=== PATIENT | female | born 1965 | race African-American/Black ===

== ENCOUNTER 2016-12-11 21:21 | Emergency (ER) | payer OTHER ==
[~2016-12-11] VITALS: Ht 167.6 cm; Wt 73.5 kg
[~2016-12-11 21:21] MED LIST: ACET500C5 PO; ALBU18HF IH; GABA600T PO; GLIM2TAB PO; INSU100C SC; LANT3I SC; METO10TA96 PO; NOV SC; ONDA4TAB35 PO; WARF5TAB72 PO
[2016-12-11 21:24] VITALS: Ht 167.6 cm; Wt 73.5 kg
--- NOTE | 2016-12-12 01:20 | RADRPT ---
PROCEDURE: XR Chest. CLINICAL INDICATION: Chest Pain. TECHNIQUE: Single frontal view of the chest was obtained. COMPARISON: 10/14/2015 FINDINGS: The cardiomediastinal silhouette is normal size. Pulmonary vasculature is within normal limits. Th e lungs are clear. No signs of pleural fluid or pneumothorax are seen. The osseous structures and soft tissues are unre markable. IMPRESSION: No evidence for active cardiopulmonary disease. RPTAT: HBST .Charles Bolivar MD, MD Date Time Electronically viewed and signed by .Charles Bolivar MD, on 12/12/2016 01:20 .T/
[2016-12-12 01:41] LABS: CHLORIDE 97 mmol/L (97-110); INR 0.92; POTASSIUM 3.7 mmol/L (3.5-5.1); PROTIME 12.4 Sec (12.2-14.2); SODIUM 140 mmol/L (135-144)
[2016-12-12 01:42] LABS: PARTIAL THROMBOPLASTIN TIME 26.9 Sec (25.0-35.0)
[2016-12-12 01:43] LABS: ANION GAP 17 (8-16); BILIRUBIN,INDIRECT 0.1 mg/dl (0-1.1); BILIRUBIN,TOTAL 0.1 mg/dl (0.2-1.3); CARBON DIOXIDE 30 mmol/L (21-31); CREATININE 0.52 mg/dl (0.44-1.00)
[2016-12-12 01:44] LABS: ALANINE AMINOTRANSFERASE 24 IU/L (13-69); ALBUMIN/GLOBULIN RATIO 0.93; ALKALINE PHOSPHATASE 152 IU/L (42-121); ASPARTATE AMINO TRANSFERASE 24 IU/L (15-46); BLOOD UREA NITROGEN 13 mg/dl (7-20); GLUCOSE 377 mg/dl (70-220); TOTAL PROTEIN 8.3 g/dl (6.1-8.1)
[2016-12-12 01:51] LABS: B-TYPE NATRIURETIC PEPTIDE 54 PG/ML (0-125)
--- NOTE | 2016-12-12 01:58 | RADRPT ---
PROCEDURE: ULTRASOUND BILATERAL LOWER EXTREMITY VENOUS CLINICAL INDICATION: 51-year-old female with lower extremity pain. TECHNIQUE: Multiple sonographic images of the bilateral lower extremity deep venous system was obt ained utilizing grayscale, color-flow, compressive sonography and doppler imaging with augmentation. The images were reviewed on a PACS workstation. COMPARISON: None. FINDINGS: There is normal compressibility and flow within the common femoral, deep femoral, superficial femora l, popliteal, posterior tibial and peroneal veins. IMPRESSION: No sonographic evidence for deep venous thrombosis. .Marshall Maldonado MD, MD Date Time Electronically viewed and signed by .Marshall Maldonado MD, MD on 12/12/2016 01:58 .Davis/
[2016-12-12 02:01] LABS: TROPONIN-I < 0.010 ng/ml (0.00-0.12)
[2016-12-12 02:08] LABS: BASOPHILS % 0.3 % (0.0-2.0); EOSINOPHILS # 0.1 10^3/ul (0.0-0.5); EOSINOPHILS % 1.4 % (0.0-7.0); HEMATOCRIT 36.7 % (37.0-47.0); HEMOGLOBIN 12.3 g/dl (12.0-16.0); LYMPHOCYTES # 2.5 10^3/ul (0.8-2.9); LYMPHOCYTES % 40.4 % (15.0-51.0); MEAN CORPUSCULAR HEMOGLOBIN 26.7 pg (29.0-33.0); MEAN CORPUSCULAR HGB CONC 33.4 g/dl (32.0-37.0); MEAN PLATELET VOLUME 8.6 fl (7.4-10.4); MONOCYTE # 0.5 10^3/ul (0.3-0.9); MONOCYTES % 7.4 % (0.0-11.0); NEUTROPHIL # 3.1 10^3/ul (1.6-7.5); NEUTROPHILS % 50.5 % (39.0-77.0); PLATELET COUNT 325 10^3/UL (140-440); RED BLOOD COUNT 4.59 10^6/ul (4.20-5.40); UNCORRECTED WBC 6.2 10^3/ul (4.8-10.8); WHITE BLOOD COUNT 6.2 10^3/ul (4.8-10.8)
[2016-12-12 02:10] LABS: CONDITION 1; LH ANALYZER COMMENTS 1
[2016-12-12] MEDS ORDERED: SOD CHLORIDE 0.9% 1,000 ML IV STA (03:38)
[2016-12-12] MEDS ORDERED: SOD CHLORIDE 0.9% 100 ML ONE (03:45)
[2016-12-12] MEDS ORDERED: IOHEXOL 300MG/ML 150 ML BTL ONE (03:46)
[2016-12-12] MEDS: INSULIN LISPRO 100 UNIT/ML VIAL SC STA ×2 (04:29→04:35)
[2016-12-12] MEDS ORDERED: INSULIN LISPRO 100 UNIT/ML VIAL SC STA (04:37)
[2016-12-12 04:54] LABS: ADD UMIC YES; URINE BILIRUBIN (Dip) NEGATIVE (NEGATIVE); URINE BLOOD (Dip) NEGATIVE (NEGATIVE); URINE COLOR LT. YELLOW (YELLOW); URINE GLUCOSE (Dip) >=1000 % (NEGATIVE); URINE KETONES (Dip) NEGATIVE (NEGATIVE); URINE LEUKOCYTE ESTERASE (Dip) TRACE (NEGATIVE); URINE NITRITE (Dip) NEGATIVE (NEGATIVE); URINE TOTAL PROTEIN (Dip) NEGATIVE (NEGATIVE); URINE UROBILINOGEN (Dip) 0.2 E.U./dL (0.1-1.0)
--- NOTE | 2016-12-12 04:57 | RADRPT ---
PROCEDURE: CTA CHEST WITH CONTRAST CLINICAL INDICATION: 51-year-old female with shortness of breath. The patient has a history of kellen or pulmonary embolus. TECHNIQUE: The study was performed utilizing a [employer] VCT 64-slice CT scanner. Direct axi al sections were obtained from the thoracic inlet through the chest to the upper abdomen with a bolu s injection of 100 cc of Omnipaque-300 nonionic contrast material. Sagittal, coronal and maximal int ensity projections re-formations were obtained. Automated exposure control and iterative reconstruct ion techniques were utilized for this examination. The images were reviewed on a PACS workstation. CTD/vol = 39.3 mGy; Total Exam DLP = 438.5 mGy-cm. COMPARISON: CT abdomen/pelvis August 04, 2015; the patient had prior CTAs of the chest from 2015 and October 25, 2015 performed at [facility] however the images are not onli ne for direct comparison however the dictations were utilized. FINDINGS: The aorta is without aneurysmal dilatation or dissection. There is trace fluid within the pericardia l recess. There are small lymph nodes seen within the mediastinum which are not pathologic by size c riteria. The central pulmonary arteries are without evidence for filling defect to suggest pulmonary embolus or thrombus. 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 There are nonocclusive filling defects seen within the right truncus anterior on axial image 3-101 as well as in the distal right interlobar ar e branches on axial image 3-127. There is minimal bilateral posterior dependent subsegmental atelec tasis. There is no evidence for a pneumothorax. The osseous structures are unremarkable. Scans through the upper abdomen reveals that the upper liver is enlarged having a maximal length of approximately 24.0 cm with diffuse decreased density consistent with fatty infiltration. The adrenal glands have a normal appearance. The upper kidneys are functional and are without evidence for obst ruction. IMPRESSION: 1. No CTA evidence for thoracic aortic aneurysm/dissection. 2. Somewhat limited examination secondary to incomplete opacification of the pulmonary arterial bra nches. There appear to be nonocclusive filling defects within the right trunkus anterior and distal right interlobar pulmonary arterial branches. It is difficult to tell whether this represents incom plete recanalization of prior pulmonary embolus versus recurrent pulmonary embolus. Clinical correl ation is necessary. 3. Minimal bilateral posterior dependent subsegmental atelectasis. 4. Hepatomegaly with diffuse fatty infiltration. CRITICAL RESULTS: A call report was made to [facility]IM[facility] Ch on December 12, 2016 at 04:4 0 a.m. .Marshall Maldonado MD, MD Date Time Electronically viewed and signed by .Marshall Maldonado MD, MD on 12/12/2016 04:57 .M/
[2016-12-12 05:16] LABS: URINE RBCS 0-2 /HPF (0)
[2016-12-12 05:17] LABS: BACTERIA,URINE OCCASIONAL; SQUAMOUS EPITHELIAL CELL,UR FEW
[2016-12-12] MEDS ORDERED: ENOX100D2 SC (06:03)
[2016-12-12] MEDS ORDERED: WARF5TAB72 PO (06:04)
[2016-12-12] MEDS ORDERED: LANT3I SC (06:15)
[2016-12-12] MEDS ORDERED: GABA100C14 PO (06:28)
[2016-12-12] MEDS ORDERED: ENOXAPARIN 80 MG/0.8 ML SYG SC ONE (06:30)
[2016-12-12] MEDS ORDERED: ENOXAPARIN 30 MG/0.3 ML SYG SC ONE (06:30)
[2016-12-12 06:35] VITALS: TEMP 98.3
[2016-12-12 06:55] VITALS: BP 106/78; PULSE 74; RESP 18
--- NOTE | 2016-12-12 07:15 | ERD ---
ER Documentation Chief Complaint Date/Time DATE: 12/12/16 TIME: 06:36 Chief Complaint right leg pain,right toes pain, no injury HPI Patient is a 51-year-old female with past medical history of diabetes, diabetic neuropathy, pulmonary embolism, DVT, asthma who presents to the emergency department with right leg and foot pain. She states that her pain started approximately 2 days ago. She describes the pain to be burning. Patient also complaining of swelling to her right lower leg. Patient states that she's noted prominence and bulging of her veins. She denies any weakness or tingling. Denies any trouble ambulating. Patient also states that she has a wound to her right big toe which is not healing. She denies any chest pain but is complaining of shortness of breath. She states that her shortness of breath is worse when lying down. Patient does have a history of pulmonary embolism approximately one year ago. Patient states that she was started on warfarin therapy but stopped it approximately 1.5 months ago given that her managing physician retired. Patient denies any recent travel, recent surgery, hemoptysis , prolonged sitting or OCP use. She denies any fevers, chills, nausea, vomiting , abdominal pain or loss of consciousness. She states the last time she took her insulin was approximately 1.5 months ago. Since her previous physician retired, patient has not had any medication refills. Patient denies any polyphagia or polyuria. Patient admits to polydipsia. She does report burning pain with urination. ROS All systems reviewed and are negative except as per history of present illness. Medications Home Meds Active Scripts Gabapentin* (Gabapentin*) 100 Mg Capsule, 100 MG PO TID, #30 CAP Prov:ANAND ASHER PA-C 12/12/16 Insulin Glargine* (Lantus*) 100 Unit/Ml Soln, 36 UNIT SC QHS, #1 VIAL Prov:ANAND ASHER PA-C 12/12/16 Warfarin Sodium* (Coumadin*) 5 Mg Tablet, 5 MG PO DAILY, #10 TAB Prov:ANAND ASHER PA-C 12/12/16 Enoxaparin Sodium (Enoxaparin Sodium) 100 Mg/1 Ml Syringe, 70 MG SC BID for 7 Days Prov:ANAND ASHER PA-C 12/12/16 Acetaminophen* (Tylophen*) 500 Mg Capsule, 1 CAP PO Q6H Y for PAIN AND OR ELEVATED TEMP, #20 CAP Prov:STAN PATEL NP 05/15/16 Metoclopramide Hcl* (Metoclopramide Hcl*) 10 Mg Tablet, 10 MG PO TID Y for NAUSEA AND/OR VOMITING, #30 TAB Prov:KANDICAROLINACory 09/07/15 Insulin Aspart* (Novolog Insulin Vial*) 100 U/Ml Vial, 12 UNIT SC WITH MEALS BEDTIME, #1 VIAL Prov:KANDIKELLY GILL 09/07/15 Insulin Glargine* (Lantus*) 100 Unit/Ml Soln, 36 UNIT SC HS, #1 VIAL Prov:KELLY CHAU 09/07/15 Ondansetron Hcl* (Zofran* ODT) 4 mg -ODT Tab.disper, 4 MG PO Q4H Y for NAUSEA AND OR VOMITING, #20 TAB Prov:MADISON BELL MD 09/01/15 Insulin Glargine* (Lantus*) 100 Unit/Ml Soln, 36 UNIT SC DAILY, #30 EA 3 Refills Prov:ELISA ZIMMERMAN 05/22/15 Reported Medications Warfarin Sodium* (Coumadin*) Unknown Strength Tablet, PO DAILY, #10 TAB 05/15/16 Insulin Lispro (Humalog) 100 U/Ml Cartridge, 0 SC SLIDING SCALE AC, EA 09/01/15 Glimepiride* (Glimepiride*) 2 Mg Tablet, 2 MG PO BID, TAB 05/16/15 Gabapentin* (Neurontin*) 600 Mg Tablet, 600 MG PO DAILY, TAB 05/16/15 Albuterol Sulfate* (Ventolin HFA*) 18 Gm Hfa.aer.ad, 2 PUFF IH Q4H Y for WHEEZING AND RESP DISTRESS, EA 05/16/15 Allergies Allergies: Coded Allergies: metformin (Verified Allergy, Mild, itchiness, 09/02/15) sitagliptin (Verified Allergy, Mild, nausea,vomiting, 09/02/15) Sulfa (Sulfonamide Antibiotics) (Verified Allergy, Unknown, 09/02/15) Uncoded Allergies: [id number] (SULFA (SULFONAMIDE ANTIBIOTICS)) (Allergy, Mild, 09/01/10) PMhx/Soc Medical and Surgical Hx: pt denies Surgical Hx History of Surgery: No Anesthesia Reaction: No Hx Neurological Disorder: No Hx Respiratory Disorders: Yes (PE, Asthma) Hx Cardiac Disorders: No Hx Psychiatric Problems: No Hx Miscellaneous Medical Probl: Yes (DM, Neuropathy) Hx Alcohol Use: No Hx Substance Use: No Hx Tobacco Use: No Smoking Status: Never smoker FmHx Family History: diabetes Physical Exam Vitals Vital Signs Date Time Temp Pulse Resp B/P Pulse Ox O2 Delivery O2 Flow Rate FiO2 12/12/16 06:55 74 18 106/78 98 Room Air 12/12/16 06:35 98.3 74 16 106/78 100 Room Air 12/12/16 06:03 72 16 108/67 100 Room Air 12/12/16 03:49 83 14 129/87 100 Room Air 12/11/16 21:24 96.5 81 20 146/94 99 Physical Exam GENERAL: Well-developed, well-nourished female. Appears in no acute distress. HEAD: Normocephalic, atraumatic. No deformities or ecchymosis. EYE: Pupils equal, round, and reactive to light. EOMs intact. No conjunctival erythema. No scleral icterus. No eye discharge. ENT: External ear without any masses or tenderness. Auditory canals clear bilaterally. TM visualized bilaterally, non-erythematous, non-bulging. Nasal mucosa pink with no discharge. Oropharynx is pink without any tonsillar erythema or exudates. No uvula deviation. No kissing tonsils. NECK: Supple. No lymphadenopathy or thyromegaly. No meningismus. No JVD. No bruits. Trachea midline. LUNG: Clear to auscultation bilaterally. No rhonchi, wheezing, rales or coarse breath sounds. HEART: Regular rate and rhythm. No murmurs, rubs or gallops. ABDOMEN: Soft, nontender, and nondistended. Positive bowel sounds in all four quadrants. No rebound tenderness, no guarding. (-) McBurney's point tenderness. No CVA tenderness. BACK: No midline tenderness. EXTREMITIES: Equal pulses bilaterally. No peripheral clubbing, cyanosis or edema. No unilateral leg swelling. NEUROLOGIC: Alert and oriented to person, place and time. Moving all four extremities. 5/5 strength in all extremities. Normal speech. Steady gait. Negative Brudzinski sign. Negative Kernig sign. SKIN: Normal color. Warm and dry. No rashes or lesions. RIGHT LOWER EXTREMITY: No deformity, erythema or ecchymosis. +Pitting edema to miranda. Superficial abrasions to the right big toe. Prominent bulging vein noted of medial aspect of lower leg. Full ROM of toes, ankle. +Squeeze test. Sensation intact to light touch. Neurovascularly intact. (Able to plantarflex, dorsiflex, bre foot, invert foot, raise big toe.) 2+ DP and DT pulses. Result Diagram: 12/12/1610612/12/16106 Results 24 hrs Laboratory Tests Test 12/12/16 01:07 12/12/16 03:30 12/12/16 04:33 12/12/16 05:37 Activated Partial Thromboplast Time 26.9Sec Alanine Aminotransferase (ALT/SGPT) 24IU/L Albumin 4.0g/dl Albumin/Globulin Ratio 0.93 Alkaline Phosphatase 152IU/L Anion Gap 17 Aspartate Amino Transf (AST/SGOT) 24IU/L B-Type Natriuretic Peptide 54PG/ML Basophils # 0.010^3/ul Basophils % 0.3% Blood Morphology Comment Blood Urea Nitrogen 13mg/dl Calcium Level 9.0mg/dl Carbon Dioxide Level 30mmol/L Chloride Level 97mmol/L Creatinine 0.52mg/dl Direct Bilirubin 0.00mg/dl Eosinophils # 0.110^3/ul Eosinophils % 1.4% Globulin 4.30g/dl Glucose Level 377mg/dl Hematocrit 36.7% Hemoglobin 12.3g/dl INR International Normalized Ratio 0.92 Indirect Bilirubin 0.1mg/dl Lymphocytes # 2.510^3/ul Lymphocytes % 40.4% Mean Corpuscular Hemoglobin 26.7pg Mean Corpuscular Hemoglobin Concent 33.4g/dl Mean Corpuscular Volume 80.0fl Mean Platelet Volume 8.6fl Monocytes # 0.510^3/ul Monocytes % 7.4% Neutrophils # 3.110^3/ul Neutrophils % 50.5% Nucleated Red Blood Cells # 0.010^3/ul Nucleated Red Blood Cells % 0.0/100WBC Platelet Count 77357^3/UL Potassium Level 3.7mmol/L Prothrombin Time 12.4Sec Prothrombin Time Ratio 1.0 Red Blood Count 4.5910^6/ul Red Cell Distribution Width 15.0% Sodium Level 140mmol/L Total Bilirubin 0.1mg/dl Total Protein 8.3g/dl Troponin I < 0.010ng/ml White Blood Count 6.210^3/ul Urine Bacteria OCCASIONAL Urine Bilirubin NEGATIVE Urine Clarity CLEAR Urine Color LT. YELLOW Urine Glucose >=1000% Urine Hemoglobin NEGATIVE Urine Ketones NEGATIVE Urine Leukocyte Esterase TRACE Urine Microscopic RBC 0-2/HPF Urine Microscopic WBC 5-10/HPF Urine Nitrite NEGATIVE Urine Specific Louisa <=1.005 Urine Squamous Epithelial Cells FEW Urine Total Protein NEGATIVE Urine Urobilinogen 0.2 E.U./dL Urine pH 6.5 Bedside Glucose 318mg/dL 238mg/dL Current Medications Medications (Trade) Dose Ordered Sig/Reyna Route PRN Reason Start Time Stop Time Status Last Admin Dose Admin Sodium Chloride (NS) 1,000 ml @ 1,000 mls/hr Q1H STAT IV 12/12/16 03:38 12/12/16 04:37 DC 12/12/16 04:14 Insulin Human Lispro 8 unit 8 unit ONCE STAT SC 12/12/16 03:38 12/12/16 04:39 DC Sodium Chloride (NS) 100 ml @ ud STK-MED ONCE .ROUTE 12/12/16 03:45 12/12/16 03:46 DC 12/12/16 04:17 Iohexol (Omnipaque 300mg/ ml) 150 ml STK-MED ONCE .ROUTE 12/12/16 03:46 12/12/16 03:47 DC 12/12/16 04:17 Insulin Human Lispro (Humalog) 6 unit ONCE STAT SC 12/12/16 04:37 12/12/16 04:39 DC 12/12/16 04:40 Enoxaparin Sodium (Lovenox) 73 mg ONCE ONCE SC 12/12/16 06:30 12/12/16 06:30 DC Enoxaparin Sodium (Lovenox) 73 mg ONCE ONCE SC 12/12/16 06:30 12/12/16 06:31 DC 12/12/16 06:32 Procedures/MDM ED COURSE: The patient was stable throughout ED course. I kept the patient and/or family informed of laboratory and diagnostic imaging results throughout the ED course. EKG: Read by Dr. Howard, attending physician. EKG shows normal sinus rhythm at a rate of 71 bpm. No arrhythmias, acute ST elevations or T wave changes were noted. DIAGNOSTIC IMAGING: Read by radiologist. DIAGNOSTIC IMAGING REPORT Patient: SEPIDEH ARCEO : 1965 Age: 51 Sex: F MR #: [id number] DOS: 12/12/16 0034 Ordering MD: ANAND ASHER PA-C Location: [facility] Room/Bed: PROCEDURE: XR Chest. CLINICAL INDICATION: Chest Pain. TECHNIQUE: Single frontal view of the chest was obtained. COMPARISON: 10/14/2015 FINDINGS: The cardiomediastinal silhouette is normal size. Pulmonary vasculature is within normal limits. The lungs are clear. No signs of pleural fluid or pneumothorax are seen. The osseous structures and soft tissues are unremarkable. IMPRESSION: No evidence for active cardiopulmonary disease. RPTAT: HBST .Charles Bolivar MD, MD Date Time Electronically viewed and signed by .Charles Bolivar MD, on 12/12/2016 01:20 .T/ CC: ANAND ASHER PA-C DIAGNOSTIC IMAGING REPORT Patient: SEPIDEH ARCEO : 1965 Age: 51 Sex: F MR #: [id number] DOS: 12/12/16 0034 Ordering MD: ANAND ASHER PA-C Location: [facility] Room/Bed: PROCEDURE: ULTRASOUND BILATERAL LOWER EXTREMITY VENOUS CLINICAL INDICATION: 51-year-old female with lower extremity pain. TECHNIQUE: Multiple sonographic images of the bilateral lower extremity deep venous system was obtained utilizing grayscale, color-flow, compressive sonography and doppler imaging with augmentation. The images were reviewed on a PACS workstation. COMPARISON: None. FINDINGS: There is normal compressibility and flow within the common femoral, deep femoral , superficial femoral, popliteal, posterior tibial and peroneal veins. IMPRESSION: No sonographic evidence for deep venous thrombosis. .Marshall Maldonado MD, MD Date Time Electronically viewed and signed by .Marshall Maldonado MD, MD on 12/12/2016 01:58 .M/ CC: ANAND ASHER PA-C DIAGNOSTIC IMAGING REPORT Patient: SEPIDEH ARCEO : 1965 Age: 51 Sex: F MR #: [id number] DOS: 12/12/16 0338 Ordering MD: ANAND ASHER PA-C Location: [facility] Room/Bed: PROCEDURE: CTA CHEST WITH CONTRAST CLINICAL INDICATION: 51-year-old female with shortness of breath. The patient has a history of prior pulmonary embolus. TECHNIQUE: The study was performed utilizing a ThumbT 64-slice CT scanner. Direct axial sections were obtained from the thoracic inlet through the chest to the upper abdomen with a bolus injection of 100 cc of Omnipaque- 300 nonionic contrast material. Sagittal, coronal and maximal intensity projections re-formations were obtained. Automated exposure control and iterative reconstruction techniques were utilized for this examination. The images were reviewed on a PACS workstation. CTD/vol = 39.3 mGy; Total Exam DLP = 438.5 mGy-cm. COMPARISON: CT abdomen/pelvis August 04, 2015; the patient had prior CTAs of the chest from July 31, 2016 and October 25, 2015 performed at [facility] however the images are not online for direct comparison however the dictations were utilized. FINDINGS: The aorta is without aneurysmal dilatation or dissection. There is trace fluid within the pericardial recess. There are small lymph nodes seen within the mediastinum which are not pathologic by size criteria. The central pulmonary arteries are without evidence for filling defect to suggest pulmonary embolus or thrombus. 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 There are nonocclusive filling defects seen within the right truncus anterior on axial image 3-101 as well as in the distal right interlobar are branches on axial image 3-127. There is minimal bilateral posterior dependent subsegmental atelectasis. There is no evidence for a pneumothorax. The osseous structures are unremarkable. Scans through the upper abdomen reveals that the upper liver is enlarged having a maximal length of approximately 24.0 cm with diffuse decreased density consistent with fatty infiltration. The adrenal glands have a normal appearance. The upper kidneys are functional and are without evidence for obstruction. IMPRESSION: 1. No CTA evidence for thoracic aortic aneurysm/dissection. 2. Somewhat limited examination secondary to incomplete opacification of the pulmonary arterial branches. There appear to be nonocclusive filling defects within the right trunkus anterior and distal right interlobar pulmonary arterial branches. It is difficult to tell whether this represents incomplete recanalization of prior pulmonary embolus versus recurrent pulmonary embolus. Clinical correlation is necessary. 3. Minimal bilateral posterior dependent subsegmental atelectasis. 4. Hepatomegaly with diffuse fatty infiltration. CRITICAL RESULTS: A call report was made to [facility] on December 12, 2016 at 04:40 a.m. .Marshall Maldonado MD, Date Time Electronically viewed and signed by .Marshall Maldonado MD, MD on 12/12/2016 04:57 .M/ CC: ANAND ASHER PA-C MEDICATIONS GIVEN: IV fluids, Humalog, Lovenox MEDICAL DECISION MAKING: Patient is a 51-year-old female with a past medical history of diabetes, diabetic neuropathy, pulmonary embolism, DVT, asthma who presented to the emergency department with right leg and foot pain. Vital signs were reviewed. Patient is afebrile. Patient was not hypoxic. CBC showed no evidence of systemic infection or severe anemia. CMP showed no evidence severe acidosis, alkalosis, renal failure, or liver disease. Glucose level was noted to be 377. Patient was given Humalog 6 units in the emergency department. Patient's glucose level came down to 238. Patient was restarted on Lantus. Patient was advised to follow-up with her primary care physician for management of her diabetes. UA showed no evidence of ketones, trace leukocyte esterase, +1000 glucose. Patient did not display signs of DKA or HHS. Troponin was negative. Chest x-ray was negative. EKG showed normal sinus rhythm with a heart rate of 71 bpm. BNP was 54. Low suspicion for ACS, pericarditis, arrhythmia, pneumothorax, pneumonia or congestive heart failure. Physical exam revealed swelling and prominence of veins to the patient's right lower extremity. Given the patient's history of DVT, bilateral venous doppler studies were obtained. Venous Doppler study showed No sonographic evidence for deep venous thrombosis. Given the patient's history of PE, a CTPA was ordered. I had a discussion with my supervising physician, Dr. Howard, prior to ordering the CTPA. CTPA showed no CTA evidence for thoracic aortic aneurysm/dissection. Somewhat limited examination secondary to incomplete opacification of the pulmonary arterial branches. There appear to be nonocclusive filling defects within the right trunkus anterior and distal right interlobar pulmonary arterial branches. It is difficult to tell whether this represents incomplete recanalization of prior pulmonary embolus versus recurrent pulmonary embolus. Clinical correlation is necessary. Minimal bilateral posterior dependent subsegmental atelectasis. Hepatomegaly with diffuse fatty infiltration. CTPA findings were discussed with Dr. Howard. At this time, the patient appears stable and can be managed on an outpatient basis. Patient will be started on Lovenox and Coumadin today. Patient was given her first dose of Lovenox here in the emergency department. Patient will need to have her INR checked in 2 days. Patient was advised to follow with her primary care physician or return to the emergency department in 2 days for INR recheck. At this time, the patient's presentation is most consistent with pulmonary embolism and diabetic neuropathy. Patient will be given gabapentin for her leg and foot pain. PRESCRIPTION: Lovenox, Coumadin, Gabapentin, Lantus DISCHARGE: At this time, patient is stable for discharge and outpatient management. I have instructed the patient to follow-up with his/her primary care physician or return to the ED in 1-2 days for INR check. I have instructed the patient to promptly return to the ER for any new or worsening symptoms including increased pain, fever, nausea, vomiting, weakness or LOC. The patient and/or family expressed understanding of and agreement with this plan. All questions were answered. Home care instructions were provided. I discussed this case with my supervising physician, Dr. Howard, on numerous occasions. Dr. Howard agreed with the above mentioned diagnosis, treatment plan and discharge plan. Patients random blood sugar level was elevated (>140), but appears stable without evidence of DKA or end organ failure. I had discussion with the patient about the risk of diabetes. I have advised the patient to follow up with his/her primary care physician for outpatient monitoring and treatment for elevated blood sugar levels in 2-3 days. I have instructed the patient to return to the ER for any new or worsening symptoms including chest pain, shortness of breath, headache, confusion, abdominal pain, nausea, vomiting, weakness or LOC. Departure Diagnosis: Primary Impression: Pulmonary embolism Pulmonary embolism type: other Chronicity: unspecified Acute cor pulmonale presence: without acute cor pulmonale Qualified Code: I26.99 - Other pulmonary embolism without acute cor pulmonale, unspecified chronicity Additional Impressions: Diabetes Diabetes mellitus type: type 1 Diabetes mellitus complication status: with unspecified complications Qualified Code: E10.8 - Type 1 diabetes mellitus with complication Poor compliance with medication Diabetic neuropathy associated with diabetes mellitus due to underlying condition Diabetes mellitus complication detail: with other neurological complication Qualified Code: E08.49 - Other diabetic neurological complication associated with diabetes mellitus due to underlying condition Condition: Stable Patient Instructions: Pulmonary Embolism, Managing Your Glucose Level for Diabetes and Kidney Disease Referrals: [facility] YOU HAVE RECEIVED A MEDICAL SCREENING EXAM AND THE RESULTS INDICATE THAT YOU DO NOT HAVE A CONDITION THAT REQUIRES URGENT TREATMENT IN THE EMERGENCY DEPARTMENT. FURTHER EVALUATION AND TREATMENT OF YOUR CONDITION CAN WAIT UNTIL YOU ARE SEEN IN YOUR DOCTORS OFFICE WITHIN THE NEXT 1-2 DAYS. IT IS YOUR RESPONSIBILITY TO MAKE AN APPOINTMENT FOR FOLOW-UP CARE. IF YOU HAVE A PRIMARY DOCTOR --you should call your primary doctor and schedule an appointment IF YOU DO NOT HAVE A PRIMARY DOCTOR YOU CAN CALL OUR PHYSICIAN REFERRAL HOTLINE AT IF YOU CAN NOT AFFORD TO SEE A PHYSICIAN YOU CAN CHOSE FROM THE FOLLOWING [facility] [address] [facility]. [facility] [address] [facility] [address] [facility] [address] [facility]. [facility] [address] [facility]. [facility] [address] [facility]. [facility] YOU HAVE RECEIVED A MEDICAL SCREENING EXAM AND THE RESULTS INDICATE THAT YOU DO NOT HAVE A CONDITION THAT REQUIRES URGENT TREATMENT IN THE EMERGENCY DEPARTMENT. FURTHER EVALUATION AND TREATMENT OF YOUR CONDITION CAN WAIT UNTIL YOU ARE SEEN IN YOUR DOCTORS OFFICE WITHIN THE NEXT 1-2 DAYS. IT IS YOUR RESPONSIBILITY TO MAKE AN APPOINTMENT FOR FOLOW-UP CARE. IF YOU HAVE A PRIMARY DOCTOR --you should call your primary doctor and schedule and appointment IF YOU DO NOT HAVE A PRIMARY DOCTOR YOU CAN CALL OUR PHYSICIAN REFERRAL HOTLINE AT . IF YOU CAN NOT AFFORD TO SEE A PHYSICIAN YOU CAN CHOSE FROM THE FOLLOWING [facility] INSTITUTIONS: [facility] [address] [place] [address] [facility] [address] [place], [place] [id number] [place] [address] [address] [place] [address] Additional Instructions: Call your primary care physician immediately for a follow-up appointment. Return to emergency department for any new or worsening symptoms not limited to chest pain, shortness of breath, vomiting, numbness, weakness. Start Lovenox today. Take twice per day x 7 days. Start Coumadin today. Recheck INR level in 2 days. If unable to be seen by your primary care physician, return to the ER. ANAND ASHER PA-C Dec 12, 2016 06:46
== END 2016-12-12 06:58 | disposition home or self-care (01) ==
LOC: FTE 21:21
DX: I26.99 Other pulmonary embolism without acute cor pulmonale (principal); J45.909 Unspecified asthma, uncomplicated; E08.49 Diabetes mellitus due to underlying condition with other diabetic neurological complication; Z79.01 Long term (current) use of anticoagulants; Z79.4 Long term (current) use of insulin; Z79.84 Long term (current) use of oral hypoglycemic drugs
CPT/HCPCS: 36415; 71010; 71275; 80053; 81001; 82962; 83880; 84484; 85025; 85610; 85730; 93005; 93965; 96360; 96361; 96372; J1650; J1815; J7030; Q9967; Z7502; Z7610; 81003

== ENCOUNTER 2017-04-04 12:43 | Inpatient (IN) | payer OTHER ==
[~2017-04-04] VITALS: Ht 167.6 cm; Wt 72.7 kg
[~2017-04-04 12:43] MED LIST changes: +ENOX100D2 SC; +GABA100C14 PO
[2017-04-04] MEDS ORDERED: ACETAMINOPHEN 325 MG TAB PO PRN (13:00)
[2017-04-04] MEDS ORDERED: ONDANSETRON 4 MG INJ IV PRN (13:00)
[2017-04-04] MEDS ORDERED: GABA-526 PO (13:47)
--- NOTE | 2017-04-04 13:51 | ERA ---
ER Documentation Chief Complaint Date/Time DATE: 04/04/17 TIME: 13:50 Chief Complaint sob and cp (bilat PE) HPI Patient is a 51-year-old female with diabetes and previous pulmonary embolism who presents with bilateral pulmonary embolism. The patient was seen at [facility] emergency department and diagnosed with bilateral pulmonary embolism. The patient was going to be a direct admit to [facility] because she is capitated here. However there are no beds available and therefore the patient was transferred from the [facility] emergency department to the [facility] emergency department. The patient describes chest pain which is sharp and stabbing. She also has radiation down her left arm. She said this started 48 hours ago and comes and goes. She is on Coumadin but ran out 2 weeks ago. She was placed on heparin drip at [facility]. She does not know the name of her primary doctor. ROS All systems reviewed and are negative except as per history of present illness. Medications Home Meds Active Scripts Insulin Glargine* (Lantus*) 100 Unit/Ml Soln, 36 UNIT SC QHS, #1 VIAL Prov:ANAND ASHER PA-C 12/12/16 Reported Medications Gabapentin* (Gabapentin*) 600 Mg Tablet, 600 MG PO QHS, #60 TAB 04/04/17 Warfarin Sodium* (Coumadin*) Unknown Strength Tablet, PO DAILY, #10 TAB 05/15/16 Insulin Lispro (Humalog) 100 U/Ml Cartridge, 0 SC SLIDING SCALE AC, EA 09/01/15 Glimepiride* (Glimepiride*) 2 Mg Tablet, 2 MG PO BID, TAB 05/16/15 Albuterol Sulfate* (Ventolin HFA*) 18 Gm Hfa.aer.ad, 2 PUFF IH Q4H Y for WHEEZING AND RESP DISTRESS, EA 05/16/15 Discontinued Reported Medications Gabapentin* (Neurontin*) 600 Mg Tablet, 600 MG PO DAILY, TAB 05/16/15 Discontinued Scripts Gabapentin* (Gabapentin*) 100 Mg Capsule, 100 MG PO TID, #30 CAP Prov:ANAND ASHER PA-C 12/12/16 Warfarin Sodium* (Coumadin*) 5 Mg Tablet, 5 MG PO DAILY, #10 TAB Prov:ANAND ASHER PA-C 12/12/16 Enoxaparin Sodium (Enoxaparin Sodium) 100 Mg/1 Ml Syringe, 70 MG SC BID for 7 Days Prov:ANAND ASHER PA-C 12/12/16 Acetaminophen* (Tylophen*) 500 Mg Capsule, 1 CAP PO Q6H Y for PAIN AND OR ELEVATED TEMP, #20 CAP Prov:STAN PATEL NP 05/15/16 Metoclopramide Hcl* (Metoclopramide Hcl*) 10 Mg Tablet, 10 MG PO TID Y for NAUSEA AND/OR VOMITING, #30 TAB Prov:KELLY CHAU 09/07/15 Insulin Aspart* (Novolog Insulin Vial*) 100 U/Ml Vial, 12 UNIT SC WITH MEALS BEDTIME, #1 VIAL Prov:KELLY CHAU 09/07/15 Insulin Glargine* (Lantus*) 100 Unit/Ml Soln, 36 UNIT SC HS, #1 VIAL Prov:KELLY CHAU 09/07/15 Ondansetron Hcl* (Zofran* ODT) 4 mg -ODT Tab.disper, 4 MG PO Q4H Y for NAUSEA AND OR VOMITING, #20 TAB Prov:MADISON BELL MD 09/01/15 Insulin Glargine* (Lantus*) 100 Unit/Ml Soln, 36 UNIT SC DAILY, #30 EA 3 Refills Prov:ELISA ZIMMERMAN 05/22/15 Allergies Allergies: Coded Allergies: metformin (Verified Allergy, Mild, itchiness, 04/04/17) sitagliptin (Verified Allergy, Mild, nausea,vomiting, 04/04/17) Sulfa (Sulfonamide Antibiotics) (Verified Allergy, Unknown, 04/04/17) Uncoded Allergies: [id number] (SULFA (SULFONAMIDE ANTIBIOTICS)) (Allergy, Mild, 09/01/10) PMhx/Soc History of Surgery: No Anesthesia Reaction: No Hx Neurological Disorder: No Hx Respiratory Disorders: Yes (PE, Asthma) Hx Cardiac Disorders: No Hx Psychiatric Problems: No Hx Miscellaneous Medical Probl: Yes (DM, Neuropathy) Hx Alcohol Use: No Hx Substance Use: No Hx Tobacco Use: No Smoking Status: Never smoker FmHx Family History: diabetes Physical Exam Vitals Vital Signs Date Time Temp Pulse Resp B/P Pulse Ox O2 Delivery O2 Flow Rate FiO2 04/04/17 13:30 99.4 93 18 123/80 100 Physical Exam Const: No acute distress Head: Atraumatic Eyes: Normal Conjunctiva ENT: Normal External Ears, Nose and Mouth. Neck: Full range of motion..~ No meningismus. Resp: Clear to auscultation bilaterally Cardio: Regular rate and rhythm, no murmurs Abd: Soft, non tender, non distended. Normal bowel sounds Skin: No petechiae or rashes Back: No midline or flank tenderness Ext: No cyanosis, or edema Neur: Awake and alert Psych: Normal Mood and Affect Results 24 hrs Current Medications Medications (Trade) Dose Ordered Sig/Reyna Route PRN Reason Start Time Stop Time Status Last Admin Dose Admin Ondansetron HCl (Zofran Inj) 4 mg ER BRIDGE PRN IV NAUSEA AND/OR VOMITING 04/04/17 13:00 04/05/17 12:59 Acetaminophen (Tylenol Tab) 650 mg ER BRIDGE PRN PO MILD PAIN/FEVER 04/04/17 13:00 04/05/17 12:59 Procedures/MDM Patient is a 51-year-old female who presents with bilateral pulmonary embolism. I spoke with Dr. Erickson who is already aware of the patient. The patient will be admitted to a telemetry bed. The patient has a workup that was performed at [facility] emergency department. She does not require any further workup here in the emergency department. She will be admitted to a telemetry bed. Departure Diagnosis: Primary Impression: Pulmonary embolism Qualified Code: I26.99 - Other acute pulmonary embolism without acute cor pulmonale Condition: KORIN Butts MD April 04, 2017 13:51
[2017-04-04] MEDS ORDERED: BISACODYL (EC) 5 MG TAB PO PRN (16:00)
[2017-04-04] MEDS ORDERED: hydrALAzine 20 MG INJ IV PRN (16:00)
[2017-04-04] MEDS ORDERED: HYDROCODONE/APAP (5/325) TAB PO PRN (16:00)
[2017-04-04] MEDS ORDERED: MAGNESIUM HYDROXIDE 30ML CUP PO PRN (16:00)
[2017-04-04] MEDS ORDERED: NACL 0.9% 3 ML SYG IV SCH (16:00)
[2017-04-04] MEDS ORDERED: ALBUTEROL 0.083% (NEB) 2.5 MG/3 ML AMP HHN PRN (16:30)
[2017-04-04] MEDS ORDERED: GLUCOSE GEL 15 GRAM TUBE BUCCAL PRN (17:00)
[2017-04-04] MEDS ORDERED: GLUCOSE GEL 15 GRAM TUBE PO PRN ×2 (17:00)
[2017-04-04] MEDS ORDERED: DEXTROSE 50% 50 ML SYRINGE IV PRN ×2 (17:00)
[2017-04-04] MEDS ORDERED: GLUCAGON 1 MG INJ IM PRN (17:00)
--- NOTE | 2017-04-04 17:16 | HP ---
DATE OF ADMISSION: 04/04/2017 REASON FOR ADMISSION: Transferred from outside facility because of bilateral pulmonary embolism. CONSULTANTS: Dr. Molina To from hematology. HISTORY OF PRESENT ILLNESS: This is a 51-year-old female with past medical history of pulmonary embolism on Coumadin, type 2 diabetes mellitus , diabetic neuropathy, asthma, and diabetic gastroparesis who went to the local emergency room because of sudden onset of chest pain that was substernal with associated radiation of chest pain to the left arm. The patient denied any associated nausea, vomiting, or diaphoresis. The patient verbalized that the chest pain is worse with deep inspiration. Other than that, the patient denied any cough or dyspnea on exertion. The patient denied any fevers, chills, abdominal pain, diarrhea, hematochezia, melena, dysuria, or hematochezia. The patient was complaining of bilateral eye redness and itching with increased secretions. The patient denied any known contacts to any conjunctivitis. In the emergency room at [facility], the patient underwent a CT angiogram of the chest that showed multiple acute to subacute/chronic bilateral lower lobe pulmonary emboli involving the lower lobes and upper lobes bilaterally extending to subsegmental level and associated with flattening of the intraventricular septum. Hence, the patient was started on a heparin drip, and the patient was transferred to [facility] for further evaluation because of insurance reasons. PAST MEDICAL HISTORY: 1. Pulmonary embolism. 2. Type 2 diabetes 3. Diabetic neuropathy. 4. Asthma. 5. Gastroparesis. 6. Anemia. PAST SURGICAL HISTORY: . HOME MEDICATIONS: 1. ProAir HFA 2 puffs inhaled q. 4 hours p.r.n. dyspnea. 2. Coumadin. 3. Gabapentin 600 mg p.o. at bedtime. 4. Glimepiride 2 mg p.o. b.i.d. 5. Lantus insulin 36 units subcutaneously at bedtime. 6. Lispro insulin as per sliding scale. ALLERGIES: 1. SULFA. 2. METFORMIN. 3. SITAGLIPTIN. SOCIAL HISTORY: The patient lives at home with her family. Denies any use of tobacco, alcohol, or illicit drugs. Currently unemployed. REVIEW OF SYSTEMS: A 12-point review of systems performed. The remaining review of systems were negative other than what is mentioned in history of present illness. PHYSICAL EXAMINATION: VITAL SIGNS: Temperature 99.4, pulse rate 90, respiratory rate 21, blood pressure 124/95, saturation 98% on low flow O2. GENERAL: The patient is an female lying in bed in no apparent distress. HEENT: Head normocephalic and atraumatic. Eyes: Anicteric. Sclerae are red and inflamed with tearing of eyes, right greater than left. ENT: Nasal septum is midline. Oral mucosa is dry. NECK: Supple. No JVD noticed. RESPIRATORY: Bilaterally clear to auscultation. No adventitious breath sounds. No use of accessory muscles of respiration. CARDIAC: Regular rate and rhythm. S1, S2 heard. ABDOMEN: Soft, nontender, and nondistended. Bowel sounds positive in all 4 quadrants. GENITOURINARY: Deferred. EXTREMITIES: No cyanosis. No clubbing. No calf tenderness. Bilateral dorsalis pedis pulses 1+. NEUROLOGIC: The patient is awake, alert. Nerves are grossly intact. LABORATORY AND DIAGNOSTIC DATA: Pending from [facility]. CT angiogram from outside facility shows multiple acute to subacute/chronic bilateral lower lobe pulmonary emboli involving the lower lobes and upper lobes bilaterally extending to the subsegmental level and associated with flatten of the intraventricular septum. IMPRESSION: This is a 51-year-old female with past medical history of pulmonary embolism who went to the local emergency room with chest pain and was found to have bilateral pulmonary embolism. She will be admitted here for further treatment and evaluation. ASSESSMENT AND PLAN: 1. Pulmonary embolism. Bilateral. The patient was not taking her Coumadin for the past 2 weeks. It is unclear whether the patient had recurrent pulmonary embolism because of this subtherapeutic warfarin. Nevertheless, the patient will be evaluated for any underlying hypercoagulable state. The patient denied any prolonged immobility in the recent past. A hematology consult will be obtained. A hypercoagulable workup including protein C, protein S, lupus anticoagulant, and antithrombin III will be ordered. 2. Chest pain. The chest pain could be most probably secondary to underlying pulmonary embolism. However, the patient will be ruled out for any underlying ACS. Serial troponins will be obtained. A 2D echocardiogram will be obtained. 3. Type 2 diabetes mellitus. The patient will be started on sliding scale insulin along with basal insulin and Lantus insulin. A hemoglobin A1c will be obtained to evaluate the blood glucose control over the past few weeks. THE PATIENT IS ALLERGIC TO METFORMIN AND SITAGLIPTIN. 4. Diabetic neuropathy. The patient will be continued on gabapentin. 5. Asthma. The patient will be started on inhaled bronchodilators PRN. She has no evidence of any asthma exacerbation. 6. Conjunctivitis. The patient will be started on otic antibiotics. Plan. The patient will be admitted to inpatient setting. The patient will be started on a carbohydrate controlled diet. The patient will be started on therapeutic Lovenox. The patient will be started on gastrointestinal prophylaxis. The patient will remain a FULL CODE. The rest of the patient's management will be based on clinical course, the results of diagnostic studies, and input from consultants. Based on the patient's clinical presentation, she most probably requires at least 2 midnights' stay for further management and evaluation of her clinical presentation. The case and management of this patient was fully discussed with Dr. Taylor. VANDANA TAYLOR MD, AM/VINCENT Conf#: [id number] DID#: [id number] MTDLeobardo
[2017-04-04 17:49] VITALS: TEMP 99.4
[2017-04-04] MEDS: INSULIN ASPART [NOVOLOG] 3 ML PEN SC SCH ×3 (18:00→21:00)
[2017-04-04 18:37] VITALS: Ht 167.6 cm; Wt 72.7 kg
[2017-04-04 18:48] VITALS: BP 118/65; PULSE 93; RESP 20
[2017-04-04] MEDS: CIPROFLOXACIN 0.3% 2.5 ML OPH BOTH EYES SCH ×4 (19:00→23:00)
--- NOTE | 2017-04-04 19:37 | CONS ---
Date/Time of Note Date/Time of Note DATE: 04/04/17 TIME: 19:32 Assessment/Plan Assessment/Plan Chief Complaint/Hosp Course The patient is a 51-year-old female with past medical history of pulmonary embolism treated with coumadin for > 6 months, with recurrent bilateral pulmonary embolism while off coumadin after running out of medication two weeks ago. 1. Pulmonary embolism, bilateral, recurrent. Her first PE was unprovoked and in itself would have likely warranted lifelong anticoagulation. Given that she has had recurrent unprovoked PEs with her first clot treated with > 6 months of anticoagulation with recurrence with a few weeks of stopping coumadin, she would warrant lifelong anticoagulation regardless of hypercoagulable work-up. -.A hypercoagulable workup including protein C, protein S, lupus anticoagulant, and antithrombin III was ordered, will add beta2 glycoprotein IgM and IgG and anticardiolipin IgM and IgG - If patient found to be negative for antiphospholipid antibody syndrome, could switch to one of the new oral anticoaulgants such as eliquis or xarelto. Will request auth for xarelto or eliquis. - will check D-dimer as a baseline - Patient started on therapeutic lovenox - LE dopplers negative - Will request case management to obtain auth for pt to follow up with me upon discharge 2. History of right ovarian cyst, no exchange underwriting consultant 5+ years per patient, will check CA 125 and US pelvis to ensure not provoking factor for PE though less likely given chronicity over 5 years Problems: Consultation Date/Type/Reason Admit Date/Time April 04, 2017 at 12:47 Date of Consultation: April 04, 2017 Type of Consultation: Hematolology Hx of Present Illness The patient is a 51-year-old female with past medical history of pulmonary embolism on Coumadin, type 2 diabetes mellitus, diabetic neuropathy , asthma, and diabetic gastroparesis who went to the local emergency room because of redness and crusting of her eyes, as well as an increase in shortness of breath along with persistent left chest pleuritic pain as well as numbness/pain of left arm. She states that she was initially diagnosed with multiple PE over 6 months ago and was treated with lovenox/coumadin for > 6 months. She denies any provoking factors at that time, no surgeries, no smoking , no hormone replacement or OCP, no immobility, no long car or plane rides, no known history of cancer. She states that she was told that she would likely need lifelong anticoagulation. She was taking 5 mg of coumadin daily and was supposed to have INR checks via home health, but states that no one ever came back and she did not have INR checks during the time she was on coumadin. She states that she ran out of coumadin a few weeks ago. In the emergency room at [facility], the patient underwent a CT angiogram of the chest that showed multiple acute to subacute/chronic bilateral lower lobe pulmonary emboli involving the lower lobes and upper lobes bilaterally extending to subsegmental level and associated with flattening of the intraventricular septum. Hence, the patient was started on a heparin drip, and the patient was transferred to [facility] for further evaluation because of insurance reasons. Past Medical History 1. Pulmonary embolism. 2. Type 2 diabetes 3. Diabetic neuropathy. 4. Asthma. 5. Gastroparesis. 6. Anemia. 7. Right ovarian cyst without exchange underwriting consultant 5+ years per patient Past Surgical History Family History Significant Family History: no pertinent family hx Social History The patient lives at home with her family. Denies any use of tobacco, alcohol, or illicit drugs. Currently unemployed. Smoking Status: Never smoker Exam/Review of Systems Vital Signs Vitals Vital Signs Date Time Temp Pulse Resp B/P Pulse Ox O2 Delivery O2 Flow Rate FiO2 04/04/17 18:48 99.8 93 20 118/65 99 Nasal Cannula 2.0 Exam Constitutional: alert, oriented Head: normocephalic Neck: supple Respiratory: clear to auscultation Cardiovascular: regular rate and rhythm Gastrointestinal: non-tender, soft Musculoskeletal: nl extremities to inspection Neurological: CORRECTIONS CORPORAL II-XII intact Results Results 24 hrs Laboratory Tests Test 04/04/17 19:20 Bedside Glucose 147 Medications Medications Current Medications Ondansetron HCl (Zofran Inj) 4 mg Q6H PRN IV NAUSEA AND/OR VOMITING; Start 04/04 at 16:00 Acetaminophen (Tylenol Tab) 650 mg Q6H PRN PO PAIN LEVEL 1-3 OR FEVER; Start at 16:00 Acetaminophen/ Hydrocodone Bitart ([place] (5/325)) 1 tab Q6H PRN PO MODERATE PAIN LEVEL 4-6; Start 04/04/17 at 16:00 Morphine Sulfate (morphine) 2 mg Q4H PRN IV SEVERE PAIN LEVEL 7-10; Start at 16:00 Magnesium Hydroxide (Milk Of Mag) 30 ml DAILY PRN PO CONSTIPATION; Start at 16:00 Bisacodyl (Dulcolax) 5 mg DAILY PRN PO CONSTIPATION; Start 04/04/17 at 16:00 Famotidine (Pepcid) 20 mg Q12 PO ; Start 04/04/17 at 21:00 Enoxaparin Sodium (Lovenox) 75 mg Q12 SC ; Start 04/04/17 at 21:00 Ciprofloxacin HCl (Ciloxan 0.3% Oph) 1 drop Q2 BOTH EYES ; Start 04/04/17 at 17: 00 Hydralazine HCl (Apresoline) 10 mg Q6H PRN IV SBP>160; Start 04/04/17 at 16:00 Insulin Glargine (Lantus) 22 unit DAILY@20 SC ; Start 04/04/17 at 20:00 Gabapentin (Neurontin) 600 mg QHS PO ; Start 04/04/17 at 21:00 Miscellaneous Information 1 ea NOTE XX ; Start 04/04/17 at 17:00 Glucose (Glutose) 15 gm Q15M PRN PO DECREASED GLUCOSE; Start 04/04/17 at 17:00 Glucose (Glutose) 22.5 gm Q15M PRN PO DECREASED GLUCOSE; Start 04/04/17 at 17:00 Dextrose (D50w Syringe) 25 ml Q15M PRN IV DECREASED GLUCOSE; Start 04/04/17 at 17:00 Dextrose (D50w Syringe) 50 ml Q15M PRN IV DECREASED GLUCOSE; Start 04/04/17 at 17:00 Glucagon (Glucagen) 1 mg Q15M PRN IM DECREASED GLUCOSE; Start 04/04/17 at 17:00 Glucose (Glutose) 15 gm Q15M PRN BUCCAL DECREASED GLUCOSE; Start 04/04/17 at 17: 00 ALVINO CRUZ MD April 04, 2017 19:37
--- NOTE | 2017-04-04 19:42 | RADRPT ---
PROCEDURE: US DVT. CLINICAL INDICATION: Bilateral lower extremity pain and swelling. TECHNIQUE: Multiple longitudinal and transverse images of the bilateral lower extremity veins were obtained with kuhn scale and color Doppler imaging. 2D grayscale measurements with compression, co max Doppler flow, and augmentation was performed. COMPARISON: 12/12/2016 FINDINGS: The bilateral common femoral, superficial femoral and popliteal veins are normally compressible thro ughout. Color flow demonstrates normal filling of the vessel. Normal waveforms are visualized and there is normal response to augmentation. IMPRESSION: 1. No evidence of a deep vein thrombosis involving either lower extremity. RPTAT: HMVK .Maurisio Robertson MD, MD Date Time Electronically viewed and signed by .Maurisio Robertson MD, on 04/04/2017 19:42 .K/
[2017-04-04 20:07] VITALS: PULSE 90
[2017-04-04 20:07] LABS: D-DIMER 682.97 ng/ml (<460)
[2017-04-04 20:37] VITALS: BP 120/73; RESP 20
[2017-04-04 20:48] LABS: ADD SCAN DIFF NO
[2017-04-04 20:49] LABS: BASOPHILS % 0.3 % (0.0-2.0); EOSINOPHILS # 0.1 10^3/ul (0.0-0.5); EOSINOPHILS % 1.5 % (0.0-7.0); HEMATOCRIT 35.4 % (37.0-47.0); HEMOGLOBIN 11.2 g/dl (12.0-16.0); LYMPHOCYTES % 34.5 % (15.0-51.0); MEAN CORPUSCULAR HEMOGLOBIN 23.8 pg (29.0-33.0); MEAN CORPUSCULAR HGB CONC 31.6 g/dl (32.0-37.0); MEAN CORPUSCULAR VOLUME 75.2 fl (82.0-101.0); MEAN PLATELET VOLUME 10.1 fl (7.4-10.4); MONOCYTE # 0.6 10^3/ul (0.3-0.9); MONOCYTES % 10.4 % (0.0-11.0); NEUTROPHIL # 3.1 10^3/ul (1.6-7.5); NEUTROPHILS % 52.8 % (39.0-77.0); PLATELET COUNT 214 10^3/UL (140-415); RED BLOOD COUNT 4.71 10^6/ul (4.20-5.40); RED CELL DISTRIBUTION WIDTH 14.2 % (11.5-14.5); WHITE BLOOD COUNT 5.9 10^3/ul (4.8-10.8)
[2017-04-04 21:11] LABS: INR 0.99; PROTIME 13.1 Sec (12.2-14.2)
[2017-04-04 21:12] LABS: PARTIAL THROMBOPLASTIN TIME 32.3 Sec (25.0-35.0)
[2017-04-04 21:13] LABS: ALANINE AMINOTRANSFERASE 28 IU/L (13-69); ALBUMIN 3.5 g/dl (3.3-4.9); ALBUMIN/GLOBULIN RATIO 0.85; ALKALINE PHOSPHATASE 102 IU/L (42-121); ANION GAP 10 (8-16); ASPARTATE AMINO TRANSFERASE 19 IU/L (15-46); BILIRUBIN,INDIRECT 0.3 mg/dl (0-1.1); BILIRUBIN,TOTAL 0.3 mg/dl (0.2-1.3); BLOOD UREA NITROGEN 6 mg/dl (7-20); CALCIUM 8.6 mg/dl (8.4-10.2); CARBON DIOXIDE 27 mmol/L (21-31); CHLORIDE 101 mmol/L (97-110); CREATINE KINASE 36 IU/L (23-200); CREATININE 0.53 mg/dl (0.44-1.00); GLUCOSE 155 mg/dl (70-220); POTASSIUM 3.5 mmol/L (3.5-5.1); SODIUM 134 mmol/L (135-144); TOTAL PROTEIN 7.6 g/dl (6.1-8.1)
[2017-04-04] MEDS: morphine 2 MG INJ IV PRN (21:33)
[2017-04-04 21:36] LABS: CK-MB < 0.22 ng/ml (0.0-2.4); TROPONIN-I < 0.012 ng/ml (0.00-0.12)
[2017-04-04] MEDS: FAMOTIDINE 20 MG TAB PO SCH (21:38)
[2017-04-04] MEDS: GABAPENTIN 300 MG CAP PO SCH (21:38)
[2017-04-04 21:44] LABS: THYROID STIMULATING HORMONE 0.787 MIU/L (0.465-4.680)
[2017-04-04] MEDS: ENOXAPARIN 80 MG/0.8 ML SYG SC SCH (21:56)
[2017-04-04] MEDS: INSULIN GLARGINE [LANtus] 3 ML PEN SC SCH (21:57)
[2017-04-04 23:56] VITALS: BP 121/77; RESP 16
[2017-04-05] VITALS (12 sets, daily range): BP systolic 102–116; BP diastolic 58–69; PULSE 72–90; RESP 18–20
[2017-04-05] MEDS: CIPROFLOXACIN 0.3% 2.5 ML OPH BOTH EYES SCH ×12 (01:00→23:00)
[2017-04-05 06:53] LABS: ADD SCAN DIFF NO
[2017-04-05 07:00] LABS: BASOPHILS % 0.6 % (0.0-2.0); EOSINOPHILS # 0.1 10^3/ul (0.0-0.5); EOSINOPHILS % 1.5 % (0.0-7.0); HEMATOCRIT 36.4 % (37.0-47.0); HEMOGLOBIN 11.5 g/dl (12.0-16.0); LYMPHOCYTES % 37.6 % (15.0-51.0); MEAN CORPUSCULAR HEMOGLOBIN 23.9 pg (29.0-33.0); MEAN CORPUSCULAR HGB CONC 31.6 g/dl (32.0-37.0); MEAN CORPUSCULAR VOLUME 75.5 fl (82.0-101.0); MEAN PLATELET VOLUME 10.4 fl (7.4-10.4); MONOCYTE # 0.6 10^3/ul (0.3-0.9); NEUTROPHIL # 2.5 10^3/ul (1.6-7.5); NEUTROPHILS % 47.7 % (39.0-77.0); PLATELET COUNT 211 10^3/UL (140-415); RED BLOOD COUNT 4.82 10^6/ul (4.20-5.40); RED CELL DISTRIBUTION WIDTH 14.4 % (11.5-14.5); WHITE BLOOD COUNT 5.2 10^3/ul (4.8-10.8)
[2017-04-05 07:19] LABS: CHOLESTEROL 130 mg/dl (100-200)
[2017-04-05 07:20] LABS: CHOL/HDL RATIO 3.8 RATIO; HDL CHOLESTEROL 34 mg/dl (37-92); MAGNESIUM 1.9 mg/dl (1.7-2.5); PHOSPHORUS 3.4 mg/dl (2.5-4.9); TRIGLYCERIDES 112 mg/dl (0-149)
[2017-04-05 07:35] LABS: TROPONIN-I < 0.012 ng/ml (0.00-0.12)
[2017-04-05 07:38] LABS: CALCIUM 8.6 mg/dl (8.4-10.2); CREATININE 0.58 mg/dl (0.44-1.00); POTASSIUM 3.4 mmol/L (3.5-5.1)
[2017-04-05] MEDS: FAMOTIDINE 20 MG TAB PO SCH ×2 (08:41→20:35)
[2017-04-05] MEDS: INSULIN ASPART [NOVOLOG] 3 ML PEN SC SCH ×7 (08:47→20:45)
[2017-04-05] MEDS: ENOXAPARIN 80 MG/0.8 ML SYG SC SCH ×2 (08:48→20:54)
--- NOTE | 2017-04-05 09:08 | RADRPT ---
PROCEDURE: Bilateral lower extremity arterial ultrasound CLINICAL INDICATION: Lower extremity pain and claudication TECHNIQUE: Staples-scale and color images with doppler of the lower extremities were obtained COMPARISON: None available FINDINGS: Antegrade flow is noted in all visulaized arteries of the lower extremities. Biphasic and triphasic waveforms are seen throughout both lower extremities. Rt BRAILLE CODER 187 cm/s Rt Prox SFA 106 cm/s Rt Mid SFA 87 cm/s Rt Dist SFA 85 cm/s Rt Eloisa 82 cm/s Rt Post Tibial 79 cm/s Rt Dorsalis Pedis 45 cm/s Rt SHAI 0.8 Lt BRAILLE CODER 140 cm/s Lt Prox SFA 115 cm/s Lt Mid SFA 93 cm/s Lt Dist SFA 74 cm/s Lt Eloisa 61 cm/s Lt Post Tibial 47 cm/s Lt Dorsalis Pedis 65 cm/s Lt SHAI 0.9 IMPRESSION: Elevated velocity in the right common femoral artery, possibly indicating a 30 - 49% stenosis. If further characterization of the arterial vasculature is needed CTA is recommended. RPTAT: AA .Chacho Shepard MD, MD Date Time Electronically viewed and signed by .Chacho Shepard MD, on 04/05/2017 09:07 .P/
[2017-04-05 09:26] LABS: ADD UMIC YES; URINE BILIRUBIN (Dip) NEGATIVE (NEGATIVE); URINE BLOOD (Dip) NEGATIVE (NEGATIVE); URINE COLOR LT. YELLOW (YELLOW); URINE KETONES (Dip) NEGATIVE (NEGATIVE); URINE LEUKOCYTE ESTERASE (Dip) TRACE (NEGATIVE); URINE NITRITE (Dip) NEGATIVE (NEGATIVE); URINE TOTAL PROTEIN (Dip) NEGATIVE (NEGATIVE); URINE UROBILINOGEN (Dip) 0.2 E.U./dL (0.1-1.0)
[2017-04-05 09:51] LABS: BARBITURATES Negative (NEGATIVE); BENZODIAZEPINES Negative (NEGATIVE); CANNABINOIDS Negative (NEGATIVE); COCAINE Negative (NEGATIVE); OPIATES Positive (NEGATIVE)
[2017-04-05 09:59] LABS: BACTERIA,URINE MANY; SQUAMOUS EPITHELIAL CELL,UR MANY; URINE RBCS 0-2 /HPF (0)
[2017-04-05] MEDS: ACETAMINOPHEN 325 MG TAB PO PRN (10:59)
--- NOTE | 2017-04-05 11:45 | PN ---
Date/Time of Note Date/Time of Note DATE: 04/05/17 TIME: 11:39 Assessment/Plan VTE Prophylaxis VTE Prophylaxis Intervention: LMWH Lines/Catheters IV [facility] ([facility] Peripheral IV Assessment/Plan Chief Complaint/Hosp Course 1. Bilateral pulmonary embolism, recurrent. The patient on therapeutic anticoagulation. Being followed by hematology. Being evaluated for hypercoagulable state. Bilateral lower extremity venous Doppler study negative for any DVT. 2. Chest pain. The chest pain could be most probably secondary to underlying pulmonary embolism. However, the patient will be ruled out for any underlying ACS. Serial troponins negative so far. 2D echocardiogram pending. 3. Type 2 diabetes mellitus. The patient will be continued on sliding scale insulin along with basal insulin and Lantus insulin. Hemoglobin A1c 12.1. 4. Diabetic neuropathy. The patient will be continued on gabapentin. 5. Asthma. No evidence of any exacerbation. Continue as needed inhaled bronchodilators. 6. Right common femoral artery stenosis with the possible 30-49% stenosis as per Doppler study. Will involve vascular surgery on the case. 7. Microcytic, hypochromic anemia. Will monitor the H&H closely. Will obtain an iron panel. 8. Fluids, electrolytes, and nutrition. Carbohydrate controlled diet. 9. DVT prophylaxis. On therapeutic anticoagulation. 10. Gastrointestinal prophylaxis. Histamine 2 receptor blockers. 11. Plan. Replete potassium. Continue therapeutic anticoagulation. Obtain vascular surgery consult. Await further recommendations from consultants. Case discussed with Dr. Erickson. Problems: Subjective 24 Hr Interval Summary Free Text/Dictation Complains of back pain. Exam/Review of Systems Vital Signs Vitals Vital Signs Date Time Temp Pulse Resp B/P Pulse Ox O2 Delivery O2 Flow Rate FiO2 04/05/17 08:24 87 04/05/17 07:51 98.4 18 110/58 98 04/05/17 06:25 2.0 04/04/17 20:00 Nasal Cannula Exam GENERAL: The patient is an female lying in bed in no apparent distress. HEENT: Head normocephalic and atraumatic. Eyes: Anicteric. Sclerae are red and inflamed with tearing of eyes, right greater than left. ENT: Nasal septum is midline. Oral mucosa is dry. NECK: Supple. No JVD noticed. RESPIRATORY: Bilaterally clear to auscultation. No adventitious breath sounds. No use of accessory muscles of respiration. CARDIAC: Regular rate and rhythm. GASTROINTESTINAL: S1, S2 heard. ABDOMEN: Soft, nontender, and nondistended. Bowel sounds positive in all 4 quadrants. GENITOURINARY: Deferred. EXTREMITIES: No cyanosis. No clubbing. No calf tenderness. Bilateral dorsalis pedis pulses 1+. NEUROLOGIC: The patient is awake, alert. Nerves are grossly intact. Results Result Diagram: 04/05/17 0605 04/05/17 0605 Results 24 hrs Laboratory Tests Test 04/04/17 19:00 04/04/17 19:20 04/04/17 20:20 04/04/17 21:36 D-Dimer 682.97 H D-Dimer Comment Hemoglobin A1c 12.1 H Magnesium Level 1.6 L Vitamin D 1,25-Dihydroxy 14.4 L Bedside Glucose 147 160 White Blood Count 5.9 Red Blood Count 4.71 Hemoglobin 11.2 L Hematocrit 35.4 L Mean Corpuscular Volume 75.2 L Mean Corpuscular Hemoglobin 23.8 L Mean Corpuscular Hemoglobin Concent 31.6 L Red Cell Distribution Width 14.2 Platelet Count 214 Mean Platelet Volume 10.1 Neutrophils % 52.8 Lymphocytes % 34.5 Monocytes % 10.4 Eosinophils % 1.5 Basophils % 0.3 Nucleated Red Blood Cells % 0.0 Neutrophils # 3.1 Lymphocytes # 2.0 Monocytes # 0.6 Eosinophils # 0.1 Basophils # 0.0 Nucleated Red Blood Cells # 0.0 Prothrombin Time 13.1 Prothrombin Time Ratio 1.0 INR International Normalized Ratio 0.99 Activated Partial Thromboplast Time 32.3 Sodium Level 134 L Potassium Level 3.5 Chloride Level 101 Carbon Dioxide Level 27 Anion Gap 10 Blood Urea Nitrogen 6 L Creatinine 0.53 Glucose Level 155 Calcium Level 8.6 Total Bilirubin 0.3 Direct Bilirubin 0.00 Indirect Bilirubin 0.3 Aspartate Amino Transf (AST/SGOT) 19 Alanine Aminotransferase (ALT/SGPT) 28 Alkaline Phosphatase 102 Creatine Kinase 36 Creatine Kinase Index Creatinine Kinase MB (Mass) < 0.22 Troponin I < 0.012 Total Protein 7.6 Albumin 3.5 Globulin 4.10 H Albumin/Globulin Ratio 0.85 Thyroid Stimulating Hormone (TSH) 0.787 Free Thyroxine 1.29 Test 04/05/17 06:00 04/05/17 06:05 04/05/17 07:43 Urine Color LT. YELLOW Urine Clarity SLIGHTLY CLOUDY Urine pH 6.0 Urine Specific Clements 1.025 Urine Ketones NEGATIVE Urine Nitrite NEGATIVE Urine Bilirubin NEGATIVE Urine Urobilinogen 0.2 E.U./dL Urine Leukocyte Esterase TRACE H Urine Microscopic RBC 0-2 Urine Microscopic WBC 5-10 Urine Squamous Epithelial Cells MANY Urine Bacteria MANY Urine Hemoglobin NEGATIVE Urine Glucose 0.5% H Urine Total Protein NEGATIVE Urine Test NEGATIVE Urine Opiates Screen Positive Urine Barbiturates Negative Urine Amphetamines Screen Negative Urine Benzodiazepines Screen Negative Urine Cocaine Screen Negative Urine Cannabinoids Negative White Blood Count 5.2 Red Blood Count 4.82 Hemoglobin 11.5 L Hematocrit 36.4 L Mean Corpuscular Volume 75.5 L Mean Corpuscular Hemoglobin 23.9 L Mean Corpuscular Hemoglobin Concent 31.6 L Red Cell Distribution Width 14.4 Platelet Count 211 Mean Platelet Volume 10.4 Neutrophils % 47.7 Lymphocytes % 37.6 Monocytes % 12.0 H Eosinophils % 1.5 Basophils % 0.6 Nucleated Red Blood Cells % 0.0 Neutrophils # 2.5 Lymphocytes # 2.0 Monocytes # 0.6 Eosinophils # 0.1 Basophils # 0.0 Nucleated Red Blood Cells # 0.0 Sodium Level 137 Potassium Level 3.4 L Chloride Level 103 Carbon Dioxide Level 27 Anion Gap 10 Blood Urea Nitrogen 8 Creatinine 0.58 Glucose Level 155 Calcium Level 8.6 Phosphorus Level 3.4 Magnesium Level 1.9 Troponin I < 0.012 Triglycerides Level 112 Cholesterol Level 130 LDL Cholesterol, Calculated 74 HDL Cholesterol 34 L Cholesterol/HDL Ratio 3.8 CA 125 Antigen 25.8 Bedside Glucose 146 Medications Medications Current Medications Ondansetron HCl (Zofran Inj) 4 mg Q6H PRN IV NAUSEA AND/OR VOMITING; Start 04/04 at 16:00 Acetaminophen (Tylenol Tab) 650 mg Q6H PRN PO PAIN LEVEL 1-3 OR FEVER Last administered on 04/05/17 10:59; Admin Dose 650 MG; Start 04/04/17 at 16:00 Morphine Sulfate (morphine) 2 mg Q4H PRN IV SEVERE PAIN LEVEL 7-10 Last administered on 04/04/17 21:33; Admin Dose 2 MG; Start 04/04/17 at 16:00 Magnesium Hydroxide (Milk Of Mag) 30 ml DAILY PRN PO CONSTIPATION; Start at 16:00 Bisacodyl (Dulcolax) 5 mg DAILY PRN PO CONSTIPATION; Start 04/04/17 at 16:00 Famotidine (Pepcid) 20 mg Q12 PO Last administered on 04/05/17 08:41; Admin Dose 20 MG; Start 04/04/17 at 21:00 Enoxaparin Sodium (Lovenox) 75 mg Q12 SC Last administered on 04/05/17 08:48; Admin Dose 75 MG; Start 04/04/17 at 21:00 Ciprofloxacin HCl (Ciloxan 0.3% Oph) 1 drop Q2 BOTH EYES Last administered on 11:00; Admin Dose 1 DROP; Start 04/04/17 at 17:00 Hydralazine HCl (Apresoline) 10 mg Q6H PRN IV SBP>160; Start 04/04/17 at 16:00 Insulin Glargine (Lantus) 22 unit DAILY@20 SC Last administered on 04/04/17 21: 57; Admin Dose 22 UNIT; Start 04/04/17 at 20:00 Gabapentin (Neurontin) 600 mg QHS PO Last administered on 04/04/17 21:38; Admin Dose 600 MG; Start 04/04/17 at 21:00 Miscellaneous Information 1 ea NOTE XX ; Start 04/04/17 at 17:00 Glucose (Glutose) 15 gm Q15M PRN PO DECREASED GLUCOSE; Start 04/04/17 at 17:00 Glucose (Glutose) 22.5 gm Q15M PRN PO DECREASED GLUCOSE; Start 04/04/17 at 17:00 Dextrose (D50w Syringe) 25 ml Q15M PRN IV DECREASED GLUCOSE; Start 04/04/17 at 17:00 Dextrose (D50w Syringe) 50 ml Q15M PRN IV DECREASED GLUCOSE; Start 04/04/17 at 17:00 Glucagon (Glucagen) 1 mg Q15M PRN IM DECREASED GLUCOSE; Start 04/04/17 at 17:00 Glucose (Glutose) 15 gm Q15M PRN BUCCAL DECREASED GLUCOSE; Start 04/04/17 at 17: 00 Oxycodone/ Acetaminophen (Percocet (5/ 325)) 1 tab Q4H PRN PO PAIN; Start at 12:00; Status VANDANA LAZAR NP April 05, 2017 11:45
[2017-04-05 11:48] LABS: IRON 21 ug/dl (35-150)
[2017-04-05 11:57] LABS: TOTAL IRON BINDING CAPACITY 327 ug/dl (241-421)
[2017-04-05] MEDS ORDERED: POTASSIUM CHLORIDE (SR) 10 MEQ TAB PO ONE (12:00)
[2017-04-05] MEDS: OXYCODONE/ACETAMINOPHEN (5/325) TAB PO PRN (16:47)
--- NOTE | 2017-04-05 19:08 | RADRPT ---
PROCEDURE: US Pelvis. CLINICAL INDICATION: History of right ovarian cyst. TECHNIQUE: The pelvis was evaluated with transabdominal and transvaginal sonography in the axial a nd sagittal planes. COMPARISON: Pelvic ultrasound dated 05/21/2015 FINDINGS: Uterus: 10.7 x 5.5 x 6.4 cm. Endometrium: 13.3 mm. Right ovary: 7.2 x 6.8 x 6.3 cm. Left ovary: 3.2 x 2.2 x 2.4 cm. Uterine masses: None. Ovarian masses: The right ovary is enlarged with a probable hemorrhagic cyst measuring 6.1 x 5.7 x 5 .4 cm. The ovaries are otherwise normal. Color Doppler and pulsed Doppler sonography demonstrate no rmal flow to the ovaries. Other pelvic masses: None. Free fluid: None. IMPRESSION: 1. Enlarged right ovary with a probable hemorrhagic cyst measuring 6.1 x 5.7 x 5.4 cm. Due to the large size, gynecologic consultation is advised. 2. Otherwise unremarkable study. RPTAT: QQ .Ashwin John MD, Date Time Electronically viewed and signed by .Ashwin John MD, on 04/05/2017 19:08 .R/
[2017-04-05] MEDS: GABAPENTIN 300 MG CAP PO SCH (20:35)
[2017-04-05] MEDS: INSULIN GLARGINE [LANtus] 3 ML PEN SC SCH (20:49)
[2017-04-05] MEDS: morphine 2 MG INJ IV PRN (21:12)
[2017-04-06] VITALS (13 sets, daily range): BP systolic 94–121; BP diastolic 54–70; PULSE 73–95; RESP 17–20
[2017-04-06] MEDS: CIPROFLOXACIN 0.3% 2.5 ML OPH BOTH EYES SCH ×9 (01:30→23:00)
[2017-04-06] MEDS: OXYCODONE/ACETAMINOPHEN (5/325) TAB PO PRN (01:44)
[2017-04-06 07:12] LABS: ADD SCAN DIFF NO
[2017-04-06 07:18] LABS: BASOPHILS % 0.2 % (0.0-2.0); EOSINOPHILS # 0.1 10^3/ul (0.0-0.5); EOSINOPHILS % 2.3 % (0.0-7.0); HEMATOCRIT 36.2 % (37.0-47.0); HEMOGLOBIN 11.2 g/dl (12.0-16.0); LYMPHOCYTES % 42.9 % (15.0-51.0); MEAN CORPUSCULAR HEMOGLOBIN 23.9 pg (29.0-33.0); MEAN CORPUSCULAR HGB CONC 30.9 g/dl (32.0-37.0); MEAN CORPUSCULAR VOLUME 77.2 fl (82.0-101.0); MEAN PLATELET VOLUME 10.3 fl (7.4-10.4); MONOCYTE # 0.6 10^3/ul (0.3-0.9); MONOCYTES % 11.8 % (0.0-11.0); NEUTROPHILS % 42.4 % (39.0-77.0); PLATELET COUNT 228 10^3/UL (140-415); RED BLOOD COUNT 4.69 10^6/ul (4.20-5.40); RED CELL DISTRIBUTION WIDTH 14.5 % (11.5-14.5); WHITE BLOOD COUNT 4.8 10^3/ul (4.8-10.8)
[2017-04-06 07:32] LABS: PHOSPHORUS 4.3 mg/dl (2.5-4.9)
[2017-04-06 07:33] LABS: MAGNESIUM 1.7 mg/dl (1.7-2.5)
[2017-04-06 07:37] LABS: POTASSIUM 3.9 mmol/L (3.5-5.1)
[2017-04-06 07:40] LABS: CALCIUM 8.7 mg/dl (8.4-10.2); CREATININE 0.75 mg/dl (0.44-1.00)
[2017-04-06] MEDS: INSULIN ASPART [NOVOLOG] 3 ML PEN SC SCH ×7 (07:47→20:42)
[2017-04-06] MEDS: FAMOTIDINE 20 MG TAB PO SCH ×2 (09:09→20:35)
[2017-04-06] MEDS: ENOXAPARIN 80 MG/0.8 ML SYG SC SCH ×2 (09:10→20:42)
--- NOTE | 2017-04-06 11:14 | PN ---
Date/Time of Note Date/Time of Note DATE: 04/06/17 TIME: 11:09 Assessment/Plan VTE Prophylaxis VTE Prophylaxis Intervention: LMWH Lines/Catheters IV [facility] ([facility] Saline Lock Assessment/Plan Chief Complaint/Hosp Course 1. Bilateral pulmonary embolism, recurrent. The patient on therapeutic anticoagulation. Being followed by hematology. Being evaluated for hypercoagulable state. Bilateral lower extremity venous Doppler study negative for any DVT. 2. Chest pain. The chest pain could be most probably secondary to underlying pulmonary embolism. However, the patient will be ruled out for any underlying ACS. Serial troponins negative so far. 2D echocardiogram pending. 3. Type 2 diabetes mellitus. The patient will be continued on sliding scale insulin along with basal insulin and Lantus insulin. Hemoglobin A1c 12.1. 4. Diabetic neuropathy. The patient will be continued on gabapentin. 5. Asthma. No evidence of any exacerbation. Continue as needed inhaled bronchodilators. 6. Right common femoral artery stenosis with the possible 30-49% stenosis as per Doppler study. Vascular surgery on the case. 7. Microcytic, hypochromic anemia. Will monitor the H&H closely. Iron panel showing iron deficiency. Will start iron supplements. 8. Right ovarian cyst. 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 9. Fluids, electrolytes, and nutrition. Carbohydrate controlled diet. 10. DVT prophylaxis. On therapeutic anticoagulation. 11. Gastrointestinal prophylaxis. Histamine 2 receptor blockers. 12. Plan. Continue therapeutic anticoagulation. Await further recommendations from consultants. Start iron supplements. Case discussed with Dr. Erickson. Problems: Subjective 24 Hr Interval Summary Free Text/Dictation Complains of back pain. Exam/Review of Systems Vital Signs Vitals Vital Signs Date Time Temp Pulse Resp B/P Pulse Ox O2 Delivery O2 Flow Rate FiO2 04/06/17 08:19 73 04/06/17 08:00 Nasal Cannula 2.0 04/06/17 07:43 98.2 19 114/67 96 Intake and Output 04/05/17 04/05/17 04/06/17 15:00 23:00 07:00 Intake Total 1140 ml 120 ml Balance 1140 ml 120 ml Exam GENERAL: The patient is an female lying in bed in no apparent distress. HEENT: Head normocephalic and atraumatic. Eyes: Anicteric. Sclerae are red and inflamed with tearing of eyes, right greater than left (improved). ENT: Nasal septum is midline. Oral mucosa is dry. NECK: Supple. No JVD noticed. RESPIRATORY: Bilaterally clear to auscultation. No adventitious breath sounds. No use of accessory muscles of respiration. CARDIAC: Regular rate and rhythm. GASTROINTESTINAL: S1, S2 heard. ABDOMEN: Soft, nontender, and nondistended. Bowel sounds positive in all 4 quadrants. GENITOURINARY: Deferred. EXTREMITIES: No cyanosis. No clubbing. No calf tenderness. Bilateral dorsalis pedis pulses 1+. NEUROLOGIC: The patient is awake, alert. Cranial nerves are grossly intact. Results Result Diagram: 04/06/17 0550 04/06/17 0550 Results 24 hrs Laboratory Tests Test 04/05/17 12:59 04/05/17 17:37 04/05/17 20:45 04/06/17 05:50 Bedside Glucose 85 162 141 White Blood Count 4.8 Red Blood Count 4.69 Hemoglobin 11.2 L Hematocrit 36.2 L Mean Corpuscular Volume 77.2 L Mean Corpuscular Hemoglobin 23.9 L Mean Corpuscular Hemoglobin Concent 30.9 L Red Cell Distribution Width 14.5 Platelet Count 228 Mean Platelet Volume 10.3 Neutrophils % 42.4 Lymphocytes % 42.9 Monocytes % 11.8 H Eosinophils % 2.3 Basophils % 0.2 Nucleated Red Blood Cells % 0.0 Neutrophils # 2.0 Lymphocytes # 2.0 Monocytes # 0.6 Eosinophils # 0.1 Basophils # 0.0 Nucleated Red Blood Cells # 0.0 Sodium Level 138 Potassium Level 3.9 Chloride Level 103 Carbon Dioxide Level 26 Anion Gap 13 Blood Urea Nitrogen 15 Creatinine 0.75 Glucose Level 299 #H Calcium Level 8.7 Phosphorus Level 4.3 Magnesium Level 1.7 Test 04/06/17 07:42 Bedside Glucose 254 H Medications Medications Current Medications Ondansetron HCl (Zofran Inj) 4 mg Q6H PRN IV NAUSEA AND/OR VOMITING; Start 04/04 at 16:00 Acetaminophen (Tylenol Tab) 650 mg Q6H PRN PO PAIN LEVEL 1-3 OR FEVER Last administered on 04/05/17 10:59; Admin Dose 650 MG; Start 04/04/17 at 16:00 Morphine Sulfate (morphine) 2 mg Q4H PRN IV SEVERE PAIN LEVEL 7-10 Last administered on 04/05/17 21:12; Admin Dose 2 MG; Start 04/04/17 at 16:00 Magnesium Hydroxide (Milk Of Mag) 30 ml DAILY PRN PO CONSTIPATION; Start at 16:00 Bisacodyl (Dulcolax) 5 mg DAILY PRN PO CONSTIPATION; Start 04/04/17 at 16:00 Famotidine (Pepcid) 20 mg Q12 PO Last administered on 04/06/17 09:09; Admin Dose 20 MG; Start 04/04/17 at 21:00 Enoxaparin Sodium (Lovenox) 75 mg Q12 SC Last administered on 04/06/17 09:10; Admin Dose 75 MG; Start 04/04/17 at 21:00 Ciprofloxacin HCl (Ciloxan 0.3% Oph) 1 drop Q2 BOTH EYES Last administered on 09:09; Admin Dose 1 DROP; Start 04/04/17 at 17:00 Hydralazine HCl (Apresoline) 10 mg Q6H PRN IV SBP>160; Start 04/04/17 at 16:00 Insulin Glargine (Lantus) 22 unit DAILY@20 SC Last administered on 04/05/17 20: 49; Admin Dose 22 UNIT; Start 04/04/17 at 20:00 Gabapentin (Neurontin) 600 mg QHS PO Last administered on 04/05/17 20:35; Admin Dose 600 MG; Start 04/04/17 at 21:00 Miscellaneous Information 1 ea NOTE XX ; Start 04/04/17 at 17:00 Glucose (Glutose) 15 gm Q15M PRN PO DECREASED GLUCOSE; Start 04/04/17 at 17:00 Glucose (Glutose) 22.5 gm Q15M PRN PO DECREASED GLUCOSE; Start 04/04/17 at 17:00 Dextrose (D50w Syringe) 25 ml Q15M PRN IV DECREASED GLUCOSE; Start 04/04/17 at 17:00 Dextrose (D50w Syringe) 50 ml Q15M PRN IV DECREASED GLUCOSE; Start 04/04/17 at 17:00 Glucagon (Glucagen) 1 mg Q15M PRN IM DECREASED GLUCOSE; Start 04/04/17 at 17:00 Glucose (Glutose) 15 gm Q15M PRN BUCCAL DECREASED GLUCOSE; Start 04/04/17 at 17: 00 Oxycodone/ Acetaminophen (Percocet (5/ 325)) 1 tab Q4H PRN PO PAIN Last administered on 04/06/17t 01:44; Admin Dose 1 TAB; Start 04/05/17 at 12:00 VANDANA DICKEY NP April 06, 2017 11:14
[2017-04-06] MEDS: SOD FERRIC GLUC COMPLX 125 MG in SOD CHLORIDE 0.9% 100 ML IVPB SCH (14:30)
--- NOTE | 2017-04-06 15:56 | RADRPT ---
Echocardiogram Report Patient Name: SEPIDEH ARCEO Gender: Female Date: 1965 Study Date: 05-Apr-2017 Transfer Driver: MELISSA [facility] Location: [id number] Ref. Physician: VANDANA DICKEY Quality: Adequate Procedures: Transthoracic echocardiogram with complete 2D, M-Mode, and doppler examination. Indications: Chest Pain. 2D/M Mode Doppler Measurement Value Normal Ranges Measurement Value Normal Ranges AoR Diam MM 1.4 cm AV Peak Sohail 1.1 m/sec LA/Ao MM 2.3 AV Peak PG 5.0 mmHg LA Dimen MM 3.2 cm LVOT Peak Sohail 1.1 m/sec LVIDd 2D 3.7 3.5 - 5.6 cm LVOT Peak PG 5.1 mmHg LVIDs 2D 2.5 2.1 - 4.1 cm MV E Peak Sohail 1.0 m/sec LVPWd 2D 1.0 0.6 - 1.1 cm MV A Peak Sohail 0.9 m/sec IVSd 2D 1.3 0.6 - 1.1 cm MV E/A 1.1 AoR Diam 2D 2.4 2.0 - 3.7 cm MV Decel Time 157 msec EDV 2D 57.4 cm3 MV Decel [place] 6 ESV 2D 16.1 cm3 MV E/A 1.1 LA Dimen 2D 3.2 2.3 - 4.0 cm Findings Left Ventricle: Normal left ventricular systolic function. Normal left ventricular cavity size. Normal left ventricular wall thickness. Ejection fraction is visually estimated at 65 %. Right Ventricle: Normal right ventricular size. Normal right ventricular systolic function. Left Atrium: The left atrium is normal in size. LA Dimension3.20 cm. Right Atrium: The right atrium is normal in size. Mitral Valve: Normal appearance and function of the mitral valve with trace physiologic regurgitation. Aortic Valve: Normal appearance of the aortic valve. No significant aortic stenosis or insufficiency. Tricuspid Valve: Normal appearance and function of the tricuspid valve with trace physiologic regurgitation. Pulmonic Valve: There is trace pulmonic regurgitation. Pericardium: Normal pericardium with no significant pericardial effusion. Aorta: Normal aortic root. IVC: Normal size and normal respiratory collapse consistent with normal right atrial pressure. Dilated inferior vena cava with poor inspiratory collapse consistent with elevated right atrial pressures. Conclusions 1.Normal left ventricular systolic function. Normal left ventricular cavity size. Normal left ventricular wall thickness. Ejection fraction is visually estimated at 65 %. 2.Normal right ventricular size. Normal right ventricular systolic function. 3.The left atrium is normal in size. LA Dimension3.20 cm. 4.The right atrium is normal in size. 5.No significant valvular stenosis or regurgitation seen. 6.Normal pericardium with no significant pericardial effusion. Electronically Signed By: Maurisio Arciniega 06-Apr-2017 15:55:52 -0700 Patient Name: SEPIDEH ARCEO Study Date: 05-Apr-2017 [id number]
[2017-04-06] MEDS: GABAPENTIN 300 MG CAP PO SCH (20:35)
[2017-04-06] MEDS: INSULIN GLARGINE [LANtus] 3 ML PEN SC SCH (20:43)
[2017-04-07] VITALS (12 sets, daily range): BP systolic 91–118; BP diastolic 59–75; PULSE 78–110; RESP 16–20
[2017-04-07] MEDS: CIPROFLOXACIN 0.3% 2.5 ML OPH BOTH EYES SCH ×6 (02:04→23:00)
[2017-04-07] MEDS: morphine 2 MG INJ IV PRN (02:05)
[2017-04-07 07:27] LABS: ADD SCAN DIFF NO
[2017-04-07 07:36] LABS: BASOPHILS % 0.4 % (0.0-2.0); EOSINOPHILS # 0.1 10^3/ul (0.0-0.5); EOSINOPHILS % 2.7 % (0.0-7.0); HEMATOCRIT 37.2 % (37.0-47.0); HEMOGLOBIN 11.6 g/dl (12.0-16.0); LYMPHOCYTES # 2.1 10^3/ul (0.8-2.9); LYMPHOCYTES % 39.7 % (15.0-51.0); MEAN CORPUSCULAR HEMOGLOBIN 23.8 pg (29.0-33.0); MEAN CORPUSCULAR HGB CONC 31.2 g/dl (32.0-37.0); MEAN CORPUSCULAR VOLUME 76.4 fl (82.0-101.0); MEAN PLATELET VOLUME 10.6 fl (7.4-10.4); MONOCYTE # 0.4 10^3/ul (0.3-0.9); MONOCYTES % 8.1 % (0.0-11.0); NEUTROPHIL # 2.5 10^3/ul (1.6-7.5); NEUTROPHILS % 48.5 % (39.0-77.0); PLATELET COUNT 251 10^3/UL (140-415); RED BLOOD COUNT 4.87 10^6/ul (4.20-5.40); RED CELL DISTRIBUTION WIDTH 14.3 % (11.5-14.5); WHITE BLOOD COUNT 5.2 10^3/ul (4.8-10.8)
[2017-04-07 07:55] LABS: MAGNESIUM 1.6 mg/dl (1.7-2.5); PHOSPHORUS 3.7 mg/dl (2.5-4.9); POTASSIUM 3.7 mmol/L (3.5-5.1)
[2017-04-07 07:58] LABS: CREATININE 0.6 mg/dl (0.44-1.00)
[2017-04-07 07:59] LABS: CALCIUM 8.6 mg/dl (8.4-10.2)
[2017-04-07] MEDS: INSULIN ASPART [NOVOLOG] 3 ML PEN SC SCH ×7 (08:00→20:29)
[2017-04-07] MEDS: FAMOTIDINE 20 MG TAB PO SCH ×2 (08:06→20:22)
[2017-04-07] MEDS: ENOXAPARIN 80 MG/0.8 ML SYG SC SCH ×2 (08:11→20:24)
--- NOTE | 2017-04-07 13:26 | PN ---
Date/Time of Note Date/Time of Note DATE: 04/07/17 TIME: 13:24 Assessment/Plan VTE Prophylaxis VTE Prophylaxis Intervention: LMWH Lines/Catheters IV [facility]ter Type (from [facility]): Saline Lock Assessment/Plan Chief Complaint/Hosp Course Assessment and plan 1. Bilateral pulmonary embolism recurrent. Patient on therapeutic dose of Lovenox. Continue. Hematology following. Follow-up hypercoagulable study. Of note patient did have bilateral lower extremity Doppler negative for any DVT 2. Chest pain secondary to #1. Continue with analgesics. So troponins negative. echo did show preserved ejection fraction with EF at 65%. 3. Type 2 diabetes. Continue insulin regimen. A1c was noted at 12.1. 4. Diabetic neuropathy. Continue Neurontin 5. Asthma. No active bronchospasm at this time. Continue on bronchodilators as needed 6. Right common femoral stenosis of 30-49%. Vascular surgeon to follow. Will follow up with recommendations. 7. Iron deficiency anemia. Continue iron supplement. 8. Reported right ovarian cyst. 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 Disposition and plan: Continue anticoagulation. Await vascular surgeon recommendations. Discharge when medically stable and cleared by consultants Discussed plan of care with Dr. Spears Problems: Subjective 24 Hr Interval Summary Free Text/Dictation Comfortable at present. Does report having some cough. Does also have some shortness of breath Exam/Review of Systems Vital Signs Vitals Vital Signs Date Time Temp Pulse Resp B/P Pulse Ox O2 Delivery O2 Flow Rate FiO2 04/07/17 12:15 89 04/07/17 11:55 97.6 18 106/68 98 04/07/17 07:43 Nasal Cannula 1.0 Intake and Output 04/06/17 04/06/17 04/07/17 15:00 23:00 07:00 Intake Total 800 ml 360 ml Balance 800 ml 360 ml Exam Constitutional: alert, oriented Psych: nl mood/affect Head: normocephalic Eyes: nl conjunctiva Neck: non-tender, supple Respiratory: normal air movement Cardiovascular: regular rate and rhythm Gastrointestinal: non-tender, soft Musculoskeletal: nl extremities to inspection Extremities: normal pulses Neurological: STICK WELDER II-XII intact, nl mental status, nl speech Results Result Diagram: 04/07/17 0603 04/07/17 0603 Results 24 hrs Laboratory Tests Test 04/06/17 17:09 04/06/17 20:34 04/07/17 06:03 04/07/17 07:38 Bedside Glucose 192 139 189 White Blood Count 5.2 Red Blood Count 4.87 Hemoglobin 11.6 L Hematocrit 37.2 Mean Corpuscular Volume 76.4 L Mean Corpuscular Hemoglobin 23.8 L Mean Corpuscular Hemoglobin Concent 31.2 L Red Cell Distribution Width 14.3 Platelet Count 251 Mean Platelet Volume 10.6 H Neutrophils % 48.5 Lymphocytes % 39.7 Monocytes % 8.1 Eosinophils % 2.7 Basophils % 0.4 Nucleated Red Blood Cells % 0.0 Neutrophils # 2.5 Lymphocytes # 2.1 Monocytes # 0.4 Eosinophils # 0.1 Basophils # 0.0 Nucleated Red Blood Cells # 0.0 Sodium Level 136 Potassium Level 3.7 Chloride Level 103 Carbon Dioxide Level 23 Anion Gap 14 Blood Urea Nitrogen 16 Creatinine 0.60 Glucose Level 234 H Calcium Level 8.6 Phosphorus Level 3.7 Magnesium Level 1.6 L Test 04/07/17 11:30 Bedside Glucose 158 Medications Medications Current Medications Ondansetron HCl (Zofran Inj) 4 mg Q6H PRN IV NAUSEA AND/OR VOMITING; Start 04/04 at 16:00 Acetaminophen (Tylenol Tab) 650 mg Q6H PRN PO PAIN LEVEL 1-3 OR FEVER Last administered on 04/05/17 10:59; Admin Dose 650 MG; Start 04/04/17 at 16:00 Morphine Sulfate (morphine) 2 mg Q4H PRN IV SEVERE PAIN LEVEL 7-10 Last administered on 04/07/17 02:05; Admin Dose 2 MG; Start 04/04/17 at 16:00 Magnesium Hydroxide (Milk Of Mag) 30 ml DAILY PRN PO CONSTIPATION; Start at 16:00 Bisacodyl (Dulcolax) 5 mg DAILY PRN PO CONSTIPATION; Start 04/04/17 at 16:00 Famotidine (Pepcid) 20 mg Q12 PO Last administered on 04/07/17 08:06; Admin Dose 20 MG; Start 04/04/17 at 21:00 Enoxaparin Sodium (Lovenox) 75 mg Q12 SC Last administered on 04/07/17 08:11; Admin Dose 75 MG; Start 04/04/17 at 21:00 Hydralazine HCl (Apresoline) 10 mg Q6H PRN IV SBP>160; Start 04/04/17 at 16:00 Gabapentin (Neurontin) 600 mg QHS PO Last administered on 04/06/17 20:35; Admin Dose 600 MG; Start 04/04/17 at 21:00 Miscellaneous Information 1 ea NOTE XX ; Start 04/04/17 at 17:00 Glucose (Glutose) 15 gm Q15M PRN PO DECREASED GLUCOSE; Start 04/04/17 at 17:00 Glucose (Glutose) 22.5 gm Q15M PRN PO DECREASED GLUCOSE; Start 04/04/17 at 17:00 Dextrose (D50w Syringe) 25 ml Q15M PRN IV DECREASED GLUCOSE; Start 04/04/17 at 17:00 Dextrose (D50w Syringe) 50 ml Q15M PRN IV DECREASED GLUCOSE; Start 04/04/17 at 17:00 Glucagon (Glucagen) 1 mg Q15M PRN IM DECREASED GLUCOSE; Start 04/04/17 at 17:00 Glucose (Glutose) 15 gm Q15M PRN BUCCAL DECREASED GLUCOSE; Start 04/04/17 at 17: 00 Oxycodone/ Acetaminophen 1 tab 1 tab Q4H PRN PO PAIN Last administered on 01:44; Admin Dose 1 TAB; Start 04/05/17 at 12:00 Ferric Sodium Gluconate Complex/ Sodium Chloride (Ferrlecit/NS) 110 ml @ 100 mls/hr Q24H IVPB Last administered on 04/06/17 14:30; Admin Dose 100 MLS/HR; Start 04/06/17 at 13:00; Stop 04/08/17 at 14:05 Insulin Glargine (Lantus) 24 unit DAILY@20 SC Last administered on 04/06/17 20: 43; Admin Dose 24 UNIT; Start 04/06/17 at 20:00 Ciprofloxacin HCl (Ciloxan 0.3% Oph) 1 drop Q4H BOTH EYES Last administered on 04/07/17 11:31; Admin Dose 1 DROP; Start 04/06/17 at 15:00 BENJAMIN ADKINS April 07, 2017 13:26
[2017-04-07] MEDS: SOD FERRIC GLUC COMPLX 125 MG in SOD CHLORIDE 0.9% 100 ML IVPB SCH (13:42)
[2017-04-07] MEDS: ACETAMINOPHEN 325 MG TAB PO PRN (13:42)
--- NOTE | 2017-04-07 17:39 | CONS ---
Date/Time of Note Date/Time of Note DATE: 04/07/17 TIME: 17:36 Assessment/Plan Assessment/Plan Chief Complaint/Hosp Course The patient is a 51-year-old female with past medical history of pulmonary embolism treated with coumadin for > 6 months, with recurrent bilateral pulmonary embolism while off coumadin after running out of medication two weeks ago. 1. Pulmonary embolism, bilateral, recurrent. Her first PE was unprovoked and in itself would have likely warranted lifelong anticoagulation. Given that she has had recurrent unprovoked PEs with her first clot treated with > 6 months of anticoagulation with recurrence with a few weeks of stopping coumadin, she would warrant lifelong anticoagulation regardless of hypercoagulable work-up. -.A hypercoagulable workup including protein C, protein S, lupus anticoagulant, and antithrombin III was ordered, will add beta2 glycoprotein IgM and IgG and anticardiolipin IgM and IgG - If patient found to be negative for antiphospholipid antibody syndrome, could switch to one of the new oral anticoaulgants such as eliquis or xarelto. Will request auth for xarelto or eliquis or lovenox. - D-dimer was elevated at 682.97 - Patient started on therapeutic lovenox - LE dopplers negative - Will request case management to obtain auth for pt to follow up with me upon discharge 2. History of right ovarian cyst, no change release manager 5+ years per patient, CA 125 normal at 25.8. Pelvic US showed enlarged right ovary with a probable hemorrhagic cyst measuring 6.1 x 5.7 x 5.4 cm. Due to the large size, gynecologic consultation is advised. Patient should follow up with loan review manager as an outpatient. Problems: Consultation Date/Type/Reason Admit Date/Time April 04, 2017 at 12:47 Initial Consult Date 04/04/17 Type of Consultation: Hematology 24 HR Interval Summary Free Text/Dictation Patient states that her breathing is better. She continues to have left back/ chest pain, pleuritic, improved with pain meds. Exam/Review of Systems Vital Signs Vitals Vital Signs Date Time Temp Pulse Resp B/P Pulse Ox O2 Delivery O2 Flow Rate FiO2 04/07/17 17:11 1.0 04/07/17 16:19 110 04/07/17 15:37 97.5 18 118/75 97 04/07/17 07:43 Nasal Cannula Intake and Output 04/06/17 04/06/17 04/07/17 14:59 22:59 06:59 Intake Total 800 ml 360 ml Balance 800 ml 360 ml Exam Constitutional: alert, oriented Head: normocephalic Neck: supple Respiratory: clear to auscultation Cardiovascular: regular rate and rhythm Gastrointestinal: non-tender, soft Musculoskeletal: nl extremities to inspection Neurological: HISTOLOGICAL ILLUSTRATOR II-XII intact Results Result Diagram: 04/07/1760204/07/17 06 Results 24 hrs Laboratory Tests Test 04/06/17 20:34 04/07/17 06:03 04/07/17 07:38 04/07/17 11:30 Bedside Glucose 139 189 158 White Blood Count 5.2 Red Blood Count 4.87 Hemoglobin 11.6 L Hematocrit 37.2 Mean Corpuscular Volume 76.4 L Mean Corpuscular Hemoglobin 23.8 L Mean Corpuscular Hemoglobin Concent 31.2 L Red Cell Distribution Width 14.3 Platelet Count 251 Mean Platelet Volume 10.6 H Neutrophils % 48.5 Lymphocytes % 39.7 Monocytes % 8.1 Eosinophils % 2.7 Basophils % 0.4 Nucleated Red Blood Cells % 0.0 Neutrophils # 2.5 Lymphocytes # 2.1 Monocytes # 0.4 Eosinophils # 0.1 Basophils # 0.0 Nucleated Red Blood Cells # 0.0 Sodium Level 136 Potassium Level 3.7 Chloride Level 103 Carbon Dioxide Level 23 Anion Gap 14 Blood Urea Nitrogen 16 Creatinine 0.60 Glucose Level 234 H Calcium Level 8.6 Phosphorus Level 3.7 Magnesium Level 1.6 L Medications Medications Current Medications Ondansetron HCl (Zofran Inj) 4 mg Q6H PRN IV NAUSEA AND/OR VOMITING; Start 04/04 at 16:00 Acetaminophen (Tylenol Tab) 650 mg Q6H PRN PO PAIN LEVEL 1-3 OR FEVER Last administered on 04/07/17 13:42; Admin Dose 650 MG; Start 04/04/17 at 16:00 Morphine Sulfate (morphine) 2 mg Q4H PRN IV SEVERE PAIN LEVEL 7-10 Last administered on 04/07/17 02:05; Admin Dose 2 MG; Start 04/04/17 at 16:00 Magnesium Hydroxide (Milk Of Mag) 30 ml DAILY PRN PO CONSTIPATION; Start at 16:00 Bisacodyl (Dulcolax) 5 mg DAILY PRN PO CONSTIPATION; Start 04/04/17 at 16:00 Famotidine (Pepcid) 20 mg Q12 PO Last administered on 04/07/17 08:06; Admin Dose 20 MG; Start 04/04/17 at 21:00 Enoxaparin Sodium (Lovenox) 75 mg Q12 SC Last administered on 04/07/17 08:11; Admin Dose 75 MG; Start 04/04/17 at 21:00 Hydralazine HCl (Apresoline) 10 mg Q6H PRN IV SBP>160; Start 04/04/17 at 16:00 Gabapentin (Neurontin) 600 mg QHS PO Last administered on 04/06/17 20:35; Admin Dose 600 MG; Start 04/04/17 at 21:00 Miscellaneous Information 1 ea NOTE XX ; Start 04/04/17 at 17:00 Glucose (Glutose) 15 gm Q15M PRN PO DECREASED GLUCOSE; Start 04/04/17 at 17:00 Glucose (Glutose) 22.5 gm Q15M PRN PO DECREASED GLUCOSE; Start 04/04/17 at 17:00 Dextrose (D50w Syringe) 25 ml Q15M PRN IV DECREASED GLUCOSE; Start 04/04/17 at 17:00 Dextrose (D50w Syringe) 50 ml Q15M PRN IV DECREASED GLUCOSE; Start 04/04/17 at 17:00 Glucagon (Glucagen) 1 mg Q15M PRN IM DECREASED GLUCOSE; Start 04/04/17 at 17:00 Glucose (Glutose) 15 gm Q15M PRN BUCCAL DECREASED GLUCOSE; Start 04/04/17 at 17: 00 Oxycodone/ Acetaminophen 1 tab 1 tab Q4H PRN PO PAIN Last administered on 01:44; Admin Dose 1 TAB; Start 04/05/17 at 12:00 Ferric Sodium Gluconate Complex/ Sodium Chloride (Ferrlecit/NS) 110 ml @ 100 mls/hr Q24H IVPB Last administered on 04/07/17 13:42; Admin Dose 100 MLS/HR; Start 04/06/17 at 13:00; Stop 04/08/17 at 14:05 Insulin Glargine (Lantus) 24 unit DAILY@20 SC Last administered on 04/06/17 20: 43; Admin Dose 24 UNIT; Start 04/06/17 at 20:00 Ciprofloxacin HCl (Ciloxan 0.3% Oph) 1 drop Q4H BOTH EYES Last administered on 04/07/17 15:38; Admin Dose 1 DROP; Start 04/06/17 at 15:00 ALVINO CRUZ MD April 07, 2017 17:38
[2017-04-07] MEDS: INSULIN GLARGINE [LANtus] 3 ML PEN SC SCH (20:11)
[2017-04-07] MEDS: GABAPENTIN 300 MG CAP PO SCH (20:22)
[2017-04-08] VITALS (12 sets, daily range): BP systolic 104–110; BP diastolic 58–72; PULSE 90–106; RESP 16–20
[2017-04-08] MEDS: CIPROFLOXACIN 0.3% 2.5 ML OPH BOTH EYES SCH ×6 (02:24→22:52)
[2017-04-08] MEDS: morphine 2 MG INJ IV PRN (06:21)
[2017-04-08] MEDS: INSULIN ASPART [NOVOLOG] 3 ML PEN SC SCH ×7 (07:54→20:22)
[2017-04-08] MEDS ORDERED: MAGNESIUM SULFATE 2 GM/50 ML 50 ML IVPB ONE (08:30)
[2017-04-08] MEDS: ENOXAPARIN 80 MG/0.8 ML SYG SC SCH ×2 (08:35→20:26)
[2017-04-08] MEDS: FAMOTIDINE 20 MG TAB PO SCH ×2 (08:37→20:17)
--- NOTE | 2017-04-08 09:38 | CONS ---
DATE OF ADMISSION: 04/04/2017 DATE OF CONSULTATION: 04/07/2017 TYPE OF CONSULTATION: Vascular surgery consultation. Dear Doctors: HISTORY OF PRESENT ILLNESS: Ms. Adams is a 51-year-old female who presented to Emergency Room at [facility] secondary to shortness of breath and findings of recurrent pulmonary emb olism. It seems that speaking with the patient she has had persistent left chest pleuritic pain and shortness of breath since the beginning of this year in December. Speaking with the patient, it see ms that she has had about 6 months to about a year peak flow findings of what seems to be pulmonary embolism. Originally her course started with presenting to [facility] [place] [facility] [place] [facility] she had shortness of breath and at that time she was diagnosed with pulmonary embolism and was s tarted on Coumadin. Unfortunately, it seems that her compliance with the medication has not been th e best and she has not been checked to be appropriate therapeutic INR levels, as the patient mention ed that she was set up with home health but the nursing staff had never followed up with her appropr iately. [facility] in which was diagnose d again with pulmonary embolus. She was continued with Coumadin and a third episode of lower extremi ty swelling, specifically her right side. She was evaluated at [facility] time the patient had underwent multiple studies for evaluation of a recurrence of pulmonary emboli sm at which time it was difficult to ascertain whether the filling defects were identified in the ri ght truncus of the anterior and distal right interlobar pulmonary artery branches, whether it was in complete recanalization of a chronic PE versus a recurrent new one. Needless to say, the patient wa s continued on Coumadin and again compliance has been a question as the patient does have some memor y lapse and asks her for most of the questions in terms of her care. Of note, speaking with the patient, she does have a pretty significant history of sickle cell in her family. It seems that everyone in her mother's side of the family has the sickle cell trait and has sickle cell anemia. She also mentions that her sister has sickle cell trait. However, she has nev er been tested during this period of time. Patient has had multiple pregnancies. She has had 2 misc arriages. One miscarriage was in the first trimester, which is of significant as the patient was no t explained to why that happened. The second miscarriage happened early in her second trimester. Ventura elias does have a history of stroke from which she is able to elaborate to us with some gait imbalance a nd she uses a walker at home. She also mentions that during her first she was given an ep idural that had some complications and ever since then she has had issues with her ambulation and he r gait. From her father's side of the family they are mainly diabetics and with further questioning it seems that the patient denies any sort of oral contraceptive pills, hormone replacement therapy, smoking, or any unusual herbal medications. At the moment, the patient does have cough and does hav e some shortness of breath otherwise denies nausea, vomiting, fever or chills. REVIEW OF SYSTEMS: A 12-point review performed and negative except what is mentioned in the HPI. PAST MEDICAL HISTORY: Acute on chronic pulmonary embolism, type 2 diabetes, ____ neuropathy, asthma , gastroparesis, anemia, right ovarian cyst. PAST SURGICAL HISTORY: , 2 miscarriages. FAMILY HISTORY: Positive for sickle cell and the sickle cell trait. SOCIAL HISTORY: Patient denies tobacco, alcohol or illicit drug use. PHYSICAL EXAMINATION: GENERAL: She is alert and oriented x3. No apparent distress. HEENT: Normocephalic, atraumatic. PERRLA, EOMI. Mucosa moist. Temporal wasting. NECK: Supple. No carotid bruit. PULMONARY: Coarse breath sounds bilaterally, crackles at the bases. CARDIOVASCULAR: S1, S2 present. No murmurs. ABDOMEN: Soft, nontender, nondistended. Bowel sounds positive. EXTREMITIES: Lower extremities, palpable femoral pulse on the lower extremities. Right lower extremity palpable femoral pulse, nonpalpable pedal pulse. Motor, sensory intact. Cap refill 3 seconds. She does have flat feet and she does have some component of lipodermatosclerosis. Left lower extremity palpable femoral pulse, nonpalpable pedal pulse. Motor, sensory intact. Cap r efill 3 to 4 seconds, presence of lipodermatosclerosis. No ulcers. ASSESSMENT AND PLAN: Bilateral acute on chronic pulmonary embolism: It seems that the patient has d eveloped atypical findings of PE without findings of lower extremity deep vein thrombosis. She does present with what seems to be hypercoagulable state; however, I do not have any of her records from [facility] from when she originally was diagnosed. However, current blood work is pendi candelaria and will follow up with our hematology colleagues. From my standpoint, it seems that the Coumadi n is not a viable choice as it requires the patient follow up and INR monitoring, perhaps we can sta rt her on a newer medication that would be acceptable to our hematology colleagues and for the patie nt to be more compliant with. Sickle cell anemia: The patient has a strong family history of sickle cell anemia. This could be a possibility of her findings that suggest perhaps hypercoaguable state. Would recommend obtaining [employer] blood work and testing in order to see if she has the trait or if she is a carrier. Optimize vascular status (IV fluid hydration, anticoagulation, blood pressure meds, cholesterol, sug ar control, antiplatelets). Discussed findings, plan and management with the patient and she understands with her on the phone. Thank you for allowing us to partake in the care of your patient. Please call with any questions. Right common femoral artery stenosis: Based on ultrasound findings, she does have some component st enosis. She did have what seems to be a right hip injury in the past which could have caused an int imal injury. However, that is not a ____ finding. We will continue to follow the patient for vascul ar surveillance as an outpatient. Dictated By: WENDIE URENA/VINCENT Conf#: [id number] DID#: [id number]
[2017-04-08 10:11] LABS: ADD SCAN DIFF NO
[2017-04-08 10:14] LABS: BASOPHILS % 0.3 % (0.0-2.0); EOSINOPHILS # 0.2 10^3/ul (0.0-0.5); EOSINOPHILS % 2.2 % (0.0-7.0); HEMATOCRIT 37.9 % (37.0-47.0); HEMOGLOBIN 11.7 g/dl (12.0-16.0); LYMPHOCYTES # 2.1 10^3/ul (0.8-2.9); LYMPHOCYTES % 28.9 % (15.0-51.0); MEAN CORPUSCULAR HEMOGLOBIN 23.8 pg (29.0-33.0); MEAN CORPUSCULAR HGB CONC 30.9 g/dl (32.0-37.0); MEAN CORPUSCULAR VOLUME 77.2 fl (82.0-101.0); MEAN PLATELET VOLUME 10.1 fl (7.4-10.4); MONOCYTE # 0.5 10^3/ul (0.3-0.9); MONOCYTES % 6.7 % (0.0-11.0); NEUTROPHIL # 4.5 10^3/ul (1.6-7.5); PLATELET COUNT 267 10^3/UL (140-415); RED BLOOD COUNT 4.91 10^6/ul (4.20-5.40); RED CELL DISTRIBUTION WIDTH 14.7 % (11.5-14.5); WHITE BLOOD COUNT 7.4 10^3/ul (4.8-10.8)
[2017-04-08 10:36] LABS: ALBUMIN 3.6 g/dl (3.3-4.9); ALBUMIN/GLOBULIN RATIO 0.81; BILIRUBIN,INDIRECT 0.2 mg/dl (0-1.1); BILIRUBIN,TOTAL 0.2 mg/dl (0.2-1.3); CALCIUM 8.5 mg/dl (8.4-10.2); CREATININE 0.68 mg/dl (0.44-1.00); MAGNESIUM 1.7 mg/dl (1.7-2.5); POTASSIUM 3.9 mmol/L (3.5-5.1)
[2017-04-08] MEDS: SOD FERRIC GLUC COMPLX 125 MG in SOD CHLORIDE 0.9% 100 ML IVPB SCH (12:16)
[2017-04-08] MEDS ORDERED: FER325 PO (13:46)
[2017-04-08] MEDS ORDERED: APIX5TAB PO (13:46)
[2017-04-08] MEDS ORDERED: NOVO3I SC (13:46)
[2017-04-08] MEDS ORDERED: Oxycodone/Acetamin (5/325) PO (13:46)
[2017-04-08] MEDS ORDERED: DOCU-144 PO (13:46)
[2017-04-08] MEDS ORDERED: LANT3I SC (13:46)
--- NOTE | 2017-04-08 13:50 | PDOCDIS ---
Discharge Instructions DIAGNOSIS Discharge Diagnosis: 1. Bilateral pulmonary embolism recurrence 2. Type 2 diabetes 2 for diabe CONDITION Patient Condition: Stable HOME CARE INSTRUCTIONS: Special Diet: Carb. control FOLLOW UP/APPOINTMENTS Appointments 1. Follow up with Dr. Tracy Arellano/ Dr. Acacia Hampton in one week 2. Follow up with Dr. Burton Niño in one to two weeks BENJAMIN ADKINS April 08, 2017 13:50
--- NOTE | 2017-04-08 14:17 | RADRPT ---
PROCEDURE: US upper extremity Venous. CLINICAL INDICATION: Left arm edema , pain TECHNIQUE: Multiple sonographic images of the left upper extremity venous system was obtained util izing grayscale, color-flow, compressive sonography and doppler imaging with augmentation. The imag es were reviewed on a PACS workstation. COMPARISON: None. FINDINGS: There is normal compressibility and flow within the left internal jugular vein, subclavian vein, axi llary vein, brachial, cephalic, radial and ulnar veins. There is thrombosis of the left basilic vein. RPTAT: AA IMPRESSION: Thrombosis of the left basilic vein. A call report was made and a voice message left for Burton Pino (D) at 04/08/2017 2:15:30 PM. .Major Mas MD, Date Time Electronically viewed and signed by .Major Mas MD, on 04/08/2017 14:17 .S/
--- NOTE | 2017-04-08 15:31 | CONS ---
Date/Time of Note Date/Time of Note DATE: 04/08/17 TIME: 15:30 Assessment/Plan Assessment/Plan Chief Complaint/Hosp Course The patient is a 51-year-old female with past medical history of pulmonary embolism treated with coumadin for > 6 months, with recurrent bilateral pulmonary embolism while off coumadin after running out of medication two weeks ago. 1. Pulmonary embolism, bilateral, recurrent. Her first PE was unprovoked and in itself would have likely warranted lifelong anticoagulation. Given that she has had recurrent unprovoked PEs with her first clot treated with > 6 months of anticoagulation with recurrence with a few weeks of stopping coumadin, she would warrant lifelong anticoagulation regardless of hypercoagulable work-up. -.A hypercoagulable workup including protein C, protein S, lupus anticoagulant, and antithrombin III was ordered, will add beta2 glycoprotein IgM and IgG and anticardiolipin IgM and IgG - If patient found to be negative for antiphospholipid antibody syndrome, could switch to one of the new oral anticoaulgants such as eliquis or xarelto however , per primary team, insurance will not authorize. Will check with case management. Patient previously on coumadin but did not have sufficient INR monitoring. - D-dimer was elevated at 682.97 - Patient started on therapeutic lovenox - LE dopplers negative; LUE doppler shows left basilic vein thrombosis, which is a superficial vein thrombus - as symptomatic may warrant anticoagulation which patient already on for PE, therefore that does not director workforce management - Will request case management to obtain auth for pt to follow up with me upon discharge 2. History of right ovarian cyst, no gizzard skin remover 5+ years per patient, CA 125 normal at 25.8. Pelvic US showed enlarged right ovary with a probable hemorrhagic cyst measuring 6.1 x 5.7 x 5.4 cm. Due to the large size, gynecologic consultation is advised. Patient should follow up with fabric machine operator as an outpatient. Problems: Consultation Date/Type/Reason Admit Date/Time April 04, 2017 at 12:47 Initial Consult Date 04/04/17 Type of Consultation: Hematology 24 HR Interval Summary Free Text/Dictation Patient states that her breathing is better. She does have LUE pain. Exam/Review of Systems Vital Signs Vitals Vital Signs Date Time Temp Pulse Resp B/P Pulse Ox O2 Delivery O2 Flow Rate FiO2 04/08/17 15:21 98.1 76 18 110/66 100 04/08/17 11:42 Room Air 04/08/17 07:36 1.0 Intake and Output 04/07/17 04/07/17 04/08/17 15:00 23:00 07:00 Intake Total 110 ml 900 ml 200 ml Balance 110 ml 900 ml 200 ml Results Result Diagram: 04/08/17 1001 04/08/17 1001 Results 24 hrs Laboratory Tests Test 04/07/17 17:55 04/07/17 20:06 04/08/17 02:23 04/08/17 07:28 Bedside Glucose 173 189 177 180 Test 04/08/17 10:01 04/08/17 11:40 White Blood Count 7.4 # Red Blood Count 4.91 Hemoglobin 11.7 L Hematocrit 37.9 Mean Corpuscular Volume 77.2 L Mean Corpuscular Hemoglobin 23.8 L Mean Corpuscular Hemoglobin Concent 30.9 L Red Cell Distribution Width 14.7 H Platelet Count 267 Mean Platelet Volume 10.1 Neutrophils % 61.0 Lymphocytes % 28.9 Monocytes % 6.7 Eosinophils % 2.2 Basophils % 0.3 Nucleated Red Blood Cells % 0.0 Neutrophils # 4.5 Lymphocytes # 2.1 Monocytes # 0.5 Eosinophils # 0.2 Basophils # 0.0 Nucleated Red Blood Cells # 0.0 Sodium Level 137 Potassium Level 3.9 Chloride Level 105 Carbon Dioxide Level 25 Anion Gap 11 Blood Urea Nitrogen 12 Creatinine 0.68 Glucose Level 217 Calcium Level 8.5 Magnesium Level 1.7 Total Bilirubin 0.2 Direct Bilirubin 0.00 Indirect Bilirubin 0.2 Aspartate Amino Transf (AST/SGOT) 21 Alanine Aminotransferase (ALT/SGPT) 30 Alkaline Phosphatase 86 Total Protein 8.0 Albumin 3.6 Globulin 4.40 H Albumin/Globulin Ratio 0.81 Bedside Glucose 227 H Medications Medications Current Medications Ondansetron HCl (Zofran Inj) 4 mg Q6H PRN IV NAUSEA AND/OR VOMITING; Start 04/04 at 16:00 Acetaminophen (Tylenol Tab) 650 mg Q6H PRN PO PAIN LEVEL 1-3 OR FEVER Last administered on 04/07/17t 13:42; Admin Dose 650 MG; Start 04/04/17 at 16:00 Morphine Sulfate (morphine) 2 mg Q4H PRN IV SEVERE PAIN LEVEL 7-10 Last administered on 04/08/17 06:21; Admin Dose 2 MG; Start 04/04/17 at 16:00 Magnesium Hydroxide (Milk Of Mag) 30 ml DAILY PRN PO CONSTIPATION; Start at 16:00 Bisacodyl (Dulcolax) 5 mg DAILY PRN PO CONSTIPATION; Start 04/04/17 at 16:00 Famotidine (Pepcid) 20 mg Q12 PO Last administered on 04/08/17 08:37; Admin Dose 20 MG; Start 04/04/17 at 21:00 Enoxaparin Sodium (Lovenox) 75 mg Q12 SC Last administered on 04/08/17 08:35; Admin Dose 75 MG; Start 04/04/17 at 21:00 Hydralazine HCl (Apresoline) 10 mg Q6H PRN IV SBP>160; Start 04/04/17 at 16:00 Gabapentin (Neurontin) 600 mg QHS PO Last administered on 04/07/17 20:22; Admin Dose 600 MG; Start 04/04/17 at 21:00 Miscellaneous Information 1 ea NOTE XX ; Start 04/04/17 at 17:00 Glucose (Glutose) 15 gm Q15M PRN PO DECREASED GLUCOSE; Start 04/04/17 at 17:00 Glucose (Glutose) 22.5 gm Q15M PRN PO DECREASED GLUCOSE; Start 04/04/17 at 17:00 Dextrose (D50w Syringe) 25 ml Q15M PRN IV DECREASED GLUCOSE; Start 04/04/17 at 17:00 Dextrose (D50w Syringe) 50 ml Q15M PRN IV DECREASED GLUCOSE; Start 04/04/17 at 17:00 Glucagon (Glucagen) 1 mg Q15M PRN IM DECREASED GLUCOSE; Start 04/04/17 at 17:00 Glucose (Glutose) 15 gm Q15M PRN BUCCAL DECREASED GLUCOSE; Start 04/04/17 at 17: 00 Oxycodone/ Acetaminophen (Percocet (5/ 325)) 1 tab Q4H PRN PO PAIN Last administered on 04/06/17 01:44; Admin Dose 1 TAB; Start 04/05/17 at 12:00 Ciprofloxacin HCl (Ciloxan 0.3% Oph) 1 drop Q4H BOTH EYES Last administered on 04/08/17 15:14; Admin Dose 1 DROP; Start 04/06/17 at 15:00 Insulin Glargine (Lantus) 27 unit DAILY@20 SC ; Start 04/08/17 at 20:00 TOALVINO MD April 08, 2017 15:31
--- NOTE | 2017-04-08 18:07 | PN ---
Date/Time of Note Date/Time of Note DATE: 04/08/17 TIME: 18:02 Assessment/Plan VTE Prophylaxis VTE Prophylaxis Intervention: LMWH Lines/Catheters IV [facility] Type (from [facility] Saline Lock Urinary Cath still in place: No Assessment/Plan Chief Complaint/Hosp Course Assessment and plan 1. Bilateral pulmonary embolism recurrent. Patient on therapeutic dose of Lovenox. Continue. Hematology following. Follow-up hypercoagulable study. Of note patient did have bilateral lower extremity Doppler negative for any DVT 2. Chest pain secondary to #1. Continue with analgesics. Serial troponins negative. ECHO did show preserved ejection fraction with EF at 65%. 3. Type 2 diabetes. Continue insulin regimen. A1c was noted at 12.1. 4. Diabetic neuropathy. Continue Neurontin 5. Asthma. No active bronchospasm at this time. Continue on bronchodilators as needed 6. Right common femoral stenosis of 30-49%. Vascular surgeon to follow. Will follow up with recommendations. 7. Iron deficiency anemia. Continue iron supplement. 8. Reported right ovarian cyst. Patient for outpatient follow-up study by DIRECTOR [employer]. Disposition and plan: Patient's insurance not covering for eliquis/xarelto. Will try to get auth for pradaxa/lovenox. Follow up with hematology recs Discussed plan of care with Dr. Spears Problems: Subjective 24 Hr Interval Summary Free Text/Dictation resting at this time. reports better breathing and less chest pain Exam/Review of Systems Vital Signs Vitals Vital Signs Date Time Temp Pulse Resp B/P Pulse Ox O2 Delivery O2 Flow Rate FiO2 04/08/17 17:25 104 04/08/17 15:21 98.1 18 110/66 100 04/08/17 11:42 Room Air 04/08/17 07:36 1.0 Intake and Output 04/07/17 04/07/17 04/08/17 15:00 23:00 07:00 Intake Total 110 ml 900 ml 200 ml Balance 110 ml 900 ml 200 ml Exam Constitutional: alert, oriented Psych: no complaints Head: normocephalic Neck: supple, No non-tender Respiratory: clear to auscultation, normal air movement Cardiovascular: regular rate and rhythm Gastrointestinal: non-tender, soft Musculoskeletal: nl extremities to inspection Extremities: normal pulses Neurological: ASSISTANT PORTFOLIO MANAGER II-XII intact, nl mental status, nl speech Results Result Diagram: 04/08/17 1001 04/08/17 1001 Results 24 hrs Laboratory Tests Test 04/07/17 20:06 04/08/17 02:23 04/08/17 07:28 04/08/17 10:01 Bedside Glucose 189 177 180 White Blood Count 7.4 # Red Blood Count 4.91 Hemoglobin 11.7 L Hematocrit 37.9 Mean Corpuscular Volume 77.2 L Mean Corpuscular Hemoglobin 23.8 L Mean Corpuscular Hemoglobin Concent 30.9 L Red Cell Distribution Width 14.7 H Platelet Count 267 Mean Platelet Volume 10.1 Neutrophils % 61.0 Lymphocytes % 28.9 Monocytes % 6.7 Eosinophils % 2.2 Basophils % 0.3 Nucleated Red Blood Cells % 0.0 Neutrophils # 4.5 Lymphocytes # 2.1 Monocytes # 0.5 Eosinophils # 0.2 Basophils # 0.0 Nucleated Red Blood Cells # 0.0 Sodium Level 137 Potassium Level 3.9 Chloride Level 105 Carbon Dioxide Level 25 Anion Gap 11 Blood Urea Nitrogen 12 Creatinine 0.68 Glucose Level 217 Calcium Level 8.5 Magnesium Level 1.7 Total Bilirubin 0.2 Direct Bilirubin 0.00 Indirect Bilirubin 0.2 Aspartate Amino Transf (AST/SGOT) 21 Alanine Aminotransferase (ALT/SGPT) 30 Alkaline Phosphatase 86 Total Protein 8.0 Albumin 3.6 Globulin 4.40 H Albumin/Globulin Ratio 0.81 Test 04/08/17 11:40 04/08/17 17:34 Bedside Glucose 227 H 170 Medications Medications Current Medications Ondansetron HCl (Zofran Inj) 4 mg Q6H PRN IV NAUSEA AND/OR VOMITING; Start 04/04 at 16:00 Acetaminophen (Tylenol Tab) 650 mg Q6H PRN PO PAIN LEVEL 1-3 OR FEVER Last administered on 04/07/17 13:42; Admin Dose 650 MG; Start 04/04/17 at 16:00 Morphine Sulfate (morphine) 2 mg Q4H PRN IV SEVERE PAIN LEVEL 7-10 Last administered on 04/08/17 06:21; Admin Dose 2 MG; Start 04/04/17 at 16:00 Magnesium Hydroxide (Milk Of Mag) 30 ml DAILY PRN PO CONSTIPATION; Start at 16:00 Bisacodyl (Dulcolax) 5 mg DAILY PRN PO CONSTIPATION; Start 04/04/17 at 16:00 Famotidine (Pepcid) 20 mg Q12 PO Last administered on 04/08/17 08:37; Admin Dose 20 MG; Start 04/04/17 at 21:00 Enoxaparin Sodium (Lovenox) 75 mg Q12 SC Last administered on 04/08/17 08:35; Admin Dose 75 MG; Start 04/04/17 at 21:00 Hydralazine HCl (Apresoline) 10 mg Q6H PRN IV SBP>160; Start 04/04/17 at 16:00 Gabapentin (Neurontin) 600 mg QHS PO Last administered on 04/07/17 20:22; Admin Dose 600 MG; Start 04/04/17 at 21:00 Miscellaneous Information 1 ea NOTE XX ; Start 04/04/17 at 17:00 Glucose (Glutose) 15 gm Q15M PRN PO DECREASED GLUCOSE; Start 04/04/17 at 17:00 Glucose (Glutose) 22.5 gm Q15M PRN PO DECREASED GLUCOSE; Start 04/04/17 at 17:00 Dextrose (D50w Syringe) 25 ml Q15M PRN IV DECREASED GLUCOSE; Start 04/04/17 at 17:00 Dextrose (D50w Syringe) 50 ml Q15M PRN IV DECREASED GLUCOSE; Start 04/04/17 at 17:00 Glucagon (Glucagen) 1 mg Q15M PRN IM DECREASED GLUCOSE; Start 04/04/17 at 17:00 Glucose (Glutose) 15 gm Q15M PRN BUCCAL DECREASED GLUCOSE; Start 04/04/17 at 17: 00 Oxycodone/ Acetaminophen (Percocet (5/ 325)) 1 tab Q4H PRN PO PAIN Last administered on 04/06/17 01:44; Admin Dose 1 TAB; Start 04/05/17 at 12:00 Ciprofloxacin HCl (Ciloxan 0.3% Oph) 1 drop Q4H BOTH EYES Last administered on 04/08/17 15:14; Admin Dose 1 DROP; Start 04/06/17 at 15:00 Insulin Glargine (Lantus) 27 unit DAILY@20 SC ; Start 04/08/17 at 20:00 BENJAMIN ADKINS April 08, 2017 18:07
[2017-04-08] MEDS: GABAPENTIN 300 MG CAP PO SCH (20:17)
[2017-04-08] MEDS: INSULIN GLARGINE [LANtus] 3 ML PEN SC SCH (20:19)
[2017-04-09] VITALS (11 sets, daily range): BP systolic 98–133; BP diastolic 58–78; PULSE 82–100; RESP 18–20
[2017-04-09] MEDS: CIPROFLOXACIN 0.3% 2.5 ML OPH BOTH EYES SCH ×6 (03:00→23:44)
[2017-04-09] MEDS: INSULIN ASPART [NOVOLOG] 3 ML PEN SC SCH ×7 (07:55→21:18)
[2017-04-09] MEDS: FAMOTIDINE 20 MG TAB PO SCH ×2 (08:28→21:09)
[2017-04-09] MEDS: ENOXAPARIN 80 MG/0.8 ML SYG SC SCH ×2 (09:18→21:29)
--- NOTE | 2017-04-09 11:53 | CONS ---
Date/Time of Note Date/Time of Note DATE: 04/09/17 TIME: 11:51 Assessment/Plan Assessment/Plan Chief Complaint/Hosp Course The patient is a 51-year-old female with past medical history of pulmonary embolism treated with coumadin for > 6 months, with recurrent bilateral pulmonary embolism while off coumadin after running out of medication two weeks ago. 1. Pulmonary embolism, bilateral, recurrent. Her first PE was unprovoked and in itself would have likely warranted lifelong anticoagulation. Given that she has had recurrent unprovoked PEs with her first clot treated with > 6 months of anticoagulation with recurrence with a few weeks of stopping coumadin, she would warrant lifelong anticoagulation regardless of hypercoagulable work-up. -.A hypercoagulable workup including protein C, protein S, lupus anticoagulant, and antithrombin III was ordered, will add beta2 glycoprotein IgM and IgG and anticardiolipin IgM and IgG - If patient found to be negative for antiphospholipid antibody syndrome, could switch to one of the new oral anticoaulgants such as eliquis or xarelto however , per primary team, insurance will not authorize. Will try to obtain auth for lovenox or pardaxa. Will check with case management. Patient previously on coumadin but did not have sufficient INR monitoring. - D-dimer was elevated at 682.97 - Patient started on therapeutic lovenox - LE dopplers negative; LUE doppler shows left basilic vein thrombosis, which is a superficial vein thrombus - as symptomatic may warrant anticoagulation which patient already on for PE, therefore that does not foreign exchange student coordinator - Will request case management to obtain auth for pt to follow up with me upon discharge 2. History of right ovarian cyst, no waste/materials exchange specialist 5+ years per patient, CA 125 normal at 25.8. Pelvic US showed enlarged right ovary with a probable hemorrhagic cyst measuring 6.1 x 5.7 x 5.4 cm. Due to the large size, gynecologic consultation is advised. Patient should follow up with learning officer as an outpatient. Problems: Consultation Date/Type/Reason Admit Date/Time April 04, 2017 at 12:47 Initial Consult Date 04/04/17 Type of Consultation: Hematology 24 HR Interval Summary Free Text/Dictation The patient states that her breathing is "ok." Exam/Review of Systems Vital Signs Vitals Vital Signs Date Time Temp Pulse Resp B/P Pulse Ox O2 Delivery O2 Flow Rate FiO2 5/10/17 11:44 99.0 90 19 126/78 96 04/09/17 08:33 Nasal Cannula 1.0 Intake and Output 04/08/17 04/08/17 04/09/17 14:59 22:59 06:59 Intake Total 160 ml 1040 ml 120 ml Balance 160 ml 1040 ml 120 ml Exam Constitutional: alert, oriented Head: normocephalic Neck: supple Respiratory: clear to auscultation Cardiovascular: regular rate and rhythm Gastrointestinal: non-tender, soft Musculoskeletal: nl extremities to inspection Neurological: CONTACT LENS CUTTER II-XII intact Results Result Diagram: 04/08/17 1001 04/08/17 1001 Results 24 hrs Laboratory Tests Test 04/08/17 17:34 04/08/17 20:16 04/09/17 03:04 04/09/17 08:25 Bedside Glucose 170 190 111 119 Medications Medications Current Medications Ondansetron HCl (Zofran Inj) 4 mg Q6H PRN IV NAUSEA AND/OR VOMITING; Start 04/04 at 16:00 Acetaminophen (Tylenol Tab) 650 mg Q6H PRN PO PAIN LEVEL 1-3 OR FEVER Last administered on 04/07/17 13:42; Admin Dose 650 MG; Start 04/04/17 at 16:00 Morphine Sulfate (morphine) 2 mg Q4H PRN IV SEVERE PAIN LEVEL 7-10 Last administered on 04/08/17 06:21; Admin Dose 2 MG; Start 04/04/17 at 16:00 Magnesium Hydroxide (Milk Of Mag) 30 ml DAILY PRN PO CONSTIPATION; Start at 16:00 Bisacodyl (Dulcolax) 5 mg DAILY PRN PO CONSTIPATION; Start 04/04/17 at 16:00 Famotidine (Pepcid) 20 mg Q12 PO Last administered on 04/09/17 08:28; Admin Dose 20 MG; Start 04/04/17 at 21:00 Enoxaparin Sodium (Lovenox) 75 mg Q12 SC Last administered on 04/09/17 09:18; Admin Dose 75 MG; Start 04/04/17 at 21:00 Hydralazine HCl (Apresoline) 10 mg Q6H PRN IV SBP>160; Start 04/04/17 at 16:00 Gabapentin (Neurontin) 600 mg QHS PO Last administered on 04/08/17 20:17; Admin Dose 600 MG; Start 04/04/17 at 21:00 Miscellaneous Information 1 ea NOTE XX ; Start 04/04/17 at 17:00 Glucose (Glutose) 15 gm Q15M PRN PO DECREASED GLUCOSE; Start 04/04/17 at 17:00 Glucose (Glutose) 22.5 gm Q15M PRN PO DECREASED GLUCOSE; Start 04/04/17 at 17:00 Dextrose (D50w Syringe) 25 ml Q15M PRN IV DECREASED GLUCOSE; Start 04/04/17 at 17:00 Dextrose (D50w Syringe) 50 ml Q15M PRN IV DECREASED GLUCOSE; Start 04/04/17 at 17:00 Glucagon (Glucagen) 1 mg Q15M PRN IM DECREASED GLUCOSE; Start 04/04/17 at 17:00 Glucose (Glutose) 15 gm Q15M PRN BUCCAL DECREASED GLUCOSE; Start 04/04/17 at 17: 00 Oxycodone/ Acetaminophen (Percocet (5/ 325)) 1 tab Q4H PRN PO PAIN Last administered on 04/06/17 01:44; Admin Dose 1 TAB; Start 04/05/17 at 12:00 Ciprofloxacin HCl (Ciloxan 0.3% Oph) 1 drop Q4H BOTH EYES Last administered on 04/09/17 08:28; Admin Dose 1 DROP; Start 04/06/17 at 15:00 Insulin Glargine (Lantus) 27 unit DAILY@20 SC Last administered on 04/08/17 20: 19; Admin Dose 27 UNIT; Start 04/08/17 at 20:00 ALVINO CRUZ MD April 09, 2017 11:53
--- NOTE | 2017-04-09 13:57 | PN ---
Date/Time of Note Date/Time of Note DATE: 04/09/17 TIME: 13:54 Assessment/Plan VTE Prophylaxis VTE Prophylaxis Intervention: LMWH Lines/Catheters IV C[facility]ter Type (from [facility]): Saline Lock Urinary Cath still in place: No Assessment/Plan Chief Complaint/Hosp Course Assessment and plan 1. Bilateral pulmonary embolism recurrent. Patient on therapeutic dose of Lovenox. Continue. Hematology following. . Of note patient did have bilateral lower extremity Doppler negative for any DVT. Awaiting case management follow-up for authorization for Pradaxa or Lovenox (of note, patient insurance reported did not cover Xarelto or Eliquis) 2. Chest pain secondary to #1. Continue with analgesics. Serial troponins negative. Echocardiogram did show preserved ejection fraction with EF at 65%. 3. Type 2 diabetes. Continue insulin regimen. A1c was noted at 12.1. 4. Diabetic neuropathy. Continue Neurontin 5. Asthma. No active bronchospasm at this time. Continue on bronchodilators as needed 6. Right common femoral stenosis of 30-49%. Vascular surgeon to follow. Will follow up with recommendations. 7. Iron deficiency anemia. Continue iron supplement. 8. Reported right ovarian cyst. Patient for outpatient follow-up study by APPRENTICE ARCHITECT. Disposition and plan: Still awaiting possible authorization for Pradaxa/ Lovenox. Will follow up with case management Discussed plan of care with Dr. Spears Problems: Subjective 24 Hr Interval Summary Free Text/Dictation Comfortable at present. Exam/Review of Systems Vital Signs Vitals Vital Signs Date Time Temp Pulse Resp B/P Pulse Ox O2 Delivery O2 Flow Rate FiO2 04/09/17 12:49 96 04/09/17 11:44 99.0 19 126/78 96 04/09/17 08:33 Nasal Cannula 1.0 Intake and Output 04/08/17 04/08/17 04/09/17 14:59 22:59 06:59 Intake Total 160 ml 1040 ml 120 ml Balance 160 ml 1040 ml 120 ml Exam Constitutional: alert, oriented Psych: nl mood/affect, no complaints Head: normocephalic Respiratory: clear to auscultation Cardiovascular: regular rate and rhythm Gastrointestinal: non-tender, soft Musculoskeletal: nl extremities to inspection Extremities: normal pulses Neurological: nl mental status, nl speech Results Result Diagram: 04/08/17 1001 04/08/17 1001 Results 24 hrs Laboratory Tests Test 04/08/17 17:34 04/08/17 20:16 04/09/17 03:04 04/09/17 08:25 Bedside Glucose 170 190 111 119 Test 04/09/17 12:01 04/09/17 12:30 04/09/17 12:53 Bedside Glucose 116 Lab Scanned Report REFERENCE LAB REFERENCE LAB Medications Medications Current Medications Ondansetron HCl (Zofran Inj) 4 mg Q6H PRN IV NAUSEA AND/OR VOMITING; Start 04/04 at 16:00 Acetaminophen (Tylenol Tab) 650 mg Q6H PRN PO PAIN LEVEL 1-3 OR FEVER Last administered on 04/07/17 13:42; Admin Dose 650 MG; Start 04/04/17 at 16:00 Morphine Sulfate (morphine) 2 mg Q4H PRN IV SEVERE PAIN LEVEL 7-10 Last administered on 04/08/17 06:21; Admin Dose 2 MG; Start 04/04/17 at 16:00 Magnesium Hydroxide (Milk Of Mag) 30 ml DAILY PRN PO CONSTIPATION; Start at 16:00 Bisacodyl (Dulcolax) 5 mg DAILY PRN PO CONSTIPATION; Start 04/04/17 at 16:00 Famotidine (Pepcid) 20 mg Q12 PO Last administered on 04/09/17 08:28; Admin Dose 20 MG; Start 04/04/17 at 21:00 Enoxaparin Sodium (Lovenox) 75 mg Q12 SC Last administered on 04/09/17 09:18; Admin Dose 75 MG; Start 04/04/17 at 21:00 Hydralazine HCl (Apresoline) 10 mg Q6H PRN IV SBP>160; Start 04/04/17 at 16:00 Gabapentin (Neurontin) 600 mg QHS PO Last administered on 04/08/17 20:17; Admin Dose 600 MG; Start 04/04/17 at 21:00 Miscellaneous Information 1 ea NOTE XX ; Start 04/04/17 at 17:00 Glucose (Glutose) 15 gm Q15M PRN PO DECREASED GLUCOSE; Start 04/04/17 at 17:00 Glucose (Glutose) 22.5 gm Q15M PRN PO DECREASED GLUCOSE; Start 04/04/17 at 17:00 Dextrose (D50w Syringe) 25 ml Q15M PRN IV DECREASED GLUCOSE; Start 04/04/17 at 17:00 Dextrose (D50w Syringe) 50 ml Q15M PRN IV DECREASED GLUCOSE; Start 04/04/17 at 17:00 Glucagon (Glucagen) 1 mg Q15M PRN IM DECREASED GLUCOSE; Start 04/04/17 at 17:00 Glucose (Glutose) 15 gm Q15M PRN BUCCAL DECREASED GLUCOSE; Start 04/04/17 at 17: 00 Oxycodone/ Acetaminophen (Percocet (5/ 325)) 1 tab Q4H PRN PO PAIN Last administered on 04/06/17 01:44; Admin Dose 1 TAB; Start 04/05/17 at 12:00 Ciprofloxacin HCl (Ciloxan 0.3% Oph) 1 drop Q4H BOTH EYES Last administered on 04/09/17 12:03; Admin Dose 1 DROP; Start 04/06/17 at 15:00 Insulin Glargine (Lantus) 27 unit DAILY@20 SC Last administered on 04/08/17 20: 19; Admin Dose 27 UNIT; Start 04/08/17 at 20:00 BENJAMIN ADKINS April 09, 2017 13:57
[2017-04-09] MEDS: ACETAMINOPHEN 325 MG TAB PO PRN (16:13)
[2017-04-09] MEDS: GABAPENTIN 300 MG CAP PO SCH (21:09)
[2017-04-09] MEDS: INSULIN GLARGINE [LANtus] 3 ML PEN SC SCH (21:23)
[2017-04-09] MEDS: morphine 2 MG INJ IV PRN (23:41)
[2017-04-10] VITALS (12 sets, daily range): BP systolic 105–126; BP diastolic 56–77; PULSE 87–97; RESP 17–20
[2017-04-10] MEDS: CIPROFLOXACIN 0.3% 2.5 ML OPH BOTH EYES SCH ×6 (03:00→21:26)
[2017-04-10] MEDS: INSULIN ASPART [NOVOLOG] 3 ML PEN SC SCH ×7 (07:25→22:06)
[2017-04-10] MEDS: FAMOTIDINE 20 MG TAB PO SCH ×2 (08:14→21:21)
[2017-04-10] MEDS: ENOXAPARIN 80 MG/0.8 ML SYG SC SCH ×2 (08:17→22:00)
--- NOTE | 2017-04-10 13:45 | CONS ---
Date/Time of Note Date/Time of Note DATE: 04/10/17 TIME: 13:44 Assessment/Plan Assessment/Plan Chief Complaint/Hosp Course The patient is a 51-year-old female with past medical history of pulmonary embolism treated with coumadin for > 6 months, with recurrent bilateral pulmonary embolism while off coumadin after running out of medication two weeks ago. 1. Pulmonary embolism, bilateral, recurrent. Her first PE was unprovoked and in itself would have likely warranted lifelong anticoagulation. Given that she has had recurrent unprovoked PEs with her first clot treated with > 6 months of anticoagulation with recurrence with a few weeks of stopping coumadin, she would warrant lifelong anticoagulation regardless of hypercoagulable work-up. -.A hypercoagulable workup including protein C, protein S, lupus anticoagulant, and antithrombin III was ordered, will add beta2 glycoprotein IgM and IgG and anticardiolipin IgM and IgG. So far, patient negative for prothrombin gene mutation, factor V Leiden, lupus anticoagulant. Protein C normal, Protein S decreased but may be due to recent clot. Pending ATIII. - If patient found to be negative for antiphospholipid antibody syndrome, could switch to one of the new oral anticoaulgants such as eliquis or xarelto however , per primary team, insurance will not authorize. Will try to obtain auth for lovenox or pardaxa. Will check with case management. Patient previously on coumadin but did not have sufficient INR monitoring. - D-dimer was elevated at 682.97 - Patient started on therapeutic lovenox - LE dopplers negative; LUE doppler shows left basilic vein thrombosis, which is a superficial vein thrombus - as symptomatic may warrant anticoagulation which patient already on for PE, therefore that does not change of address clerk - Will request case management to obtain auth for pt to follow up with me upon discharge 2. History of right ovarian cyst, no car changer 5+ years per patient, CA 125 normal at 25.8. Pelvic US showed enlarged right ovary with a probable hemorrhagic cyst measuring 6.1 x 5.7 x 5.4 cm. Due to the large size, gynecologic consultation is advised. Patient should follow up with fashion photographer as an outpatient. Problems: Consultation Date/Type/Reason Admit Date/Time April 04, 2017 at 12:47 Initial Consult Date 04/04/17 Type of Consultation: Hematology 24 HR Interval Summary Free Text/Dictation Patient feels "fine," overall better. Exam/Review of Systems Vital Signs Vitals Vital Signs Date Time Temp Pulse Resp B/P Pulse Ox O2 Delivery O2 Flow Rate FiO2 04/10/17 12:00 94 04/10/17 11:05 98.2 19 117/77 100 04/10/17 10:20 21 04/10/17 07:29 Nasal Cannula 1.0 Intake and Output 04/09/17 04/09/17 04/10/17 15:00 23:00 07:00 Intake Total 900 ml 1020 ml Balance 900 ml 1020 ml Exam Constitutional: alert, oriented Head: normocephalic Neck: supple Respiratory: clear to auscultation Cardiovascular: regular rate and rhythm Gastrointestinal: non-tender, soft Musculoskeletal: nl extremities to inspection Neurological: FLORIST II-XII intact Results Result Diagram: 04/08/17 1001 04/08/17 1001 Results 24 hrs Laboratory Tests Test 04/09/17 17:07 04/09/17 21:07 04/10/17 07:24 04/10/17 12:07 Bedside Glucose 162 182 93 117 Medications Medications Current Medications Ondansetron HCl (Zofran Inj) 4 mg Q6H PRN IV NAUSEA AND/OR VOMITING; Start 04/04 at 16:00 Acetaminophen (Tylenol Tab) 650 mg Q6H PRN PO PAIN LEVEL 1-3 OR FEVER Last administered on 04/09/17 16:13; Admin Dose 650 MG; Start 04/04/17 at 16:00 Morphine Sulfate (morphine) 2 mg Q4H PRN IV SEVERE PAIN LEVEL 7-10 Last administered on 04/09/17 23:41; Admin Dose 2 MG; Start 04/04/17 at 16:00 Magnesium Hydroxide (Milk Of Mag) 30 ml DAILY PRN PO CONSTIPATION; Start at 16:00 Bisacodyl (Dulcolax) 5 mg DAILY PRN PO CONSTIPATION; Start 04/04/17 at 16:00 Famotidine (Pepcid) 20 mg Q12 PO Last administered on 04/10/17 08:14; Admin Dose 20 MG; Start 04/04/17 at 21:00 Enoxaparin Sodium (Lovenox) 75 mg Q12 SC Last administered on 04/10/17 08:17; Admin Dose 75 MG; Start 04/04/17 at 21:00 Hydralazine HCl (Apresoline) 10 mg Q6H PRN IV SBP>160; Start 04/04/17 at 16:00 Gabapentin (Neurontin) 600 mg QHS PO Last administered on 04/09/17 21:09; Admin Dose 600 MG; Start 04/04/17 at 21:00 Miscellaneous Information 1 ea NOTE XX ; Start 04/04/17 at 17:00 Glucose (Glutose) 15 gm Q15M PRN PO DECREASED GLUCOSE; Start 04/04/17 at 17:00 Glucose (Glutose) 22.5 gm Q15M PRN PO DECREASED GLUCOSE; Start 04/04/17 at 17:00 Dextrose (D50w Syringe) 25 ml Q15M PRN IV DECREASED GLUCOSE; Start 04/04/17 at 17:00 Dextrose (D50w Syringe) 50 ml Q15M PRN IV DECREASED GLUCOSE; Start 04/04/17 at 17:00 Glucagon (Glucagen) 1 mg Q15M PRN IM DECREASED GLUCOSE; Start 04/04/17 at 17:00 Glucose (Glutose) 15 gm Q15M PRN BUCCAL DECREASED GLUCOSE; Start 04/04/17 at 17: 00 Oxycodone/ Acetaminophen (Percocet (5/ 325)) 1 tab Q4H PRN PO PAIN Last administered on 04/06/17 01:44; Admin Dose 1 TAB; Start 04/05/17 at 12:00 Ciprofloxacin HCl (Ciloxan 0.3% Oph) 1 drop Q4H BOTH EYES Last administered on 04/10/17 10:51; Admin Dose 1 DROP; Start 04/06/17 at 15:00 Insulin Glargine (Lantus) 27 unit DAILY@20 SC Last administered on 04/09/17 21 :23; Admin Dose 27 UNIT; Start 04/08/17 at 20:00 ALVINO CRUZ MD April 10, 2017 13:45
--- NOTE | 2017-04-10 16:12 | PN ---
Date/Time of Note Date/Time of Note DATE: 04/10/17 TIME: 16:10 Assessment/Plan VTE Prophylaxis VTE Prophylaxis Intervention: LMWH Lines/Catheters IV C[facility]ter Type (from [facility]): Saline Lock Urinary Cath still in place: No Assessment/Plan Chief Complaint/Hosp Course Assessment and plan 1. Bilateral pulmonary embolism recurrent. Patient on therapeutic dose of Lovenox. Continue. Hematology following. Follow-up hypercoagulable study. Of note patient did have bilateral lower extremity Doppler negative for any DVT 2. Chest pain secondary to #1. Continue with analgesics. Serial troponins negative. echo did show preserved ejection fraction with EF at 65%. 3. Type 2 diabetes. Continue insulin regimen. A1c was noted at 12.1. Stable 4. Diabetic neuropathy. Continue Neurontin 5. Asthma. No active bronchospasm at this time. Continue on bronchodilators as needed 6. Right common femoral stenosis of 30-49%. Continue with anticoagulation. Vascular surgeon following 7. Iron deficiency anemia. Continue iron supplement. 8. Reported right ovarian cyst. Patient for outpatient follow-up study by STEAM PRESSURE CHAMBER OPERATOR. 9. Reported cephalgia with decreased vision. Discussed with radiology, we'll get MRI of the brain Disposition and plan: Continue anticoagulation. Follow-up on MRI of the brain for cephalgia decreased vision. Discussed plan of care with Dr. Spears Problems: Subjective 24 Hr Interval Summary Free Text/Dictation Reports having some headache and now with blurred and decreased vision. Exam/Review of Systems Vital Signs Vitals Vital Signs Date Time Temp Pulse Resp B/P Pulse Ox O2 Delivery O2 Flow Rate FiO2 04/10/17 12:00 94 04/10/17 11:05 98.2 19 117/77 100 04/10/17 10:20 21 04/10/17 07:29 Nasal Cannula 1.0 Intake and Output 04/09/17 04/09/17 04/10/17 15:00 23:00 07:00 Intake Total 900 ml 1020 ml Balance 900 ml 1020 ml Exam Constitutional: alert, oriented Psych: nl mood/affect Eyes: No icteric Neck: supple, No jvd Respiratory: clear to auscultation Cardiovascular: regular rate and rhythm Gastrointestinal: non-tender, soft Musculoskeletal: nl extremities to inspection Extremities: normal pulses Neurological: nl mental status, nl speech Skin: nl turgor Results Result Diagram: 04/08/17 1001 04/08/17 1001 Results 24 hrs Laboratory Tests Test 04/09/17 17:07 04/09/17 21:07 04/10/17 07:24 04/10/17 12:07 Bedside Glucose 162 182 93 117 Medications Medications Current Medications Ondansetron HCl (Zofran Inj) 4 mg Q6H PRN IV NAUSEA AND/OR VOMITING; Start 04/04 at 16:00 Acetaminophen (Tylenol Tab) 650 mg Q6H PRN PO PAIN LEVEL 1-3 OR FEVER Last administered on 04/09/17 16:13; Admin Dose 650 MG; Start 04/04/17 at 16:00 Morphine Sulfate (morphine) 2 mg Q4H PRN IV SEVERE PAIN LEVEL 7-10 Last administered on 04/09/17 23:41; Admin Dose 2 MG; Start 04/04/17 at 16:00 Magnesium Hydroxide (Milk Of Mag) 30 ml DAILY PRN PO CONSTIPATION; Start at 16:00 Bisacodyl (Dulcolax) 5 mg DAILY PRN PO CONSTIPATION; Start 04/04/17 at 16:00 Famotidine (Pepcid) 20 mg Q12 PO Last administered on 04/10/17 08:14; Admin Dose 20 MG; Start 04/04/17 at 21:00 Enoxaparin Sodium (Lovenox) 75 mg Q12 SC Last administered on 04/10/17 08:17; Admin Dose 75 MG; Start 04/04/17 at 21:00 Hydralazine HCl (Apresoline) 10 mg Q6H PRN IV SBP>160; Start 04/04/17 at 16:00 Gabapentin (Neurontin) 600 mg QHS PO Last administered on 04/09/17 21:09; Admin Dose 600 MG; Start 04/04/17 at 21:00 Miscellaneous Information 1 ea NOTE XX ; Start 04/04/17 at 17:00 Glucose (Glutose) 15 gm Q15M PRN PO DECREASED GLUCOSE; Start 04/04/17 at 17:00 Glucose (Glutose) 22.5 gm Q15M PRN PO DECREASED GLUCOSE; Start 04/04/17 at 17:00 Dextrose (D50w Syringe) 25 ml Q15M PRN IV DECREASED GLUCOSE; Start 04/04/17 at 17:00 Dextrose (D50w Syringe) 50 ml Q15M PRN IV DECREASED GLUCOSE; Start 04/04/17 at 17:00 Glucagon (Glucagen) 1 mg Q15M PRN IM DECREASED GLUCOSE; Start 04/04/17 at 17:00 Glucose (Glutose) 15 gm Q15M PRN BUCCAL DECREASED GLUCOSE; Start 04/04/17 at 17: 00 Oxycodone/ Acetaminophen (Percocet (5/ 325)) 1 tab Q4H PRN PO PAIN Last administered on 04/06/17 01:44; Admin Dose 1 TAB; Start 04/05/17 at 12:00 Ciprofloxacin HCl (Ciloxan 0.3% Oph) 1 drop Q4H BOTH EYES Last administered on 04/10/17 14:32; Admin Dose 1 DROP; Start 04/06/17 at 15:00 Insulin Glargine (Lantus) 27 unit DAILY@20 SC Last administered on 04/09/17 21 :23; Admin Dose 27 UNIT; Start 04/08/17 at 20:00 BENJAMIN ADKINS April 10, 2017 16:12
[2017-04-10] MEDS ORDERED: LORAZEPAM 2 MG INJ IM PRN (16:30)
[2017-04-10] MEDS: GABAPENTIN 300 MG CAP PO SCH (21:24)
[2017-04-10] MEDS: INSULIN GLARGINE [LANtus] 3 ML PEN SC SCH (22:03)
--- NOTE | 2017-04-10 22:05 | PN ---
Date/Time of Note Date/Time of Note DATE: 04/10/17 TIME: 22:05 Assessment/Plan Lines/Catheters IV C[facility] Type (from [facility] Saline Lock Amin in Place (from [facility]): No Assessment/Plan Chief Complaint/Hosp Course -Bilateral acute on chronic pulmonary embolism: It seems that the patient has developed atypical findings of PE without findings of lower extremity deep vein thrombosis. She does present with what seems to be a hypercoagulable state; however, I do not have any of her records from [facility] from when she originally was diagnosed. However, current blood work is pending and will follow up with our hematology colleagues. From my standpoint, it seems that the Coumadin is not a viable choice as it requires the patient follow up and INR monitoring, perhaps we can start her on a newer medication that would be acceptable to our hematology colleagues and for the patient to be more compliant with. -Sickle cell anemia: The patient has a strong family history of sickle cell anemia. Would recommend obtaining genetic blood work and testing in order to see if she has the trait or if she is a carrier. -Right common femoral artery stenosis: Based on ultrasound findings, she does have some component of atherosclerotic disease. She did have a right hip injury in the past which could have caused an intimal injury. However, that is not a flow limiting finding. We will continue to follow the patient for vascular surveillance as an outpatient. -Optimize vascular status (IV fluid hydration, anticoagulation, blood pressure meds, cholesterol, sugar control, antiplatelets). -Discussed findings, plan and management with the patient and she understands with her on the phone. -Thank you for allowing us to partake in the care of your patient. Please call with any questions. Problems: Subjective 24 Hr Interval Summary Constitutional: shortness of breath Exam/Review of Systems Vital Signs Vitals Vital Signs Date Time Temp Pulse Resp B/P Pulse Ox O2 Delivery O2 Flow Rate FiO2 04/10/17 20:33 Nasal Cannula 1.0 04/10/17 20:21 99.0 102 17 126/76 95 04/10/17 10:20 21 Intake and Output 04/09/17 04/09/17 04/10/17 15:00 23:00 07:00 Intake Total 900 ml 1020 ml Balance 900 ml 1020 ml Exam Free Text/Dictation GENERAL: She is alert and oriented x3. PULMONARY: Coarse breath sounds bilaterally, crackles at the bases. CARDIOVASCULAR: S1, S2 present. ABDOMEN: Soft, nontender, nondistended. Bowel sounds positive. EXTREMITIES: Right lower extremity palpable femoral pulse, nonpalpable pedal pulse. Motor, sensory intact. Cap refill 3 seconds. She does have flat feet and she does have some component of lipodermatosclerosis. Left lower extremity palpable femoral pulse, nonpalpable pedal pulse. Motor, sensory intact. Cap refill 3 to 4 seconds, presence of lipodermatosclerosis. No ulcers. LUE: palpable brachial pulse, motor/sensory intact, cap refill 3 seconds Results Result Diagram: 04/08/17 1001 04/08/17 1001 WENDIE BRUNO MD April 10, 2017 22:05 WENDIE BRUNO MD April 10, 2017 22:05
--- NOTE | 2017-04-10 23:52 | RADRPT ---
PROCEDURE: MRI Brain without contrast. CLINICAL INDICATION: 51-year-old female with bilateral PE, suspected cerebral/orbital thrombus. TECHNIQUE: An MRI of the brain was performed without contrast utilizing the following sequences: Sagittal T1 weighted, sagittal FLAIR, axial T1, axial FLAIR, axial T2 weighted, axial diffusion weig hted (EPI technique [id number]), axial ADC mapping. The images were reviewed on a high-resolution PACS workstation. COMPARISON: No prior studies are available for comparison. FINDINGS: The images are slightly degraded by motion artifact. Diffusion weighted sequences demonstrate no ev idence of acute lacunar or lobar infarction. There is no intracranial hemorrhage, extra-axial fluid collection, mass lesion, midline shift or hydrocephalous. The ventricles, sulci and cisterns are n ormal in size and configuration. The basal cisterns are patent. The signal intensity is normal thro ughout the cerebrum, brain stem and cerebellum. Normal flow voids are visible the proximal intracra nial arteries and dural sinuses, indicating patency. The midline structures are intact. There are mild inflammatory changes of the bilateral maxillary sinuses, left segments ethmoid air ce lls. The mastoid air cells and middle ear cavities are normally aerated. The orbits, calvarium and extracranial soft tissues are normal in appearance. IMPRESSION: 1. No acute intracranial abnormality. No intracranial hemorrhage, mass lesion, infarction or hydro cephalous. RPTAT: HGAS .Romel Varma MD, MD Date Time Electronically viewed and signed by .Romel Varma MD, MD on 04/10/2017 23:52 .S/
[2017-04-11] VITALS (12 sets, daily range): BP systolic 98–117; BP diastolic 54–70; PULSE 78–100; RESP 17–19
[2017-04-11 02:21] LABS: B2 GLYCOPROTEIN I AB (IGA) <9 SAU (< OR = 20); B2 GLYCOPROTEIN I AB (IGG) 25 SGU (< OR = 20); B2 GLYCOPROTEIN I AB (IGM) <9 SMU (< OR = 20)
[2017-04-11] MEDS: CIPROFLOXACIN 0.3% 2.5 ML OPH BOTH EYES SCH ×6 (03:00→22:53)
[2017-04-11] MEDS: morphine 2 MG INJ IV PRN (04:30)
[2017-04-11] MEDS: OXYCODONE/ACETAMINOPHEN (5/325) TAB PO PRN (05:50)
[2017-04-11] MEDS: FAMOTIDINE 20 MG TAB PO SCH ×2 (08:02→20:10)
[2017-04-11] MEDS: INSULIN ASPART [NOVOLOG] 3 ML PEN SC SCH ×7 (08:08→20:10)
[2017-04-11] MEDS: ENOXAPARIN 80 MG/0.8 ML SYG SC SCH ×2 (08:08→20:24)
--- NOTE | 2017-04-11 09:24 | CONS ---
Date/Time of Note Date/Time of Note DATE: 04/11/17 TIME: : Assessment/Plan Assessment/Plan Chief Complaint/Hosp Course The patient is a 51-year-old female with past medical history of pulmonary embolism treated with coumadin for > 6 months, with recurrent bilateral pulmonary embolism while off coumadin after running out of medication two weeks ago. 1. Pulmonary embolism, bilateral, recurrent. Her first PE was unprovoked and in itself would have likely warranted lifelong anticoagulation. Given that she has had recurrent unprovoked PEs with her first clot treated with > 6 months of anticoagulation with recurrence with a few weeks of stopping coumadin, she would warrant lifelong anticoagulation regardless of hypercoagulable work-up. - Patient started on therapeutic lovenox - A hypercoagulable workup including protein C, protein S, lupus anticoagulant, and antithrombin III was ordered, will add beta2 glycoprotein IgM and IgG and anticardiolipin IgM and IgG. So far, patient negative for prothrombin gene mutation, factor V Leiden, lupus anticoagulant. Protein C normal, Protein S decreased but may be due to recent clot. Pending ATIII. Beta2 glycoprotein IgG and anticardiolipin IgG are positive, suggesting antiphosphlolipid antibody syndrome. Would need to repeat in 12 weeks to confirm, however given possible APLA syndrome would recommend coumadin rather than one of the new oral anticoagulants. Patient will need to be started on coumadin with lovenox bridge. Will order coumadin 5 mg daily and daily INR. Patient previously on coumadin but did not have sufficient INR monitoring. Will check with case management regarding a safe discharge with INR checks. - Will order SHAWNA as patient was told that she may have an autoimmune disorder in the past such as lupus or MS. - D-dimer was elevated at 682.97 - LE dopplers negative; LUE doppler shows left basilic vein thrombosis, which is a superficial vein thrombus - as symptomatic may warrant anticoagulation which patient already on for PE, therefore that does not change manager - Will request case management to obtain auth for pt to follow up with me upon discharge 2. History of right ovarian cyst, no blade changer 5+ years per patient, CA 125 normal at 25.8. Pelvic US showed enlarged right ovary with a probable hemorrhagic cyst measuring 6.1 x 5.7 x 5.4 cm. Due to the large size, gynecologic consultation is advised. Patient should follow up with leak operator paraffin plant as an outpatient. 3. Family history of sickle cell disease. Will order hemoglobin electrophoresis. Problems: Consultation Date/Type/Reason Admit Date/Time April 04, 2017 at 12:47 Initial Consult Date 04/04/17 Type of Consultation: Hematology 24 HR Interval Summary Free Text/Dictation Patient is doing well, states that she is "starting to function." She states that she was told in the past that she may have lupus or MS but never confirmed. Exam/Review of Systems Vital Signs Vitals Vital Signs Date Time Temp Pulse Resp B/P Pulse Ox O2 Delivery O2 Flow Rate FiO2 04/11/17 08:21 78 04/11/17 07:33 98.2 19 104/64 100 04/10/17 20:33 Nasal Cannula 1.0 04/10/17 10:20 21 Intake and Output 04/10/17 04/10/17 04/11/17 14:59 22:59 06:59 Intake Total 800 ml 900 ml Balance 800 ml 900 ml Exam Constitutional: alert, oriented Head: normocephalic Neck: supple Respiratory: clear to auscultation Cardiovascular: regular rate and rhythm Gastrointestinal: non-tender, soft Musculoskeletal: nl extremities to inspection Neurological: REVERSAL PRINT INSPECTOR II-XII intact Results Result Diagram: 04/08/17 1001 04/08/17 1001 Results 24 hrs Laboratory Tests Test 04/10/17 12:07 04/10/17 16:26 04/10/17 21:22 04/11/17 07:59 Bedside Glucose 117 168 206 218 Test 04/11/17 09:09 Lab Scanned Report REFERENCE LAB Medications Medications Current Medications Ondansetron HCl (Zofran Inj) 4 mg Q6H PRN IV NAUSEA AND/OR VOMITING; Start 04/04 at 16:00 Acetaminophen (Tylenol Tab) 650 mg Q6H PRN PO PAIN LEVEL 1-3 OR FEVER Last administered on 04/09/17 16:13; Admin Dose 650 MG; Start 04/04/17 at 16:00 Morphine Sulfate (morphine) 2 mg Q4H PRN IV SEVERE PAIN LEVEL 7-10 Last administered on 04/11/17 04:30; Admin Dose 2 MG; Start 04/04/17 at 16:00 Magnesium Hydroxide (Milk Of Mag) 30 ml DAILY PRN PO CONSTIPATION; Start at 16:00 Bisacodyl (Dulcolax) 5 mg DAILY PRN PO CONSTIPATION; Start 04/04/17 at 16:00 Famotidine (Pepcid) 20 mg Q12 PO Last administered on 04/11/17 08:02; Admin Dose 20 MG; Start 04/04/17 at 21:00 Enoxaparin Sodium (Lovenox) 75 mg Q12 SC Last administered on 04/11/17 08:08; Admin Dose 75 MG; Start 04/04/17 at 21:00 Hydralazine HCl (Apresoline) 10 mg Q6H PRN IV SBP>160; Start 04/04/17 at 16:00 Gabapentin (Neurontin) 600 mg QHS PO Last administered on 04/10/17 21:24; Admin Dose 600 MG; Start 04/04/17 at 21:00 Miscellaneous Information 1 ea NOTE XX ; Start 04/04/17 at 17:00 Glucose (Glutose) 15 gm Q15M PRN PO DECREASED GLUCOSE; Start 04/04/17 at 17:00 Glucose (Glutose) 22.5 gm Q15M PRN PO DECREASED GLUCOSE; Start 04/04/17 at 17:00 Dextrose (D50w Syringe) 25 ml Q15M PRN IV DECREASED GLUCOSE; Start 04/04/17 at 17:00 Dextrose (D50w Syringe) 50 ml Q15M PRN IV DECREASED GLUCOSE; Start 04/04/17 at 17:00 Glucagon (Glucagen) 1 mg Q15M PRN IM DECREASED GLUCOSE; Start 04/04/17 at 17:00 Glucose (Glutose) 15 gm Q15M PRN BUCCAL DECREASED GLUCOSE; Start 04/04/17 at 17: 00 Oxycodone/ Acetaminophen (Percocet (5/ 325)) 1 tab Q4H PRN PO PAIN Last administered on 04/11/17 05:50; Admin Dose 1 TAB; Start 04/05/17 at 12:00 Ciprofloxacin HCl (Ciloxan 0.3% Oph) 1 drop Q4H BOTH EYES Last administered on 04/11/17 08:00; Admin Dose 1 DROP; Start 04/06/17 at 15:00 Insulin Glargine (Lantus) 27 unit DAILY@20 SC Last administered on 04/10/17 22 :03; Admin Dose 27 UNIT; Start 04/08/17 at 20:00 Lorazepam (Ativan) 1 mg Q6H PRN IM anxiety Last administered on 04/10/17t 17: 12; Admin Dose 1 MG; Start 04/10/17 at 16:30 TOALVINO MD April 11, 2017 09:24
[2017-04-11] MEDS: ONDANSETRON 4 MG INJ IV PRN (11:58)
[2017-04-11] MEDS: ACETAMINOPHEN 325 MG TAB PO PRN (12:00)
[2017-04-11] MEDS ORDERED: ACET/BUTAL/CAFF/CODEINE CAP PO PRN (16:00)
--- NOTE | 2017-04-11 16:50 | PN ---
Date/Time of Note Date/Time of Note DATE: 04/11/17 TIME: 16:47 Assessment/Plan VTE Prophylaxis VTE Prophylaxis Intervention: LMWH Lines/Catheters IV C[facility]ter Type (from [facility]): Saline Lock Urinary Cath still in place: No Assessment/Plan Chief Complaint/Hosp Course Assessment and plan 1. Bilateral pulmonary embolism recurrent. Patient on therapeutic dose of Lovenox. Continue. Hematology following. plan to bridge patient to coumadin. doppler ble negative for DVT 2. Chest pain secondary to #1. Continue with analgesics. Serial troponins negative. echo did show preserved ejection fraction with EF at 65%. 3. Type 2 diabetes. Continue insulin regimen. A1c was noted at 12.1. Stable 4. Diabetic neuropathy. Continue Neurontin 5. Asthma. No active bronchospasm at this time. Continue on bronchodilators as needed 6. Right common femoral stenosis of 30-49%. Continue with anticoagulation. Vascular surgeon following 7. Iron deficiency anemia. Continue iron supplement. 8. Reported right ovarian cyst. Patient for outpatient follow-up study by FAMILY SERVICE WORKER. 9. Reported cephalgia with decreased vision. MRI of the brain negative for any acute finding. Monitor for now. Improved Disposition and plan: patient to be bridged to coumadin. await therapeutic level. d/c when medically stable. case management following for home health services Discussed plan of care with Dr. Spears Problems: Subjective 24 Hr Interval Summary Free Text/Dictation comfortable at present. no apparent distress Exam/Review of Systems Vital Signs Vitals Vital Signs Date Time Temp Pulse Resp B/P Pulse Ox O2 Delivery O2 Flow Rate FiO2 04/11/17 16:33 84 04/11/17 15:52 98.2 18 101/55 99 04/10/17 20:33 Nasal Cannula 1.0 04/10/17 10:20 21 Intake and Output 04/10/17 04/10/17 04/11/17 15:00 23:00 07:00 Intake Total 800 ml 900 ml Balance 800 ml 900 ml Exam Constitutional: alert, oriented Psych: nl mood/affect Head: normocephalic Neck: supple Respiratory: clear to auscultation Cardiovascular: regular rate and rhythm Gastrointestinal: non-tender, soft Musculoskeletal: nl extremities to inspection Neurological: nl mental status, nl speech Skin: nl turgor Results Result Diagram: 04/08/17 1001 04/08/17 1001 Results 24 hrs Laboratory Tests Test 04/10/17 21:22 04/11/17 07:59 04/11/17 09:09 04/11/17 09:48 Bedside Glucose 206 218 Lab Scanned Report REFERENCE LAB Sickle Cells NEGATIVE Test 04/11/17 11:59 Bedside Glucose 93 Medications Medications Current Medications Ondansetron HCl (Zofran Inj) 4 mg Q6H PRN IV NAUSEA AND/OR VOMITING Last administered on 04/11/17 11:58; Admin Dose 4 MG; Start 04/04/17 at 16:00 Acetaminophen (Tylenol Tab) 650 mg Q6H PRN PO PAIN LEVEL 1-3 OR FEVER Last administered on 04/11/17 12:00; Admin Dose 650 MG; Start 04/04/17 at 16:00 Morphine Sulfate (morphine) 2 mg Q4H PRN IV SEVERE PAIN LEVEL 7-10 Last administered on 04/11/17 04:30; Admin Dose 2 MG; Start 04/04/17 at 16:00 Magnesium Hydroxide (Milk Of Mag) 30 ml DAILY PRN PO CONSTIPATION; Start at 16:00 Bisacodyl (Dulcolax) 5 mg DAILY PRN PO CONSTIPATION; Start 04/04/17 at 16:00 Famotidine (Pepcid) 20 mg Q12 PO Last administered on 04/11/17 08:02; Admin Dose 20 MG; Start 04/04/17 at 21:00 Enoxaparin Sodium (Lovenox) 75 mg Q12 SC Last administered on 04/11/17 08:08; Admin Dose 75 MG; Start 04/04/17 at 21:00 Hydralazine HCl (Apresoline) 10 mg Q6H PRN IV SBP>160; Start 04/04/17 at 16:00 Gabapentin (Neurontin) 600 mg QHS PO Last administered on 04/10/17 21:24; Admin Dose 600 MG; Start 04/04/17 at 21:00 Miscellaneous Information 1 ea NOTE XX ; Start 04/04/17 at 17:00 Glucose (Glutose) 15 gm Q15M PRN PO DECREASED GLUCOSE; Start 04/04/17 at 17:00 Glucose (Glutose) 22.5 gm Q15M PRN PO DECREASED GLUCOSE; Start 04/04/17 at 17:00 Dextrose (D50w Syringe) 25 ml Q15M PRN IV DECREASED GLUCOSE; Start 04/04/17 at 17:00 Dextrose (D50w Syringe) 50 ml Q15M PRN IV DECREASED GLUCOSE; Start 04/04/17 at 17:00 Glucagon (Glucagen) 1 mg Q15M PRN IM DECREASED GLUCOSE; Start 04/04/17 at 17:00 Glucose (Glutose) 15 gm Q15M PRN BUCCAL DECREASED GLUCOSE; Start 04/04/17 at 17: 00 Oxycodone/ Acetaminophen (Percocet (5/ 325)) 1 tab Q4H PRN PO PAIN Last administered on 04/11/17 05:50; Admin Dose 1 TAB; Start 04/05/17 at 12:00 Ciprofloxacin HCl (Ciloxan 0.3% Oph) 1 drop Q4H BOTH EYES Last administered on 04/11/17 15:17; Admin Dose 1 DROP; Start 04/06/17 at 15:00 Insulin Glargine (Lantus) 27 unit DAILY@20 SC Last administered on 04/10/17 22 :03; Admin Dose 27 UNIT; Start 04/08/17 at 20:00 Lorazepam (Ativan) 1 mg Q6H PRN IM anxiety Last administered on 04/10/17 17: 12; Admin Dose 1 MG; Start 04/10/17 at 16:30 Warfarin Sodium (Coumadin) 5 mg DAILY@17 PO ; Start 04/11/17 at 17:00 Acetam/Butalbital/ Caffeine/Codeine (Fioricet/ Codeine) 2 cap Q4H PRN PO SEVERE PAIN LEVEL 7-10; Start 04/11/17 at 16:00 BENJAMIN ADKINS April 11, 2017 16:50
[2017-04-11] MEDS: WARFARIN 5 MG TAB PO SCH (16:52)
[2017-04-11] MEDS: GABAPENTIN 300 MG CAP PO SCH (20:10)
[2017-04-11] MEDS: INSULIN GLARGINE [LANtus] 3 ML PEN SC SCH (20:17)
[2017-04-12] VITALS (11 sets, daily range): BP systolic 101–121; BP diastolic 56–69; PULSE 83–103; RESP 18–20
[2017-04-12] MEDS: morphine 2 MG INJ IV PRN (02:15)
[2017-04-12] MEDS: CIPROFLOXACIN 0.3% 2.5 ML OPH BOTH EYES SCH ×6 (02:15→22:47)
[2017-04-12] MEDS: INSULIN ASPART [NOVOLOG] 3 ML PEN SC SCH ×7 (08:03→21:00)
[2017-04-12] MEDS: ENOXAPARIN 80 MG/0.8 ML SYG SC SCH ×2 (08:03→20:26)
[2017-04-12] MEDS: FAMOTIDINE 20 MG TAB PO SCH ×2 (08:05→20:22)
[2017-04-12 08:06] LABS: INR 0.97; PROTIME 12.9 Sec (12.2-14.2)
--- NOTE | 2017-04-12 12:17 | CONS ---
Date/Time of Note Date/Time of Note DATE: 04/12/17 TIME: 12:15 Assessment/Plan Assessment/Plan Chief Complaint/Hosp Course The patient is a 51-year-old female with past medical history of pulmonary embolism treated with coumadin for > 6 months, with recurrent bilateral pulmonary embolism while off coumadin after running out of medication two weeks ago. 1. Pulmonary embolism, bilateral, recurrent. Her first PE was unprovoked and in itself would have likely warranted lifelong anticoagulation. Given that she has had recurrent unprovoked PEs with her first clot treated with > 6 months of anticoagulation with recurrence with a few weeks of stopping coumadin, she would warrant lifelong anticoagulation regardless of hypercoagulable work-up. - Patient started on therapeutic lovenox - A hypercoagulable workup including protein C, protein S, lupus anticoagulant, and antithrombin III was ordered, will add beta2 glycoprotein IgM and IgG and anticardiolipin IgM and IgG. So far, patient negative for prothrombin gene mutation, factor V Leiden, lupus anticoagulant. Protein C normal, Protein S decreased but may be due to recent clot. Pending ATIII. Beta2 glycoprotein IgG and anticardiolipin IgG are positive, suggesting antiphosphlolipid antibody syndrome. Would need to repeat in 12 weeks to confirm, however given possible APLA syndrome would recommend Coumadin rather than one of the new oral anticoagulants. Patient will need to be started on coumadin with lovenox bridge. Will order coumadin 5 mg daily and daily INR. Patient previously on Coumadin but did not have sufficient INR monitoring. Will check with case management regarding a safe discharge with INR checks. - Will order SHAWNA as patient was told that she may have an autoimmune disorder in the past such as lupus or MS. 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 History of right ovarian cyst, no exchange teller 5+ years per patient, CA 125 normal at 25.8. Pelvic US showed enlarged right ovary with a probable hemorrhagic cyst measuring 6.1 x 5.7 x 5.4 cm. Due to the large size, gynecologic consultation is advised. Patient should follow up with heat and frost insulator helper as an outpatient. 3. Family history of sickle cell disease. Will order hemoglobin electrophoresis. Problems: Consultation Date/Type/Reason Admit Date/Time April 04, 2017 at 12:47 Initial Consult Date 04/04/17 Type of Consultation: Hematology Reason for Consultation antiphospholipid syndrome Referring Provider: GERALD TAYLOR 24 HR Interval Summary Free Text/Dictation pt was started on coumadin Exam/Review of Systems Vital Signs Vitals Vital Signs Date Time Temp Pulse Resp B/P Pulse Ox O2 Delivery O2 Flow Rate FiO2 04/12/17 08:21 89 04/12/17 07:13 98.1 18 102/60 98 04/10/17 20:33 Nasal Cannula 1.0 04/10/17 10:20 21 Intake and Output 04/11/17 04/11/17 04/12/17 15:00 23:00 07:00 Intake Total 800 ml 500 ml Balance 800 ml 500 ml Exam Constitutional: alert, oriented Psych: nl mood/affect, no complaints Head: atraumatic, normocephalic Eyes: nl conjunctiva ENMT: nl external ears & nose Neck: non-tender, supple Respiratory: clear to auscultation, normal air movement Cardiovascular: regular rate and rhythm Gastrointestinal: soft Musculoskeletal: nl extremities to inspection Results Result Diagram: 04/08/17 1001 04/08/17 1001 Results 24 hrs Laboratory Tests Test 04/11/17 16:53 04/11/17 20:08 04/12/17 06:50 04/12/17 07:55 Bedside Glucose 188 158 225 H Prothrombin Time 12.9 Prothrombin Time Ratio 1.0 INR International Normalized Ratio 0.97 Test 04/12/17 11:26 Bedside Glucose 186 Medications Medications Current Medications Ondansetron HCl (Zofran Inj) 4 mg Q6H PRN IV NAUSEA AND/OR VOMITING Last administered on 04/11/17 11:58; Admin Dose 4 MG; Start 04/04/17 at 16:00 Acetaminophen (Tylenol Tab) 650 mg Q6H PRN PO PAIN LEVEL 1-3 OR FEVER Last administered on 04/11/17 12:00; Admin Dose 650 MG; Start 04/04/17 at 16:00 Morphine Sulfate (morphine) 2 mg Q4H PRN IV SEVERE PAIN LEVEL 7-10 Last administered on 04/12/17 02:15; Admin Dose 2 MG; Start 04/04/17 at 16:00 Magnesium Hydroxide (Milk Of Mag) 30 ml DAILY PRN PO CONSTIPATION; Start at 16:00 Bisacodyl (Dulcolax) 5 mg DAILY PRN PO CONSTIPATION; Start 04/04/17 at 16:00 Famotidine (Pepcid) 20 mg Q12 PO Last administered on 04/12/17 08:05; Admin Dose 20 MG; Start 04/04/17 at 21:00 Enoxaparin Sodium (Lovenox) 75 mg Q12 SC Last administered on 04/12/17 08:03; Admin Dose 75 MG; Start 04/04/17 at 21:00 Hydralazine HCl (Apresoline) 10 mg Q6H PRN IV SBP>160; Start 04/04/17 at 16:00 Gabapentin (Neurontin) 600 mg QHS PO Last administered on 04/11/17 20:10; Admin Dose 600 MG; Start 04/04/17 at 21:00 Miscellaneous Information 1 ea NOTE XX ; Start 04/04/17 at 17:00 Glucose (Glutose) 15 gm Q15M PRN PO DECREASED GLUCOSE; Start 04/04/17 at 17:00 Glucose (Glutose) 22.5 gm Q15M PRN PO DECREASED GLUCOSE; Start 04/04/17 at 17:00 Dextrose (D50w Syringe) 25 ml Q15M PRN IV DECREASED GLUCOSE; Start 04/04/17 at 17:00 Dextrose (D50w Syringe) 50 ml Q15M PRN IV DECREASED GLUCOSE; Start 04/04/17 at 17:00 Glucagon (Glucagen) 1 mg Q15M PRN IM DECREASED GLUCOSE; Start 04/04/17 at 17:00 Glucose (Glutose) 15 gm Q15M PRN BUCCAL DECREASED GLUCOSE; Start 04/04/17 at 17: 00 Oxycodone/ Acetaminophen (Percocet (5/ 325)) 1 tab Q4H PRN PO PAIN Last administered on 04/11/17 05:50; Admin Dose 1 TAB; Start 04/05/17 at 12:00 Ciprofloxacin HCl (Ciloxan 0.3% Oph) 1 drop Q4H BOTH EYES Last administered on 04/12/17 11:29; Admin Dose 1 DROP; Start 04/06/17 at 15:00 Insulin Glargine (Lantus) 27 unit DAILY@20 SC Last administered on 04/11/17 20 :17; Admin Dose 27 UNIT; Start 04/08/17 at 20:00 Lorazepam (Ativan) 1 mg Q6H PRN IM anxiety Last administered on 04/10/17 17: 12; Admin Dose 1 MG; Start 04/10/17 at 16:30 Warfarin Sodium (Coumadin) 5 mg DAILY@17 PO Last administered on 04/11/17 16: 52; Admin Dose 5 MG; Start 04/11/17 at 17:00 Acetam/Butalbital/ Caffeine/Codeine (Fioricet/ Codeine) 2 cap Q4H PRN PO SEVERE PAIN LEVEL 7-10; Start 04/11/17 at 16:00 KELVIN KEENAN M.D. April 12, 2017 12:17
--- NOTE | 2017-04-12 15:56 | PN ---
Date/Time of Note Date/Time of Note DATE: 04/12/17 TIME: 15:54 Assessment/Plan VTE Prophylaxis VTE Prophylaxis Intervention: other (warfarin) Lines/Catheters IV Catheter Type (from Nrs): [facility] Urinary Cath still in place: No Assessment/Plan Chief Complaint/Hosp Course Assessment and plan 1. Bilateral pulmonary embolism recurrent. Patient on therapeutic dose of Lovenox. bridge to coumadin. Hematology following. Of note patient did have bilateral lower extremity Doppler negative for any DVT 2. Chest pain secondary to #1. Continue with analgesics. Serial troponins negative. echo did show preserved ejection fraction with EF at 65%. 3. Type 2 diabetes. Continue insulin regimen. A1c was noted at 12.1. Stable 4. Diabetic neuropathy. Continue Neurontin 5. Asthma. No active bronchospasm at this time. Continue on bronchodilators as needed. stable 6. Right common femoral stenosis of 30-49%. Continue with anticoagulation. Vascular surgeon following 7. Iron deficiency anemia. Continue iron supplement. 8. Reported right ovarian cyst. Patient for outpatient follow-up study by DIRECTOR LIFE SALES. 9. Reported cephalgia with decreased vision.MRI of the brain negative for any acute findings. improved. will monitor Disposition and plan: continue anticoagulation and awaiting therapeutic dosing of Coumadin prior to DC. Discussed plan of care with Dr. Spears Problems: Subjective 24 Hr Interval Summary Free Text/Dictation Comfortable at present. No specific complaints Exam/Review of Systems Vital Signs Vitals Vital Signs Date Time Temp Pulse Resp B/P Pulse Ox O2 Delivery O2 Flow Rate FiO2 04/12/17 15:07 98.5 93 18 121/69 100 04/10/17 20:33 Nasal Cannula 1.0 04/10/17 10:20 21 Intake and Output 04/11/17 04/11/17 04/12/17 15:00 23:00 07:00 Intake Total 800 ml 500 ml Balance 800 ml 500 ml Exam Constitutional: alert, oriented Psych: nl mood/affect Neck: No jvd Respiratory: clear to auscultation Cardiovascular: regular rate and rhythm Gastrointestinal: non-tender, soft Musculoskeletal: nl extremities to inspection Extremities: normal pulses Neurological: nl mental status, nl speech Results Result Diagram: 04/08/17 1001 04/08/17 1001 Results 24 hrs Laboratory Tests Test 04/11/17 16:53 04/11/17 20:08 04/12/17 06:50 04/12/17 07:55 Bedside Glucose 188 158 225 H Prothrombin Time 12.9 Prothrombin Time Ratio 1.0 INR International Normalized Ratio 0.97 Test 04/12/17 11:26 Bedside Glucose 186 Medications Medications Current Medications Ondansetron HCl (Zofran Inj) 4 mg Q6H PRN IV NAUSEA AND/OR VOMITING Last administered on 04/11/17 11:58; Admin Dose 4 MG; Start 04/04/17 at 16:00 Acetaminophen (Tylenol Tab) 650 mg Q6H PRN PO PAIN LEVEL 1-3 OR FEVER Last administered on 04/11/17 12:00; Admin Dose 650 MG; Start 04/04/17 at 16:00 Morphine Sulfate (morphine) 2 mg Q4H PRN IV SEVERE PAIN LEVEL 7-10 Last administered on 04/12/17 02:15; Admin Dose 2 MG; Start 04/04/17 at 16:00 Magnesium Hydroxide (Milk Of Mag) 30 ml DAILY PRN PO CONSTIPATION Last administered on 04/12/17 15:00; Admin Dose 30 ML; Start 04/04/17 at 16:00 Bisacodyl (Dulcolax) 5 mg DAILY PRN PO CONSTIPATION; Start 04/04/17 at 16:00 Famotidine (Pepcid) 20 mg Q12 PO Last administered on 04/12/17 08:05; Admin Dose 20 MG; Start 04/04/17 at 21:00 Enoxaparin Sodium (Lovenox) 75 mg Q12 SC Last administered on 04/12/17 08:03; Admin Dose 75 MG; Start 04/04/17 at 21:00 Hydralazine HCl (Apresoline) 10 mg Q6H PRN IV SBP>160; Start 04/04/17 at 16:00 Gabapentin (Neurontin) 600 mg QHS PO Last administered on 04/11/17 20:10; Admin Dose 600 MG; Start 04/04/17 at 21:00 Miscellaneous Information 1 ea NOTE XX ; Start 04/04/17 at 17:00 Glucose (Glutose) 15 gm Q15M PRN PO DECREASED GLUCOSE; Start 04/04/17 at 17:00 Glucose (Glutose) 22.5 gm Q15M PRN PO DECREASED GLUCOSE; Start 04/04/17 at 17:00 Dextrose (D50w Syringe) 25 ml Q15M PRN IV DECREASED GLUCOSE; Start 04/04/17 at 17:00 Dextrose (D50w Syringe) 50 ml Q15M PRN IV DECREASED GLUCOSE; Start 04/04/17 at 17:00 Glucagon (Glucagen) 1 mg Q15M PRN IM DECREASED GLUCOSE; Start 04/04/17 at 17:00 Glucose (Glutose) 15 gm Q15M PRN BUCCAL DECREASED GLUCOSE; Start 04/04/17 at 17: 00 Oxycodone/ Acetaminophen (Percocet (5/ 325)) 1 tab Q4H PRN PO PAIN Last administered on 04/11/17 05:50; Admin Dose 1 TAB; Start 04/05/17 at 12:00 Ciprofloxacin HCl (Ciloxan 0.3% Oph) 1 drop Q4H BOTH EYES Last administered on 04/12/17 15:00; Admin Dose 1 DROP; Start 04/06/17 at 15:00 Insulin Glargine (Lantus) 27 unit DAILY@20 SC Last administered on 04/11/17 20 :17; Admin Dose 27 UNIT; Start 04/08/17 at 20:00 Lorazepam (Ativan) 1 mg Q6H PRN IM anxiety Last administered on 04/10/17 17: 12; Admin Dose 1 MG; Start 04/10/17 at 16:30 Warfarin Sodium (Coumadin) 5 mg DAILY@17 PO Last administered on 04/11/17 16: 52; Admin Dose 5 MG; Start 04/11/17 at 17:00 Acetam/Butalbital/ Caffeine/Codeine (Fioricet/ Codeine) 2 cap Q4H PRN PO SEVERE PAIN LEVEL 7-10; Start 04/11/17 at 16:00 BENJAMIN ADKINS April 12, 2017 15:56
[2017-04-12] MEDS: WARFARIN 5 MG TAB PO SCH (17:06)
[2017-04-12] MEDS: GABAPENTIN 300 MG CAP PO SCH (20:22)
[2017-04-12] MEDS: INSULIN GLARGINE [LANtus] 3 ML PEN SC SCH (20:26)
[2017-04-12] MEDS: ACETAMINOPHEN 325 MG TAB PO PRN (21:17)
[2017-04-13] MEDS: CIPROFLOXACIN 0.3% 2.5 ML OPH BOTH EYES SCH ×6 (03:00→22:31)
[2017-04-13 04:37] LABS: HEMATOCRIT 39.1 % (35.0-45.0); HEMOGLOBIN 12.2 g/dL (11.7-15.5); MCH 24.2 pg (27.0-33.0); MCV 77.6 fL (80.0-100.0); RDW 15.4 % (11.0-15.0); RED BLOOD CELL COUNT 5.04 Million/uL (3.80-5.10)
[2017-04-13 05:57] LABS: PROTIME 13.2 Sec (12.2-14.2)
[2017-04-13] MEDS: INSULIN ASPART [NOVOLOG] 3 ML PEN SC SCH ×7 (07:50→20:31)
[2017-04-13 07:53] VITALS: BP 101/62; RESP 16
[2017-04-13] MEDS: FAMOTIDINE 20 MG TAB PO SCH ×2 (08:52→20:25)
[2017-04-13] MEDS: ENOXAPARIN 80 MG/0.8 ML SYG SC SCH ×2 (08:55→20:29)
[2017-04-13] MEDS: ACETAMINOPHEN 325 MG TAB PO PRN ×2 (12:45→17:55)
--- NOTE | 2017-04-13 15:16 | PN ---
Date/Time of Note Date/Time of Note DATE: 04/13/17 TIME: 15:12 Assessment/Plan VTE Prophylaxis VTE Prophylaxis Intervention: other (warfarin) Lines/Catheters IV [facility]from [facility] Urinary Cath still in place: No Assessment/Plan Chief Complaint/Hosp Course Assessment and plan 1. Bilateral pulmonary embolism recurrent. Patient on therapeutic dose of Lovenox. Continue. Hematology following. plan to bridge patient to coumadin. doppler ble negative for DVT 2. Chest pain secondary to #1. Continue with analgesics. Serial troponins negative. echo did show preserved ejection fraction with EF at 65%. 3. Type 2 diabetes. Continue insulin regimen. A1c was noted at 12.1. Stable 4. Diabetic neuropathy. Continue Neurontin 5. Asthma. No active bronchospasm at this time. Continue on bronchodilators as needed 6. Right common femoral stenosis of 30-49%. Continue with anticoagulation. Vascular surgeon following 7. Iron deficiency anemia. Continue iron supplement. 8. Reported right ovarian cyst. Patient for outpatient follow-up study by PROGRAM EVALUATOR. 9. Reported cephalgia with decreased vision. MRI of the brain negative for any acute finding. Monitor for now. Improved Disposition and plan: patient to be bridged to coumadin. await therapeutic level. dosing per hematology. d/c once therapeutic on coumadin Discussed plan of care with Dr. Spears Problems: Subjective 24 Hr Interval Summary Free Text/Dictation no dyspnea. no specific complaints Exam/Review of Systems Vital Signs Vitals Vital Signs Date Time Temp Pulse Resp B/P Pulse Ox O2 Delivery O2 Flow Rate FiO2 04/13/17 07:53 98.3 82 16 101/62 99 04/12/17 17:45 21 04/10/17 20:33 Nasal Cannula 1.0 Intake and Output 04/12/17 04/12/17 04/13/17 15:00 23:00 07:00 Intake Total 720 ml 720 ml Balance 720 ml 720 ml Exam Constitutional: alert, oriented Psych: nl mood/affect Head: normocephalic Eyes: nl conjunctiva Neck: No jvd Respiratory: clear to auscultation, normal air movement Cardiovascular: nl pulses, regular rate and rhythm Gastrointestinal: non-tender, soft Musculoskeletal: nl extremities to inspection, nl gait and stance Extremities: normal pulses Neurological: BUSINESS SUPPORT ASSISTANT II-XII intact, nl mental status, nl speech Results Results 24 hrs Laboratory Tests Test 04/12/17 16:55 04/12/17 20:11 04/13/17 04:51 04/13/17 08:49 Bedside Glucose 125 135 87 Prothrombin Time 13.2 Prothrombin Time Ratio 1.0 INR International Normalized Ratio 1.00 Test 04/13/17 12:32 Bedside Glucose 258 H Medications Medications Current Medications Ondansetron HCl (Zofran Inj) 4 mg Q6H PRN IV NAUSEA AND/OR VOMITING Last administered on 04/11/17 11:58; Admin Dose 4 MG; Start 04/04/17 at 16:00 Acetaminophen (Tylenol Tab) 650 mg Q6H PRN PO PAIN LEVEL 1-3 OR FEVER Last administered on 04/13/17 12:45; Admin Dose 650 MG; Start 04/04/17 at 16:00 Morphine Sulfate (morphine) 2 mg Q4H PRN IV SEVERE PAIN LEVEL 7-10 Last administered on 04/12/17 02:15; Admin Dose 2 MG; Start 04/04/17 at 16:00 Magnesium Hydroxide (Milk Of Mag) 30 ml DAILY PRN PO CONSTIPATION Last administered on 04/12/17 15:00; Admin Dose 30 ML; Start 04/04/17 at 16:00 Bisacodyl (Dulcolax) 5 mg DAILY PRN PO CONSTIPATION; Start 04/04/17 at 16:00 Famotidine (Pepcid) 20 mg Q12 PO Last administered on 04/13/17 08:52; Admin Dose 20 MG; Start 04/04/17 at 21:00 Enoxaparin Sodium (Lovenox) 75 mg Q12 SC Last administered on 04/13/17 08:55; Admin Dose 75 MG; Start 04/04/17 at 21:00 Hydralazine HCl (Apresoline) 10 mg Q6H PRN IV SBP>160; Start 04/04/17 at 16:00 Gabapentin (Neurontin) 600 mg QHS PO Last administered on 04/12/17 20:22; Admin Dose 600 MG; Start 04/04/17 at 21:00 Miscellaneous Information 1 ea NOTE XX ; Start 04/04/17 at 17:00 Glucose (Glutose) 15 gm Q15M PRN PO DECREASED GLUCOSE; Start 04/04/17 at 17:00 Glucose (Glutose) 22.5 gm Q15M PRN PO DECREASED GLUCOSE; Start 04/04/17 at 17:00 Dextrose (D50w Syringe) 25 ml Q15M PRN IV DECREASED GLUCOSE; Start 04/04/17 at 17:00 Dextrose (D50w Syringe) 50 ml Q15M PRN IV DECREASED GLUCOSE; Start 04/04/17 at 17:00 Glucagon (Glucagen) 1 mg Q15M PRN IM DECREASED GLUCOSE; Start 04/04/17 at 17:00 Glucose (Glutose) 15 gm Q15M PRN BUCCAL DECREASED GLUCOSE; Start 04/04/17 at 17: 00 Oxycodone/ Acetaminophen (Percocet (5/ 325)) 1 tab Q4H PRN PO PAIN Last administered on 04/11/17 05:50; Admin Dose 1 TAB; Start 04/05/17 at 12:00 Ciprofloxacin HCl (Ciloxan 0.3% Oph) 1 drop Q4H BOTH EYES Last administered on 04/13/17 12:39; Admin Dose 1 DROP; Start 04/06/17 at 15:00 Insulin Glargine (Lantus) 27 unit DAILY@20 SC Last administered on 04/12/17 20 :26; Admin Dose 27 UNIT; Start 04/08/17 at 20:00 Lorazepam (Ativan) 1 mg Q6H PRN IM anxiety Last administered on 04/10/17 17: 12; Admin Dose 1 MG; Start 04/10/17 at 16:30 Warfarin Sodium (Coumadin) 5 mg DAILY@17 PO Last administered on 04/12/17 17: 06; Admin Dose 5 MG; Start 04/11/17 at 17:00 Acetam/Butalbital/ Caffeine/Codeine (Fioricet/ Codeine) 2 cap Q4H PRN PO SEVERE PAIN LEVEL 7-10; Start 04/11/17 at 16:00 BENJAMIN ADKINS April 13, 2017 15:16
[2017-04-13] MEDS: WARFARIN 5 MG TAB PO SCH (17:47)
[2017-04-13] MEDS: GABAPENTIN 300 MG CAP PO SCH (20:25)
[2017-04-13] MEDS: INSULIN GLARGINE [LANtus] 3 ML PEN SC SCH (20:28)
[2017-04-13 20:50] VITALS: BP 97/57; RESP 16
[2017-04-13] MEDS: morphine 2 MG INJ IV PRN (23:50)
[2017-04-13] MEDS: ONDANSETRON 4 MG INJ IV PRN (23:50)
[2017-04-14] MEDS: CIPROFLOXACIN 0.3% 2.5 ML OPH BOTH EYES SCH ×6 (02:00→23:11)
[2017-04-14 05:09] LABS: ADD SCAN DIFF NO
[2017-04-14 05:17] LABS: BASOPHILS % 0.5 % (0.0-2.0); EOSINOPHILS # 0.1 10^3/ul (0.0-0.5); EOSINOPHILS % 1.7 % (0.0-7.0); HEMATOCRIT 35.2 % (37.0-47.0); HEMOGLOBIN 10.8 g/dl (12.0-16.0); LYMPHOCYTES # 2.7 10^3/ul (0.8-2.9); LYMPHOCYTES % 42.2 % (15.0-51.0); MEAN CORPUSCULAR HEMOGLOBIN 24.3 pg (29.0-33.0); MEAN CORPUSCULAR HGB CONC 30.7 g/dl (32.0-37.0); MEAN CORPUSCULAR VOLUME 79.3 fl (82.0-101.0); MEAN PLATELET VOLUME 9.9 fl (7.4-10.4); MONOCYTE # 0.5 10^3/ul (0.3-0.9); NEUTROPHIL # 2.9 10^3/ul (1.6-7.5); NEUTROPHILS % 45.2 % (39.0-77.0); PLATELET COUNT 354 10^3/UL (140-415); RED BLOOD COUNT 4.44 10^6/ul (4.20-5.40); RED CELL DISTRIBUTION WIDTH 15.3 % (11.5-14.5); WHITE BLOOD COUNT 6.4 10^3/ul (4.8-10.8)
[2017-04-14 05:37] LABS: ALBUMIN 3.3 g/dl (3.3-4.9); ALBUMIN/GLOBULIN RATIO 0.82; CALCIUM 8.9 mg/dl (8.4-10.2); CREATININE 0.79 mg/dl (0.44-1.00); POTASSIUM 4.3 mmol/L (3.5-5.1); TOTAL PROTEIN 7.3 g/dl (6.1-8.1)
[2017-04-14] MEDS: ACETAMINOPHEN 325 MG TAB PO PRN ×3 (06:05→20:44)
[2017-04-14 06:08] LABS: INR 1.1; PROTIME 14.2 Sec (12.2-14.2); PT RATIO 1.1
[2017-04-14 08:04] VITALS: BP 107/69; RESP 18
--- NOTE | 2017-04-14 08:33 | CONS ---
Date/Time of Note Date/Time of Note DATE: 04/14/17 TIME: 08:31 Assessment/Plan Assessment/Plan Chief Complaint/Hosp Course The patient is a 51-year-old female with past medical history of pulmonary embolism treated with coumadin for > 6 months, with recurrent bilateral pulmonary embolism while off coumadin after running out of medication two weeks ago. 1. Pulmonary embolism, bilateral, recurrent. Her first PE was unprovoked and in itself would have likely warranted lifelong anticoagulation. Given that she has had recurrent unprovoked PEs with her first clot treated with > 6 months of anticoagulation with recurrence with a few weeks of stopping coumadin, she would warrant lifelong anticoagulation regardless of hypercoagulable work-up. - Patient started on therapeutic lovenox - A hypercoagulable workup including protein C, protein S, lupus anticoagulant, and antithrombin III was ordered, will add beta2 glycoprotein IgM and IgG and anticardiolipin IgM and IgG. So far, patient negative for prothrombin gene mutation, factor V Leiden, lupus anticoagulant. Protein C normal, Protein S decreased but may be due to recent clot. Pending ATIII. Beta2 glycoprotein IgG and anticardiolipin IgG are positive, suggesting antiphosphlolipid antibody syndrome. Would need to repeat in 12 weeks to confirm, however given possible APLA syndrome would recommend Coumadin rather than one of the new oral anticoagulants. Patient will need to be started on coumadin with lovenox bridge. Will order coumadin 5 mg daily and daily INR. Patient previously on Coumadin but did not have sufficient INR monitoring. Will check with case management regarding a safe discharge with INR checks. - INR today 1.1, awaiting therapeutic level. - Will order SHAWNA as patient was told that she may have an autoimmune disorder in the past such as lupus or MS. - D-dimer was elevated at 682.97 - LE dopplers negative; LUE doppler shows left basilic vein thrombosis, which is a superficial vein thrombus - as symptomatic may warrant anticoagulation which patient already on for PE, therefore that does not price changer - Will request case management to obtain auth for pt to follow up with me upon discharge 2. History of right ovarian cyst, no microsoft exchange architect 5+ years per patient, CA 125 normal at 25.8. Pelvic US showed enlarged right ovary with a probable hemorrhagic cyst measuring 6.1 x 5.7 x 5.4 cm. Due to the large size, gynecologic consultation is advised. Patient should follow up with ferruler as an outpatient. 3. Family history of sickle cell disease. Screen negative for sickle cells. Problems: Consultation Date/Type/Reason Admit Date/Time April 04, 2017 at 12:47 Initial Consult Date 04/04/17 Type of Consultation: Hematology Referring Provider: GERALD TAYLOR 24 HR Interval Summary Free Text/Dictation Patient states breathing is normal. No complaints. Exam/Review of Systems Vital Signs Vitals Vital Signs Date Time Temp Pulse Resp B/P Pulse Ox O2 Delivery O2 Flow Rate FiO2 04/14/17 08:04 97.8 87 18 107/69 98 04/12/17 17:45 21 04/10/17 20:33 Nasal Cannula 1.0 Intake and Output 04/13/17 04/13/17 04/14/17 15:00 23:00 07:00 Intake Total 1080 ml 1000 ml Balance 1080 ml 1000 ml Exam Constitutional: alert, oriented Psych: nl mood/affect, no complaints Head: atraumatic, normocephalic Eyes: nl conjunctiva ENMT: nl external ears & nose Neck: non-tender, supple Respiratory: clear to auscultation, normal air movement Cardiovascular: regular rate and rhythm Gastrointestinal: soft Musculoskeletal: nl extremities to inspection Results Result Diagram: 04/14/17 0419 04/14/17 0419 Results 24 hrs Laboratory Tests Test 04/13/17 08:49 04/13/17 12:32 04/13/17 17:46 04/13/17 20:27 Bedside Glucose 87 258 H 222 H 180 Test 04/14/17 01:59 04/14/17 04:19 04/14/17 08:29 Bedside Glucose 249 H 172 White Blood Count 6.4 Red Blood Count 4.44 Hemoglobin 10.8 L Hematocrit 35.2 L Mean Corpuscular Volume 79.3 L Mean Corpuscular Hemoglobin 24.3 L Mean Corpuscular Hemoglobin Concent 30.7 L Red Cell Distribution Width 15.3 H Platelet Count 354 # Mean Platelet Volume 9.9 Neutrophils % 45.2 Lymphocytes % 42.2 Monocytes % 8.0 Eosinophils % 1.7 Basophils % 0.5 Nucleated Red Blood Cells % 0.0 Neutrophils # 2.9 Lymphocytes # 2.7 Monocytes # 0.5 Eosinophils # 0.1 Basophils # 0.0 Nucleated Red Blood Cells # 0.0 Prothrombin Time 14.2 Prothrombin Time Ratio 1.1 INR International Normalized Ratio 1.10 Sodium Level 138 Potassium Level 4.3 Chloride Level 107 Carbon Dioxide Level 25 Anion Gap 10 Blood Urea Nitrogen 17 Creatinine 0.79 Glucose Level 262 H Calcium Level 8.9 Total Bilirubin 0.0 L Direct Bilirubin 0.00 Indirect Bilirubin 0.0 Aspartate Amino Transf (AST/SGOT) 21 Alanine Aminotransferase (ALT/SGPT) 40 Alkaline Phosphatase 81 Total Protein 7.3 Albumin 3.3 Globulin 4.00 H Albumin/Globulin Ratio 0.82 Medications Medications Current Medications Ondansetron HCl (Zofran Inj) 4 mg Q6H PRN IV NAUSEA AND/OR VOMITING Last administered on 04/13/17 23:50; Admin Dose 4 MG; Start 04/04/17 at 16:00 Acetaminophen (Tylenol Tab) 650 mg Q6H PRN PO PAIN LEVEL 1-3 OR FEVER Last administered on 04/14/17 06:05; Admin Dose 650 MG; Start 04/04/17 at 16:00 Morphine Sulfate (morphine) 2 mg Q4H PRN IV SEVERE PAIN LEVEL 7-10 Last administered on 04/13/17 23:50; Admin Dose 2 MG; Start 04/04/17 at 16:00 Magnesium Hydroxide (Milk Of Mag) 30 ml DAILY PRN PO CONSTIPATION Last administered on 04/12/17 15:00; Admin Dose 30 ML; Start 04/04/17 at 16:00 Bisacodyl (Dulcolax) 5 mg DAILY PRN PO CONSTIPATION; Start 04/04/17 at 16:00 Famotidine (Pepcid) 20 mg Q12 PO Last administered on 04/13/17 20:25; Admin Dose 20 MG; Start 04/04/17 at 21:00 Enoxaparin Sodium (Lovenox) 75 mg Q12 SC Last administered on 04/13/17 20:29; Admin Dose 75 MG; Start 04/04/17 at 21:00 Hydralazine HCl (Apresoline) 10 mg Q6H PRN IV SBP>160; Start 04/04/17 at 16:00 Gabapentin (Neurontin) 600 mg QHS PO Last administered on 04/13/17 20:25; Admin Dose 600 MG; Start 04/04/17 at 21:00 Miscellaneous Information 1 ea NOTE XX ; Start 04/04/17 at 17:00 Glucose (Glutose) 15 gm Q15M PRN PO DECREASED GLUCOSE; Start 04/04/17 at 17:00 Glucose (Glutose) 22.5 gm Q15M PRN PO DECREASED GLUCOSE; Start 04/04/17 at 17:00 Dextrose (D50w Syringe) 25 ml Q15M PRN IV DECREASED GLUCOSE; Start 04/04/17 at 17:00 Dextrose (D50w Syringe) 50 ml Q15M PRN IV DECREASED GLUCOSE; Start 04/04/17 at 17:00 Glucagon (Glucagen) 1 mg Q15M PRN IM DECREASED GLUCOSE; Start 04/04/17 at 17:00 Glucose (Glutose) 15 gm Q15M PRN BUCCAL DECREASED GLUCOSE; Start 04/04/17 at 17: 00 Oxycodone/ Acetaminophen (Percocet (5/ 325)) 1 tab Q4H PRN PO PAIN Last administered on 04/11/17 05:50; Admin Dose 1 TAB; Start 04/05/17 at 12:00 Ciprofloxacin HCl (Ciloxan 0.3% Oph) 1 drop Q4H BOTH EYES Last administered on 04/14/17 06:05; Admin Dose 1 DROP; Start 04/06/17 at 15:00 Insulin Glargine (Lantus) 27 unit DAILY@20 SC Last administered on 04/13/17 20 :28; Admin Dose 27 UNIT; Start 04/08/17 at 20:00 Lorazepam (Ativan) 1 mg Q6H PRN IM anxiety Last administered on 04/10/17 17: 12; Admin Dose 1 MG; Start 04/10/17 at 16:30 Warfarin Sodium (Coumadin) 5 mg DAILY@17 PO Last administered on 04/13/17 17: 47; Admin Dose 5 MG; Start 04/11/17 at 17:00 Acetam/Butalbital/ Caffeine/Codeine (Fioricet/ Codeine) 2 cap Q4H PRN PO SEVERE PAIN LEVEL 7-10; Start 04/11/17 at 16:00 ALVINO CRUZ MD April 14, 2017 08:33
[2017-04-14] MEDS: INSULIN ASPART [NOVOLOG] 3 ML PEN SC SCH ×7 (08:42→20:50)
[2017-04-14] MEDS: ENOXAPARIN 80 MG/0.8 ML SYG SC SCH ×2 (08:43→20:46)
[2017-04-14] MEDS: FAMOTIDINE 20 MG TAB PO SCH ×2 (08:44→20:44)
--- NOTE | 2017-04-14 10:40 | PN ---
Date/Time of Note Date/Time of Note DATE: 04/14/17 TIME: 10:37 Assessment/Plan VTE Prophylaxis VTE Prophylaxis Intervention: other (Therapeutic anticoagulation.) Lines/Catheters [facility] Urinary Cath still in place: No Assessment/Plan Chief Complaint/Hosp Course 1. Bilateral pulmonary embolism, recurrent. The patient on therapeutic anticoagulation. Being followed by hematology. Workup showed evidence of antiphospholipid syndrome. Bilateral lower extremity venous Doppler study negative for any DVT. Because of antiphospholipid syndrome, the patient is to be on Coumadin. INR subtherapeutic. Patient on therapeutic Lovenox. 2. Chest pain. The chest pain could be most probably secondary to underlying pulmonary embolism. ACS ruled out. 2D echocardiogram showing preserved left ventricular ejection fraction. 3. Type 2 diabetes mellitus. The patient will be continued on sliding scale insulin along with basal insulin and Lantus insulin. Hemoglobin A1c 12.1. 4. Diabetic neuropathy. The patient will be continued on gabapentin. 5. Asthma. No evidence of any exacerbation. Continue as needed inhaled bronchodilators. 6. Right common femoral artery stenosis with the possible 30-49% stenosis as per Doppler study. Vascular surgery on the case. No flow-limiting obstruction as per vascular surgery. 7. Microcytic, hypochromic anemia. Will monitor the H&H closely. Iron panel showing iron deficiency. Continue iron supplements. 8. Right ovarian cyst. 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 9. Fluids, electrolytes, and nutrition. Carbohydrate controlled diet. 10. DVT prophylaxis. On therapeutic anticoagulation. 11. Gastrointestinal prophylaxis. Histamine 2 receptor blockers. 12. Plan. Continue therapeutic anticoagulation. Await to achieve therapeutic INR before discharging the patient. Case discussed with Dr. Erickson. Problems: Subjective 24 Hr Interval Summary Free Text/Dictation INR subtherapeutic. Exam/Review of Systems Vital Signs Vitals Vital Signs Date Time Temp Pulse Resp B/P Pulse Ox O2 Delivery O2 Flow Rate FiO2 04/14/17 08:04 97.8 87 18 107/69 98 04/12/17 17:45 21 04/10/17 20:33 Nasal Cannula 1.0 Intake and Output 04/13/17 04/13/17 04/14/17 15:00 23:00 07:00 Intake Total 1080 ml 1000 ml Balance 1080 ml 1000 ml Exam GENERAL: The patient is an female lying in bed in no apparent distress. HEENT: Head normocephalic and atraumatic. Eyes: Anicteric. Sclerae anicteric. ENT: Nasal septum is midline. Oral mucosa is dry. NECK: Supple. No JVD noticed. RESPIRATORY: Bilaterally clear to auscultation. No adventitious breath sounds. No use of accessory muscles of respiration. CARDIAC: Regular rate and rhythm. GASTROINTESTINAL: S1, S2 heard. ABDOMEN: Soft, nontender, and nondistended. Bowel sounds positive in all 4 quadrants. GENITOURINARY: Deferred. EXTREMITIES: No cyanosis. No clubbing. No calf tenderness. Bilateral dorsalis pedis pulses 1+. NEUROLOGIC: The patient is awake, alert. Cranial nerves are grossly intact. Results Result Diagram: 04/14/17 0419 04/14/17 0419 Results 24 hrs Laboratory Tests Test 04/13/17 12:32 04/13/17 17:46 04/13/17 20:27 04/14/17 01:59 Bedside Glucose 258 H 222 H 180 249 H Test 04/14/17 04:19 04/14/17 08:29 White Blood Count 6.4 Red Blood Count 4.44 Hemoglobin 10.8 L Hematocrit 35.2 L Mean Corpuscular Volume 79.3 L Mean Corpuscular Hemoglobin 24.3 L Mean Corpuscular Hemoglobin Concent 30.7 L Red Cell Distribution Width 15.3 H Platelet Count 354 # Mean Platelet Volume 9.9 Neutrophils % 45.2 Lymphocytes % 42.2 Monocytes % 8.0 Eosinophils % 1.7 Basophils % 0.5 Nucleated Red Blood Cells % 0.0 Neutrophils # 2.9 Lymphocytes # 2.7 Monocytes # 0.5 Eosinophils # 0.1 Basophils # 0.0 Nucleated Red Blood Cells # 0.0 Prothrombin Time 14.2 Prothrombin Time Ratio 1.1 INR International Normalized Ratio 1.10 Sodium Level 138 Potassium Level 4.3 Chloride Level 107 Carbon Dioxide Level 25 Anion Gap 10 Blood Urea Nitrogen 17 Creatinine 0.79 Glucose Level 262 H Calcium Level 8.9 Total Bilirubin 0.0 L Direct Bilirubin 0.00 Indirect Bilirubin 0.0 Aspartate Amino Transf (AST/SGOT) 21 Alanine Aminotransferase (ALT/SGPT) 40 Alkaline Phosphatase 81 Total Protein 7.3 Albumin 3.3 Globulin 4.00 H Albumin/Globulin Ratio 0.82 Bedside Glucose 172 Medications Medications Current Medications Ondansetron HCl (Zofran Inj) 4 mg Q6H PRN IV NAUSEA AND/OR VOMITING Last administered on 04/13/17 23:50; Admin Dose 4 MG; Start 04/04/17 at 16:00 Acetaminophen (Tylenol Tab) 650 mg Q6H PRN PO PAIN LEVEL 1-3 OR FEVER Last administered on 04/14/17 06:05; Admin Dose 650 MG; Start 04/04/17 at 16:00 Morphine Sulfate (morphine) 2 mg Q4H PRN IV SEVERE PAIN LEVEL 7-10 Last administered on 04/13/17 23:50; Admin Dose 2 MG; Start 04/04/17 at 16:00 Magnesium Hydroxide (Milk Of Mag) 30 ml DAILY PRN PO CONSTIPATION Last administered on 04/12/17 15:00; Admin Dose 30 ML; Start 04/04/17 at 16:00 Bisacodyl (Dulcolax) 5 mg DAILY PRN PO CONSTIPATION; Start 04/04/17 at 16:00 Famotidine (Pepcid) 20 mg Q12 PO Last administered on 04/14/17 08:44; Admin Dose 20 MG; Start 04/04/17 at 21:00 Enoxaparin Sodium (Lovenox) 75 mg Q12 SC Last administered on 04/14/17 08:43; Admin Dose 75 MG; Start 04/04/17 at 21:00 Hydralazine HCl (Apresoline) 10 mg Q6H PRN IV SBP>160; Start 04/04/17 at 16:00 Gabapentin (Neurontin) 600 mg QHS PO Last administered on 04/13/17 20:25; Admin Dose 600 MG; Start 04/04/17 at 21:00 Miscellaneous Information 1 ea NOTE XX ; Start 04/04/17 at 17:00 Glucose (Glutose) 15 gm Q15M PRN PO DECREASED GLUCOSE; Start 04/04/17 at 17:00 Glucose (Glutose) 22.5 gm Q15M PRN PO DECREASED GLUCOSE; Start 04/04/17 at 17:00 Dextrose (D50w Syringe) 25 ml Q15M PRN IV DECREASED GLUCOSE; Start 04/04/17 at 17:00 Dextrose (D50w Syringe) 50 ml Q15M PRN IV DECREASED GLUCOSE; Start 04/04/17 at 17:00 Glucagon (Glucagen) 1 mg Q15M PRN IM DECREASED GLUCOSE; Start 04/04/17 at 17:00 Glucose (Glutose) 15 gm Q15M PRN BUCCAL DECREASED GLUCOSE; Start 04/04/17 at 17: 00 Oxycodone/ Acetaminophen (Percocet (5/ 325)) 1 tab Q4H PRN PO PAIN Last administered on 04/11/17 05:50; Admin Dose 1 TAB; Start 04/05/17 at 12:00 Ciprofloxacin HCl (Ciloxan 0.3% Oph) 1 drop Q4H BOTH EYES Last administered on 04/14/17 06:05; Admin Dose 1 DROP; Start 04/06/17 at 15:00 Insulin Glargine (Lantus) 27 unit DAILY@20 SC Last administered on 04/13/17 20 :28; Admin Dose 27 UNIT; Start 04/08/17 at 20:00 Lorazepam (Ativan) 1 mg Q6H PRN IM anxiety Last administered on 04/10/17 17: 12; Admin Dose 1 MG; Start 04/10/17 at 16:30 Warfarin Sodium (Coumadin) 5 mg DAILY@17 PO Last administered on 04/13/17 17: 47; Admin Dose 5 MG; Start 04/11/17 at 17:00 Acetam/Butalbital/ Caffeine/Codeine (Fioricet/ Codeine) 2 cap Q4H PRN PO SEVERE PAIN LEVEL 7-10; Start 04/11/17 at 16:00 VANDANA DICKYE NP April 14, 2017 10:39
[2017-04-14 13:22] LABS: ANA SCREEN POSITIVE (NEGATIVE)
[2017-04-14 15:06] LABS: HEMATOCRIT 34.8 % (37.0-47.0); HEMOGLOBIN 10.8 g/dl (12.0-16.0)
[2017-04-14] MEDS: WARFARIN 5 MG TAB PO SCH (17:50)
[2017-04-14 20:43] VITALS: BP 107/60; RESP 19
[2017-04-14] MEDS: GABAPENTIN 300 MG CAP PO SCH (20:44)
[2017-04-14] MEDS: INSULIN GLARGINE [LANtus] 3 ML PEN SC SCH (20:50)
[2017-04-15] MEDS: CIPROFLOXACIN 0.3% 2.5 ML OPH BOTH EYES SCH ×6 (02:37→23:11)
[2017-04-15 06:09] LABS: INR 1.19; PROTIME 15.2 Sec (12.2-14.2); PT RATIO 1.2
[2017-04-15] MEDS: ACETAMINOPHEN 325 MG TAB PO PRN ×2 (06:28→17:18)
[2017-04-15 06:48] LABS: ADD SCAN DIFF NO
[2017-04-15 06:50] LABS: BASOPHILS % 0.4 % (0.0-2.0); EOSINOPHILS # 0.1 10^3/ul (0.0-0.5); EOSINOPHILS % 1.6 % (0.0-7.0); HEMATOCRIT 33.4 % (37.0-47.0); HEMOGLOBIN 10.3 g/dl (12.0-16.0); LYMPHOCYTES # 2.9 10^3/ul (0.8-2.9); LYMPHOCYTES % 41.4 % (15.0-51.0); MEAN CORPUSCULAR HEMOGLOBIN 24.8 pg (29.0-33.0); MEAN CORPUSCULAR HGB CONC 30.8 g/dl (32.0-37.0); MEAN CORPUSCULAR VOLUME 80.3 fl (82.0-101.0); MEAN PLATELET VOLUME 10.3 fl (7.4-10.4); MONOCYTE # 0.4 10^3/ul (0.3-0.9); MONOCYTES % 6.1 % (0.0-11.0); NEUTROPHIL # 3.4 10^3/ul (1.6-7.5); NEUTROPHILS % 48.9 % (39.0-77.0); PLATELET COUNT 352 10^3/UL (140-415); RED BLOOD COUNT 4.16 10^6/ul (4.20-5.40); RED CELL DISTRIBUTION WIDTH 15.5 % (11.5-14.5); WHITE BLOOD COUNT 6.9 10^3/ul (4.8-10.8)
[2017-04-15] MEDS: INSULIN ASPART [NOVOLOG] 3 ML PEN SC SCH ×7 (07:50→22:10)
[2017-04-15 08:11] VITALS: BP 102/63; RESP 16
[2017-04-15] MEDS: FAMOTIDINE 20 MG TAB PO SCH ×2 (08:40→22:05)
[2017-04-15] MEDS: ENOXAPARIN 80 MG/0.8 ML SYG SC SCH ×2 (08:42→22:09)
--- NOTE | 2017-04-15 09:45 | CONS ---
Date/Time of Note Date/Time of Note DATE: 04/15/17 TIME: 09:44 Assessment/Plan Assessment/Plan Chief Complaint/Hosp Course The patient is a 51-year-old female with past medical history of pulmonary embolism treated with coumadin for > 6 months, with recurrent bilateral pulmonary embolism while off coumadin after running out of medication two weeks ago. 1. Pulmonary embolism, bilateral, recurrent. Her first PE was unprovoked and in itself would have likely warranted lifelong anticoagulation. Given that she has had recurrent unprovoked PEs with her first clot treated with > 6 months of anticoagulation with recurrence with a few weeks of stopping coumadin, she would warrant lifelong anticoagulation regardless of hypercoagulable work-up. - Patient started on therapeutic lovenox - A hypercoagulable workup including protein C, protein S, lupus anticoagulant, and antithrombin III was ordered, will add beta2 glycoprotein IgM and IgG and anticardiolipin IgM and IgG. So far, patient negative for prothrombin gene mutation, factor V Leiden, lupus anticoagulant. Protein C normal, Protein S decreased but may be due to recent clot. Pending ATIII. Beta2 glycoprotein IgG and anticardiolipin IgG are positive, suggesting antiphosphlolipid antibody syndrome. Would need to repeat in 12 weeks to confirm, however given possible APLA syndrome would recommend Coumadin rather than one of the new oral anticoagulants. Patient will need to be started on coumadin with lovenox bridge. INR today 1.19, will increase coumadin to 6 mg daily. Patient previously on Coumadin but did not have sufficient INR monitoring. Will check with case management regarding a safe discharge with INR checks. - Patient with heavy menses, will request gynecology consult, consider oral contraceptives to regulate menses - SHAWNA positive at 1:80, consider rheumatology outpatient follow-up (patient was told that she may have an autoimmune disorder in the past such as lupus or MS). - D-dimer was elevated at 682.97 - LE dopplers negative; LUE doppler shows left basilic vein thrombosis, which is a superficial vein thrombus - as symptomatic may warrant anticoagulation which patient already on for PE, therefore that does not emergency management consultant - Will request case management to obtain auth for pt to follow up with me upon discharge 2. History of right ovarian cyst, no oversize load pilot escort 5+ years per patient, CA 125 normal at 25.8. Pelvic US showed enlarged right ovary with a probable hemorrhagic cyst measuring 6.1 x 5.7 x 5.4 cm. Due to the large size, gynecologic consultation is advised. Patient should follow up with peat shredder tender as an outpatient. 3. Family history of sickle cell disease. Screen negative for sickle cells. Problems: Consultation Date/Type/Reason Admit Date/Time April 04, 2017 at 12:47 Initial Consult Date 04/04/17 Type of Consultation: Hematology Referring Provider: GERALD TAYLOR 24 HR Interval Summary Free Text/Dictation Patient states that she started her period yesterday but it is more heavy than normal with clots, requiring 3 tampons and 1 pad per hour. She states that her breathing is ok. Exam/Review of Systems Vital Signs Vitals Vital Signs Date Time Temp Pulse Resp B/P Pulse Ox O2 Delivery O2 Flow Rate FiO2 04/15/17 08:11 98.5 93 16 102/63 99 04/14/17 16:33 21 Intake and Output 04/14/17 04/14/17 04/15/17 15:00 23:00 07:00 Intake Total 1200 ml 1000 ml Balance 1200 ml 1000 ml Exam Constitutional: alert, oriented Psych: nl mood/affect, no complaints Head: atraumatic, normocephalic Eyes: nl conjunctiva ENMT: nl external ears & nose Neck: non-tender, supple Respiratory: clear to auscultation, normal air movement Cardiovascular: regular rate and rhythm Gastrointestinal: soft Musculoskeletal: nl extremities to inspection Results Result Diagram: 04/15/17 0436 04/14/17 0419 Results 24 hrs Laboratory Tests Test 04/14/17 12:17 04/14/17 14:35 04/14/17 17:49 04/14/17 20:47 Bedside Glucose 245 H 248 H 153 Hemoglobin 10.8 L Hematocrit 34.8 L Test 04/15/17 02:32 04/15/17 04:36 04/15/17 08:07 Bedside Glucose 241 H 120 White Blood Count 6.9 Red Blood Count 4.16 L Hemoglobin 10.3 L Hematocrit 33.4 L Mean Corpuscular Volume 80.3 L Mean Corpuscular Hemoglobin 24.8 L Mean Corpuscular Hemoglobin Concent 30.8 L Red Cell Distribution Width 15.5 H Platelet Count 352 Mean Platelet Volume 10.3 Neutrophils % 48.9 Lymphocytes % 41.4 Monocytes % 6.1 Eosinophils % 1.6 Basophils % 0.4 Nucleated Red Blood Cells % 0.0 Neutrophils # 3.4 Lymphocytes # 2.9 Monocytes # 0.4 Eosinophils # 0.1 Basophils # 0.0 Nucleated Red Blood Cells # 0.0 Prothrombin Time 15.2 H Prothrombin Time Ratio 1.2 INR International Normalized Ratio 1.19 Medications Medications Current Medications Ondansetron HCl (Zofran Inj) 4 mg Q6H PRN IV NAUSEA AND/OR VOMITING Last administered on 04/13/17 23:50; Admin Dose 4 MG; Start 04/04/17 at 16:00 Acetaminophen (Tylenol Tab) 650 mg Q6H PRN PO PAIN LEVEL 1-3 OR FEVER Last administered on 04/15/17 06:28; Admin Dose 650 MG; Start 04/04/17 at 16:00 Morphine Sulfate (morphine) 2 mg Q4H PRN IV SEVERE PAIN LEVEL 7-10 Last administered on 04/13/17 23:50; Admin Dose 2 MG; Start 04/04/17 at 16:00 Magnesium Hydroxide (Milk Of Mag) 30 ml DAILY PRN PO CONSTIPATION Last administered on 04/12/17 15:00; Admin Dose 30 ML; Start 04/04/17 at 16:00 Bisacodyl (Dulcolax) 5 mg DAILY PRN PO CONSTIPATION; Start 04/04/17 at 16:00 Famotidine (Pepcid) 20 mg Q12 PO Last administered on 04/15/17 08:40; Admin Dose 20 MG; Start 04/04/17 at 21:00 Enoxaparin Sodium (Lovenox) 75 mg Q12 SC Last administered on 04/15/17 08:42; Admin Dose 75 MG; Start 04/04/17 at 21:00 Hydralazine HCl (Apresoline) 10 mg Q6H PRN IV SBP>160; Start 04/04/17 at 16:00 Gabapentin (Neurontin) 600 mg QHS PO Last administered on 04/14/17 20:44; Admin Dose 600 MG; Start 04/04/17 at 21:00 Miscellaneous Information 1 ea NOTE XX ; Start 04/04/17 at 17:00 Glucose (Glutose) 15 gm Q15M PRN PO DECREASED GLUCOSE; Start 04/04/17 at 17:00 Glucose (Glutose) 22.5 gm Q15M PRN PO DECREASED GLUCOSE; Start 04/04/17 at 17:00 Dextrose (D50w Syringe) 25 ml Q15M PRN IV DECREASED GLUCOSE; Start 04/04/17 at 17:00 Dextrose (D50w Syringe) 50 ml Q15M PRN IV DECREASED GLUCOSE; Start 04/04/17 at 17:00 Glucagon (Glucagen) 1 mg Q15M PRN IM DECREASED GLUCOSE; Start 04/04/17 at 17:00 Glucose (Glutose) 15 gm Q15M PRN BUCCAL DECREASED GLUCOSE; Start 04/04/17 at 17: 00 Oxycodone/ Acetaminophen (Percocet (5/ 325)) 1 tab Q4H PRN PO PAIN Last administered on 04/11/17 05:50; Admin Dose 1 TAB; Start 04/05/17 at 12:00 Ciprofloxacin HCl (Ciloxan 0.3% Oph) 1 drop Q4H BOTH EYES Last administered on 04/15/17 06:29; Admin Dose 1 DROP; Start 04/06/17 at 15:00 Insulin Glargine (Lantus) 27 unit DAILY@20 SC Last administered on 04/14/17 20 :50; Admin Dose 27 UNIT; Start 04/08/17 at 20:00 Lorazepam (Ativan) 1 mg Q6H PRN IM anxiety Last administered on 04/10/17 17: 12; Admin Dose 1 MG; Start 04/10/17 at 16:30 Warfarin Sodium (Coumadin) 5 mg DAILY@17 PO Last administered on 04/14/17 17: 50; Admin Dose 5 MG; Start 04/11/17 at 17:00 Acetam/Butalbital/ Caffeine/Codeine (Fioricet/ Codeine) 2 cap Q4H PRN PO SEVERE PAIN LEVEL 7-10; Start 04/11/17 at 16:00 ALVINO CRUZ MD April 15, 2017 09:45
--- NOTE | 2017-04-15 14:01 | PN ---
Date/Time of Note Date/Time of Note DATE: 04/15/17 TIME: 14:00 Assessment/Plan VTE Prophylaxis VTE Prophylaxis Intervention: LMWH, other Lines/Catheters IV Catheter Type (from [facility]): [facility] Urinary Cath still in place: No Assessment/Plan Chief Complaint/Hosp Course Chief Complaint/Hosp Course 1. Bilateral pulmonary embolism, recurrent. The patient on therapeutic anticoagulation. Being followed by hematology. Workup showed evidence of antiphospholipid syndrome. Bilateral lower extremity venous Doppler study negative for any DVT. Because of antiphospholipid syndrome, the patient is to be on Coumadin. INR subtherapeutic. Patient on therapeutic Lovenox. 2. Chest pain. The chest pain could be most probably secondary to underlying pulmonary embolism. ACS ruled out. 2D echocardiogram showing preserved left ventricular ejection fraction. 3. Type 2 diabetes mellitus. The patient will be continued on sliding scale insulin along with basal insulin and Lantus insulin. Hemoglobin A1c 12.1. 4. Diabetic neuropathy. The patient will be continued on gabapentin. 5. Asthma. No evidence of any exacerbation. Continue as needed inhaled bronchodilators. 6. Right common femoral artery stenosis with the possible 30-49% stenosis as per Doppler study. Vascular surgery on the case. No flow-limiting obstruction as per vascular surgery. 7. Microcytic, hypochromic anemia. Will monitor the H&H closely. Iron panel showing iron deficiency. Continue iron supplements. 8. Right ovarian cyst. 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 9. Fluids, electrolytes, and nutrition. Carbohydrate controlled diet. 10. DVT prophylaxis. On therapeutic anticoagulation. 11. Gastrointestinal prophylaxis. Histamine 2 receptor blockers. 12. Plan. Continue therapeutic anticoagulation. Await to achieve therapeutic INR before discharging the patient. Problems: Subjective 24 Hr Interval Summary Free Text/Dictation Patient denies any chest pain or shortness of breath No nausea vomiting diarrhea Ambulating without any difficulty Exam/Review of Systems Vital Signs Vitals Vital Signs Date Time Temp Pulse Resp B/P Pulse Ox O2 Delivery O2 Flow Rate FiO2 04/15/17 08:11 98.5 93 16 102/63 99 04/14/17 16:33 21 Intake and Output 04/14/17 04/14/17 04/15/17 15:00 23:00 07:00 Intake Total 1200 ml 1000 ml Balance 1200 ml 1000 ml Exam General: The patient is well-developed, Not in acute distress. HEENT: Atraumatic, normocephalic. The pupils are equal and round . Neck: Supple with full range of motion. Chest: Normal expansion of the thorax during inspiration Lungs: Clear to auscultation bilaterally Heart: Normal S1-S2, Regular rhythm and rate. Abdomen: Soft , nontender, nondistended , bowel sounds are present. Extremities: Normal to inspection, no edema no cyanosis Neurologic: Normal mental status,The patient is awake, alert and oriented . Results Result Diagram: 04/15/17 0436 04/14/17 0419 Results 24 hrs Laboratory Tests Test 04/14/17 14:35 04/14/17 17:49 04/14/17 20:47 04/15/17 02:32 Hemoglobin 10.8 L Hematocrit 34.8 L Bedside Glucose 248 H 153 241 H Test 04/15/17 04:36 04/15/17 08:07 04/15/17 12:37 White Blood Count 6.9 Red Blood Count 4.16 L Hemoglobin 10.3 L Hematocrit 33.4 L Mean Corpuscular Volume 80.3 L Mean Corpuscular Hemoglobin 24.8 L Mean Corpuscular Hemoglobin Concent 30.8 L Red Cell Distribution Width 15.5 H Platelet Count 352 Mean Platelet Volume 10.3 Neutrophils % 48.9 Lymphocytes % 41.4 Monocytes % 6.1 Eosinophils % 1.6 Basophils % 0.4 Nucleated Red Blood Cells % 0.0 Neutrophils # 3.4 Lymphocytes # 2.9 Monocytes # 0.4 Eosinophils # 0.1 Basophils # 0.0 Nucleated Red Blood Cells # 0.0 Prothrombin Time 15.2 H Prothrombin Time Ratio 1.2 INR International Normalized Ratio 1.19 Bedside Glucose 120 255 H Medications Medications Current Medications Ondansetron HCl (Zofran Inj) 4 mg Q6H PRN IV NAUSEA AND/OR VOMITING Last administered on 04/13/17 23:50; Admin Dose 4 MG; Start 04/04/17 at 16:00 Acetaminophen (Tylenol Tab) 650 mg Q6H PRN PO PAIN LEVEL 1-3 OR FEVER Last administered on 04/15/17 06:28; Admin Dose 650 MG; Start 04/04/17 at 16:00 Morphine Sulfate (morphine) 2 mg Q4H PRN IV SEVERE PAIN LEVEL 7-10 Last administered on 04/13/17 23:50; Admin Dose 2 MG; Start 04/04/17 at 16:00 Magnesium Hydroxide (Milk Of Mag) 30 ml DAILY PRN PO CONSTIPATION Last administered on 04/12/17 15:00; Admin Dose 30 ML; Start 04/04/17 at 16:00 Bisacodyl (Dulcolax) 5 mg DAILY PRN PO CONSTIPATION; Start 04/04/17 at 16:00 Famotidine (Pepcid) 20 mg Q12 PO Last administered on 04/15/17 08:40; Admin Dose 20 MG; Start 04/04/17 at 21:00 Enoxaparin Sodium (Lovenox) 75 mg Q12 SC Last administered on 04/15/17 08:42; Admin Dose 75 MG; Start 04/04/17 at 21:00 Hydralazine HCl (Apresoline) 10 mg Q6H PRN IV SBP>160; Start 04/04/17 at 16:00 Gabapentin (Neurontin) 600 mg QHS PO Last administered on 04/14/17 20:44; Admin Dose 600 MG; Start 04/04/17 at 21:00 Miscellaneous Information 1 ea NOTE XX ; Start 04/04/17 at 17:00 Glucose (Glutose) 15 gm Q15M PRN PO DECREASED GLUCOSE; Start 04/04/17 at 17:00 Glucose (Glutose) 22.5 gm Q15M PRN PO DECREASED GLUCOSE; Start 04/04/17 at 17:00 Dextrose (D50w Syringe) 25 ml Q15M PRN IV DECREASED GLUCOSE; Start 04/04/17 at 17:00 Dextrose (D50w Syringe) 50 ml Q15M PRN IV DECREASED GLUCOSE; Start 04/04/17 at 17:00 Glucagon (Glucagen) 1 mg Q15M PRN IM DECREASED GLUCOSE; Start 04/04/17 at 17:00 Glucose (Glutose) 15 gm Q15M PRN BUCCAL DECREASED GLUCOSE; Start 04/04/17 at 17: 00 Oxycodone/ Acetaminophen (Percocet (5/ 325)) 1 tab Q4H PRN PO PAIN Last administered on 04/11/17 05:50; Admin Dose 1 TAB; Start 04/05/17 at 12:00 Ciprofloxacin HCl (Ciloxan 0.3% Oph) 1 drop Q4H BOTH EYES Last administered on 04/15/17 11:47; Admin Dose 1 DROP; Start 04/06/17 at 15:00 Insulin Glargine (Lantus) 27 unit DAILY@20 SC Last administered on 04/14/17 20 :50; Admin Dose 27 UNIT; Start 04/08/17 at 20:00 Lorazepam (Ativan) 1 mg Q6H PRN IM anxiety Last administered on 04/10/17 17: 12; Admin Dose 1 MG; Start 04/10/17 at 16:30 Warfarin Sodium (Coumadin) 5 mg DAILY@17 PO Last administered on 04/14/17 17: 50; Admin Dose 5 MG; Start 04/11/17 at 17:00 Acetam/Butalbital/ Caffeine/Codeine (Fioricet/ Codeine) 2 cap Q4H PRN PO SEVERE PAIN LEVEL 7-10; Start 04/11/17 at 16:00 NELLY SEGOVIA MD April 15, 2017 14:01
[2017-04-15] MEDS ORDERED: WARFARIN 3 MG TAB PO SCH (17:00)
[2017-04-15 20:03] VITALS: BP 114/69; RESP 20
[2017-04-15] MEDS: GABAPENTIN 300 MG CAP PO SCH (22:05)
[2017-04-15] MEDS: INSULIN GLARGINE [LANtus] 3 ML PEN SC SCH (23:09)
[2017-04-16] MEDS ORDERED: INSULIN ASPART [NOVOLOG] 3 ML PEN SC ONE (03:00)
[2017-04-16] MEDS: CIPROFLOXACIN 0.3% 2.5 ML OPH BOTH EYES SCH ×6 (03:00→23:49)
[2017-04-16] MEDS: morphine 2 MG INJ IV PRN (03:01)
[2017-04-16 05:30] LABS: INR 1.28; PROTIME 16.1 Sec (12.2-14.2); PT RATIO 1.3
[2017-04-16 08:13] VITALS: BP 103/58; RESP 16
[2017-04-16 08:59] LABS: HEMOGLOBIN A 98.3 % (>96.0); HEMOGLOBIN A2 (QUANT) 1.7 % (1.8-3.5); HEMOGLOBIN F <1.0 % (<2.0)
[2017-04-16] MEDS: INSULIN ASPART [NOVOLOG] 3 ML PEN SC SCH ×7 (09:26→21:00)
[2017-04-16] MEDS: FAMOTIDINE 20 MG TAB PO SCH ×2 (09:31→20:44)
[2017-04-16] MEDS: ENOXAPARIN 80 MG/0.8 ML SYG SC SCH ×2 (09:33→20:47)
[2017-04-16] MEDS: ACETAMINOPHEN 325 MG TAB PO PRN ×2 (09:42→22:11)
--- NOTE | 2017-04-16 13:38 | CONS ---
Date/Time of Note Date/Time of Note DATE: 04/16/17 TIME: 13:35 Assessment/Plan Assessment/Plan Chief Complaint/Hosp Course The patient is a 51-year-old female with past medical history of pulmonary embolism treated with coumadin for > 6 months, with recurrent bilateral pulmonary embolism while off coumadin after running out of medication two weeks ago. 1. Pulmonary embolism, bilateral, recurrent. Her first PE was unprovoked and in itself would have likely warranted lifelong anticoagulation. Given that she has had recurrent unprovoked PEs with her first clot treated with > 6 months of anticoagulation with recurrence with a few weeks of stopping coumadin, she would warrant lifelong anticoagulation regardless of hypercoagulable work-up. - Patient started on therapeutic lovenox - A hypercoagulable workup including protein C, protein S, lupus anticoagulant, and antithrombin III was ordered, will add beta2 glycoprotein IgM and IgG and anticardiolipin IgM and IgG. So far, patient negative for prothrombin gene mutation, factor V Leiden. Protein C normal, Protein S decreased but may be due to recent clot. AT III normal at 29. Lupus anticoagulant not detected, however Beta2 glycoprotein IgG and anticardiolipin IgG are positive, suggesting antiphosphlolipid antibody syndrome. Would need to repeat in 12 weeks to confirm, however given possible APLA syndrome would recommend Coumadin rather than one of the new oral anticoagulants. Patient will need to be started on coumadin with lovenox bridge. INR today 1.28, coumadin was increased to 6 mg daily on 04/15/17. Patient previously on Coumadin but did not have sufficient INR monitoring. Will check with case management regarding a safe discharge with INR checks. - Patient with heavy menses, Dr. Lange discussed the case with gynecology, oral contraceptives contraindicated due to PE. Improved today - patient should follow up with gynecology (case management request placed). - SHAWNA positive at 1:80, consider rheumatology outpatient follow-up (patient was told that she may have an autoimmune disorder in the past such as lupus or MS). 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 Pelvic US showed enlarged right ovary with a probable hemorrhagic cyst measuring 6.1 x 5.7 x 5.4 cm. Due to the large size, gynecologic consultation is advised. Patient should follow up with preparation operator as an outpatient. 3. Family history of sickle cell disease. Screen negative for sickle cells. 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 Exam/Review of Systems Vital Signs Vitals Vital Signs Date Time Temp Pulse Resp B/P Pulse Ox O2 Delivery O2 Flow Rate FiO2 04/16/17 08:13 98.5 85 16 103/58 99 04/15/17 20:10 Room Air 04/14/17 16:33 21 Intake and Output 04/15/17 04/15/17 04/16/17 15:00 23:00 07:00 Intake Total 1080 ml 200 ml Balance 1080 ml 200 ml Exam Constitutional: alert, oriented Psych: nl mood/affect, no complaints Head: atraumatic, normocephalic Eyes: nl conjunctiva ENMT: nl external ears & nose Neck: non-tender, supple Respiratory: clear to auscultation, normal air movement Cardiovascular: regular rate and rhythm Gastrointestinal: soft Musculoskeletal: nl extremities to inspection Results Result Diagram: 04/15/17 0436 04/14/17 0419 Results 24 hrs Laboratory Tests Test 04/15/17 17:10 04/15/17 22:04 04/15/17 23:05 04/16/17 02:24 Bedside Glucose 201 186 212 310 H Test 04/16/17 04:38 04/16/17 08:55 04/16/17 09:13 04/16/17 13:13 Prothrombin Time 16.1 H Prothrombin Time Ratio 1.3 INR International Normalized Ratio 1.28 Bedside Glucose 139 164 Lab Scanned Report REFERENCE LAB Medications Medications Current Medications Ondansetron HCl (Zofran Inj) 4 mg Q6H PRN IV NAUSEA AND/OR VOMITING Last administered on 04/13/17t 23:50; Admin Dose 4 MG; Start 04/04/17 at 16:00 Acetaminophen (Tylenol Tab) 650 mg Q6H PRN PO PAIN LEVEL 1-3 OR FEVER Last administered on 04/16/17 09:42; Admin Dose 650 MG; Start 04/04/17 at 16:00 Morphine Sulfate (morphine) 2 mg Q4H PRN IV SEVERE PAIN LEVEL 7-10 Last administered on 04/16/17 03:01; Admin Dose 2 MG; Start 04/04/17 at 16:00 Magnesium Hydroxide (Milk Of Mag) 30 ml DAILY PRN PO CONSTIPATION Last administered on 04/12/17 15:00; Admin Dose 30 ML; Start 04/04/17 at 16:00 Bisacodyl (Dulcolax) 5 mg DAILY PRN PO CONSTIPATION; Start 04/04/17 at 16:00 Famotidine (Pepcid) 20 mg Q12 PO Last administered on 04/16/17 09:31; Admin Dose 20 MG; Start 04/04/17 at 21:00 Enoxaparin Sodium (Lovenox) 75 mg Q12 SC Last administered on 04/16/17 09:33; Admin Dose 75 MG; Start 04/04/17 at 21:00 Hydralazine HCl (Apresoline) 10 mg Q6H PRN IV SBP>160; Start 04/04/17 at 16:00 Gabapentin (Neurontin) 600 mg QHS PO Last administered on 04/15/17 22:05; Admin Dose 600 MG; Start 04/04/17 at 21:00 Miscellaneous Information 1 ea NOTE XX ; Start 04/04/17 at 17:00 Glucose (Glutose) 15 gm Q15M PRN PO DECREASED GLUCOSE; Start 04/04/17 at 17:00 Glucose (Glutose) 22.5 gm Q15M PRN PO DECREASED GLUCOSE; Start 04/04/17 at 17:00 Dextrose (D50w Syringe) 25 ml Q15M PRN IV DECREASED GLUCOSE; Start 04/04/17 at 17:00 Dextrose (D50w Syringe) 50 ml Q15M PRN IV DECREASED GLUCOSE; Start 04/04/17 at 17:00 Glucagon (Glucagen) 1 mg Q15M PRN IM DECREASED GLUCOSE; Start 04/04/17 at 17:00 Glucose (Glutose) 15 gm Q15M PRN BUCCAL DECREASED GLUCOSE; Start 04/04/17 at 17: 00 Oxycodone/ Acetaminophen (Percocet (5/ 325)) 1 tab Q4H PRN PO PAIN Last administered on 04/11/17 05:50; Admin Dose 1 TAB; Start 04/05/17 at 12:00 Ciprofloxacin HCl (Ciloxan 0.3% Oph) 1 drop Q4H BOTH EYES Last administered on 04/16/17 09:31; Admin Dose 1 DROP; Start 04/06/17 at 15:00 Insulin Glargine (Lantus) 27 unit DAILY@20 SC Last administered on 04/15/17 23 :09; Admin Dose 27 UNIT; Start 04/08/17 at 20:00 Lorazepam (Ativan) 1 mg Q6H PRN IM anxiety Last administered on 04/10/17 17: 12; Admin Dose 1 MG; Start 04/10/17 at 16:30 Acetam/Butalbital/ Caffeine/Codeine (Fioricet/ Codeine) 2 cap Q4H PRN PO SEVERE PAIN LEVEL 7-10; Start 04/11/17 at 16:00 Warfarin Sodium (Coumadin) 3 mg DAILY@17 PO ; Start 04/16/17 at 17:00 Warfarin Sodium (Coumadin) 5 mg DAILY@17 PO ; Start 04/16/17 at 17:00 TOALVINO MD April 16, 2017 13:38
[2017-04-16] MEDS ORDERED: WARFARIN 5 MG TAB PO SCH (17:00)
[2017-04-16] MEDS ORDERED: WARFARIN 3 MG TAB PO SCH (17:00)
[2017-04-16] MEDS: WARFARIN 10 MG TAB PO SCH (17:50)
[2017-04-16 19:30] VITALS: BP 108/62; RESP 18
--- NOTE | 2017-04-16 19:39 | PN ---
Date/Time of Note Date/Time of Note DATE: 04/16/17 TIME: 19:37 Assessment/Plan VTE Prophylaxis VTE Prophylaxis Intervention: LMWH, other (coumadin ) Lines/Catheters IV [facility] Urinary Cath still in place: No Assessment/Plan Assessment/Plan 1. Bilateral pulmonary embolism, recurrent. The patient on therapeutic anticoagulation. Being followed by hematology. Workup showed evidence of antiphospholipid syndrome. Bilateral lower extremity venous Doppler study negative for any DVT. Because of antiphospholipid syndrome, the patient is to be on Coumadin. INR subtherapeutic. Patient on therapeutic Lovenox. 2. Chest pain. The chest pain could be most probably secondary to underlying pulmonary embolism. ACS ruled out. 2D echocardiogram showing preserved left ventricular ejection fraction. 3. Type 2 diabetes mellitus. The patient will be continued on sliding scale insulin along with basal insulin and Lantus insulin. Hemoglobin A1c 12.1. 4. Diabetic neuropathy. The patient will be continued on gabapentin. 5. Asthma. No evidence of any exacerbation. Continue as needed inhaled bronchodilators. 6. Right common femoral artery stenosis with the possible 30-49% stenosis as per Doppler study. Vascular surgery on the case. No flow-limiting obstruction as per vascular surgery. 7. Microcytic, hypochromic anemia. Will monitor the H&H closely. Iron panel showing iron deficiency. Continue iron supplements. 8. Right ovarian cyst. 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 9. Fluids, electrolytes, and nutrition. Carbohydrate controlled diet. 10. DVT prophylaxis. On therapeutic anticoagulation. 11. Gastrointestinal prophylaxis. Histamine 2 receptor blockers. 12. Plan. Continue therapeutic anticoagulation. Await to achieve therapeutic INR before discharging the patient. give extra dose of lovenox 70mg SQ X 1 now and also increase coumadin to 10mg po daily Subjective 24 Hr Interval Summary Free Text/Dictation doing ok, INR not therpeutic today , BP stabl Exam/Review of Systems Vital Signs Vitals Vital Signs Date Time Temp Pulse Resp B/P Pulse Ox O2 Delivery O2 Flow Rate FiO2 04/16/17 08:13 98.5 85 16 103/58 99 04/15/17 20:10 Room Air 04/14/17 16:33 21 Intake and Output 04/15/17 04/15/17 04/16/17 15:00 23:00 07:00 Intake Total 1080 ml 200 ml Balance 1080 ml 200 ml Results Result Diagram: 5/16/17 0436 04/14/17 0419 Results 24 hrs Laboratory Tests Test 04/15/17 22:04 04/15/17 23:05 04/16/17 02:24 04/16/17 04:38 Bedside Glucose 186 212 310 H Prothrombin Time 16.1 H Prothrombin Time Ratio 1.3 INR International Normalized Ratio 1.28 Test 04/16/17 08:55 04/16/17 09:13 04/16/17 13:13 04/16/17 17:48 Bedside Glucose 139 164 176 Lab Scanned Report REFERENCE LAB Medications Medications Current Medications Ondansetron HCl (Zofran Inj) 4 mg Q6H PRN IV NAUSEA AND/OR VOMITING Last administered on 04/13/17 23:50; Admin Dose 4 MG; Start 04/04/17 at 16:00 Acetaminophen (Tylenol Tab) 650 mg Q6H PRN PO PAIN LEVEL 1-3 OR FEVER Last administered on 04/16/17 09:42; Admin Dose 650 MG; Start 04/04/17 at 16:00 Morphine Sulfate (morphine) 2 mg Q4H PRN IV SEVERE PAIN LEVEL 7-10 Last administered on 04/16/17 03:01; Admin Dose 2 MG; Start 04/04/17 at 16:00 Magnesium Hydroxide (Milk Of Mag) 30 ml DAILY PRN PO CONSTIPATION Last administered on 04/12/17 15:00; Admin Dose 30 ML; Start 04/04/17 at 16:00 Bisacodyl (Dulcolax) 5 mg DAILY PRN PO CONSTIPATION; Start 04/04/17 at 16:00 Famotidine (Pepcid) 20 mg Q12 PO Last administered on 04/16/17 09:31; Admin Dose 20 MG; Start 04/04/17 at 21:00 Enoxaparin Sodium (Lovenox) 75 mg Q12 SC Last administered on 04/16/17 09:33; Admin Dose 75 MG; Start 04/04/17 at 21:00 Hydralazine HCl (Apresoline) 10 mg Q6H PRN IV SBP>160; Start 04/04/17 at 16:00 Gabapentin (Neurontin) 600 mg QHS PO Last administered on 04/15/17 22:05; Admin Dose 600 MG; Start 04/04/17 at 21:00 Miscellaneous Information 1 ea NOTE XX ; Start 04/04/17 at 17:00 Glucose (Glutose) 15 gm Q15M PRN PO DECREASED GLUCOSE; Start 04/04/17 at 17:00 Glucose (Glutose) 22.5 gm Q15M PRN PO DECREASED GLUCOSE; Start 04/04/17 at 17:00 Dextrose (D50w Syringe) 25 ml Q15M PRN IV DECREASED GLUCOSE; Start 04/04/17 at 17:00 Dextrose (D50w Syringe) 50 ml Q15M PRN IV DECREASED GLUCOSE; Start 04/04/17 at 17:00 Glucagon (Glucagen) 1 mg Q15M PRN IM DECREASED GLUCOSE; Start 04/04/17 at 17:00 Glucose (Glutose) 15 gm Q15M PRN BUCCAL DECREASED GLUCOSE; Start 04/04/17 at 17: 00 Oxycodone/ Acetaminophen (Percocet (5/ 325)) 1 tab Q4H PRN PO PAIN Last administered on 04/11/17 05:50; Admin Dose 1 TAB; Start 04/05/17 at 12:00 Ciprofloxacin HCl (Ciloxan 0.3% Oph) 1 drop Q4H BOTH EYES Last administered on 04/16/17 18:54; Admin Dose 1 DROP; Start 04/06/17 at 15:00 Insulin Glargine (Lantus) 27 unit DAILY@20 SC Last administered on 04/15/17 23 :09; Admin Dose 27 UNIT; Start 04/08/17 at 20:00 Lorazepam (Ativan) 1 mg Q6H PRN IM anxiety Last administered on 04/10/17 17: 12; Admin Dose 1 MG; Start 04/10/17 at 16:30 Acetam/Butalbital/ Caffeine/Codeine (Fioricet/ Codeine) 2 cap Q4H PRN PO SEVERE PAIN LEVEL 7-10; Start 04/11/17 at 16:00 Warfarin Sodium (Coumadin) 10 mg DAILY@17 PO Last administered on 04/16/17 17: 50; Admin Dose 10 MG; Start 04/16/17 at 17:00 JAY SIFUENTES MD April 16, 2017 19:39
[2017-04-16] MEDS: GABAPENTIN 300 MG CAP PO SCH (20:44)
[2017-04-16] MEDS: INSULIN GLARGINE [LANtus] 3 ML PEN SC SCH (20:48)
[2017-04-17] MEDS: CIPROFLOXACIN 0.3% 2.5 ML OPH BOTH EYES SCH ×6 (03:00→23:06)
[2017-04-17 05:06] LABS: ADD SCAN DIFF NO
[2017-04-17 05:08] LABS: BASOPHILS % 0.3 % (0.0-2.0); EOSINOPHILS # 0.2 10^3/ul (0.0-0.5); EOSINOPHILS % 2.8 % (0.0-7.0); HEMATOCRIT 30.5 % (37.0-47.0); HEMOGLOBIN 9.4 g/dl (12.0-16.0); LYMPHOCYTES # 2.6 10^3/ul (0.8-2.9); LYMPHOCYTES % 34.2 % (15.0-51.0); MEAN CORPUSCULAR HEMOGLOBIN 24.7 pg (29.0-33.0); MEAN CORPUSCULAR HGB CONC 30.8 g/dl (32.0-37.0); MEAN CORPUSCULAR VOLUME 80.1 fl (82.0-101.0); MONOCYTE # 0.4 10^3/ul (0.3-0.9); MONOCYTES % 5.5 % (0.0-11.0); NEUTROPHIL # 4.2 10^3/ul (1.6-7.5); NEUTROPHILS % 55.1 % (39.0-77.0); PLATELET COUNT 308 10^3/UL (140-415); RED BLOOD COUNT 3.81 10^6/ul (4.20-5.40); WHITE BLOOD COUNT 7.6 10^3/ul (4.8-10.8)
[2017-04-17 05:30] LABS: ALBUMIN 3.2 g/dl (3.3-4.9); ALBUMIN/GLOBULIN RATIO 0.84; CALCIUM 8.5 mg/dl (8.4-10.2); CREATININE 0.55 mg/dl (0.44-1.00); POTASSIUM 4.1 mmol/L (3.5-5.1)
[2017-04-17 05:39] LABS: INR 1.56; PROTIME 18.8 Sec (12.2-14.2); PT RATIO 1.5
[2017-04-17] MEDS: INSULIN ASPART [NOVOLOG] 3 ML PEN SC SCH ×7 (07:50→20:51)
[2017-04-17 08:08] VITALS: BP 103/64; RESP 16
[2017-04-17] MEDS: FAMOTIDINE 20 MG TAB PO SCH ×2 (09:06→20:45)
[2017-04-17] MEDS: ENOXAPARIN 80 MG/0.8 ML SYG SC SCH ×2 (09:08→20:48)
[2017-04-17] MEDS: ACETAMINOPHEN 325 MG TAB PO PRN (09:35)
--- NOTE | 2017-04-17 15:16 | CONS ---
Date/Time of Note Date/Time of Note DATE: 04/17/17 TIME: 15:12 Assessment/Plan Assessment/Plan Chief Complaint/Hosp Course The patient is a 51-year-old female with past medical history of pulmonary embolism treated with coumadin for > 6 months, with recurrent bilateral pulmonary embolism while off coumadin after running out of medication two weeks ago. 1. Pulmonary embolism, bilateral, recurrent. Her first PE was unprovoked and in itself would have likely warranted lifelong anticoagulation. Given that she has had recurrent unprovoked PEs with her first clot treated with > 6 months of anticoagulation with recurrence with a few weeks of stopping coumadin, she would warrant lifelong anticoagulation regardless of hypercoagulable work-up. - Patient started on therapeutic lovenox - A hypercoagulable workup including protein C, protein S, lupus anticoagulant, and antithrombin III was ordered, will add beta2 glycoprotein IgM and IgG and anticardiolipin IgM and IgG. So far, patient negative for prothrombin gene mutation, factor V Leiden. Protein C normal, Protein S decreased but may be due to recent clot. AT III normal at 29. Lupus anticoagulant not detected, however Beta2 glycoprotein IgG and anticardiolipin IgG are positive, suggesting antiphosphlolipid antibody syndrome. Would need to repeat in 12 weeks to confirm, however given possible APLA syndrome would recommend Coumadin rather than one of the new oral anticoagulants. Patient will need to be started on coumadin with lovenox bridge. - INR today 1.56. Patient received coumadin 5 mg 04/11-04/14/17, coumadin was increased to 6 mg daily on 04/15/17. Coumadin was increased to 10 mg on 04/16/17 per primary team. Monitor INR as would expect rise in INR 3-5 days after increasing dosage and quick escalation may result in supratherapeutic levels. Patient previously on Coumadin but did not have sufficient INR monitoring. Will check with case management regarding a safe discharge with INR checks. - Patient with heavy menses, Dr. Laneg discussed the case with gynecology, oral contraceptives contraindicated due to PE. Improved today - patient should follow up with gynecology (case management request placed). Monitor H/H with slight decrease likely due to heavy menses. - SHAWNA positive at 1:80, consider rheumatology outpatient follow-up (patient was told that she may have an autoimmune disorder in the past such as lupus or MS). - D-dimer was elevated at 682.97 - LE dopplers negative; LUE doppler shows left basilic vein thrombosis, which is a superficial vein thrombus - as symptomatic may warrant anticoagulation which patient already on for PE, therefore that does not change management manager - Will request case management to obtain auth for pt to follow up with me upon discharge 2. 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 Pelvic US showed enlarged right ovary with a probable hemorrhagic cyst measuring 6.1 x 5.7 x 5.4 cm. Due to the large size, gynecologic consultation is advised. Patient should follow up with carbide powder processor as an outpatient. 3. Family history of sickle cell disease. Screen negative for sickle cells. Hemoglobinopathy eval showed low Hgb A2 with associated microcytosis, possible alpha thalassemia trait. Problems: Consultation Date/Type/Reason Admit Date/Time April 04, 2017 at 12:47 Initial Consult Date 04/04/17 Type of Consultation: Hematology Referring Provider: GERALD TAYLOR 24 HR Interval Summary Free Text/Dictation Patient states that period is now light. Patient otherwise doing well. Exam/Review of Systems Vital Signs Vitals Vital Signs Date Time Temp Pulse Resp B/P Pulse Ox O2 Delivery O2 Flow Rate FiO2 04/17/17 08:08 98.0 83 16 103/64 97 04/15/17 20:10 Room Air 04/14/17 16:33 21 Intake and Output 04/16/17 04/16/17 04/17/17 15:00 23:00 07:00 Intake Total 480 ml Balance 480 ml Exam Constitutional: alert, oriented Psych: nl mood/affect, no complaints Head: atraumatic, normocephalic Eyes: nl conjunctiva ENMT: nl external ears & nose Neck: non-tender, supple Respiratory: clear to auscultation, normal air movement Cardiovascular: regular rate and rhythm Gastrointestinal: soft Musculoskeletal: nl extremities to inspection Results Result Diagram: 04/17/17 0435 04/17/17 0435 Results 24 hrs Laboratory Tests Test 04/16/17 17:48 04/16/17 20:43 04/17/17 04:35 04/17/17 07:49 Bedside Glucose 176 157 115 White Blood Count 7.6 Red Blood Count 3.81 L Hemoglobin 9.4 L Hematocrit 30.5 L Mean Corpuscular Volume 80.1 L Mean Corpuscular Hemoglobin 24.7 L Mean Corpuscular Hemoglobin Concent 30.8 L Red Cell Distribution Width 16.0 H Platelet Count 308 Mean Platelet Volume 10.0 Neutrophils % 55.1 Lymphocytes % 34.2 Monocytes % 5.5 Eosinophils % 2.8 Basophils % 0.3 Nucleated Red Blood Cells % 0.0 Neutrophils # 4.2 Lymphocytes # 2.6 Monocytes # 0.4 Eosinophils # 0.2 Basophils # 0.0 Nucleated Red Blood Cells # 0.0 Prothrombin Time 18.8 H Prothrombin Time Ratio 1.5 INR International Normalized Ratio 1.56 Sodium Level 139 Potassium Level 4.1 Chloride Level 110 Carbon Dioxide Level 24 Anion Gap 9 Blood Urea Nitrogen 13 Creatinine 0.55 Glucose Level 165 Calcium Level 8.5 Total Bilirubin 0.0 L Direct Bilirubin 0.00 Indirect Bilirubin 0.0 Aspartate Amino Transf (AST/SGOT) 36 Alanine Aminotransferase (ALT/SGPT) 46 Alkaline Phosphatase 78 Total Protein 7.0 Albumin 3.2 L Globulin 3.80 H Albumin/Globulin Ratio 0.84 Test 04/17/17 11:41 Bedside Glucose 126 Medications Medications Current Medications Ondansetron HCl (Zofran Inj) 4 mg Q6H PRN IV NAUSEA AND/OR VOMITING Last administered on 04/13/17 23:50; Admin Dose 4 MG; Start 04/04/17 at 16:00 Acetaminophen (Tylenol Tab) 650 mg Q6H PRN PO PAIN LEVEL 1-3 OR FEVER Last administered on 04/17/17 09:35; Admin Dose 650 MG; Start 04/04/17 at 16:00 Morphine Sulfate (morphine) 2 mg Q4H PRN IV SEVERE PAIN LEVEL 7-10 Last administered on 04/16/17 03:01; Admin Dose 2 MG; Start 04/04/17 at 16:00 Magnesium Hydroxide (Milk Of Mag) 30 ml DAILY PRN PO CONSTIPATION Last administered on 04/12/17 15:00; Admin Dose 30 ML; Start 04/04/17 at 16:00 Bisacodyl (Dulcolax) 5 mg DAILY PRN PO CONSTIPATION; Start 04/04/17 at 16:00 Famotidine (Pepcid) 20 mg Q12 PO Last administered on 04/17/17 09:06; Admin Dose 20 MG; Start 04/04/17 at 21:00 Enoxaparin Sodium (Lovenox) 75 mg Q12 SC Last administered on 04/17/17 09:08; Admin Dose 75 MG; Start 04/04/17 at 21:00 Hydralazine HCl (Apresoline) 10 mg Q6H PRN IV SBP>160; Start 04/04/17 at 16:00 Gabapentin (Neurontin) 600 mg QHS PO Last administered on 04/16/17 20:44; Admin Dose 600 MG; Start 04/04/17 at 21:00 Miscellaneous Information 1 ea NOTE XX ; Start 04/04/17 at 17:00 Glucose (Glutose) 15 gm Q15M PRN PO DECREASED GLUCOSE; Start 04/04/17 at 17:00 Glucose (Glutose) 22.5 gm Q15M PRN PO DECREASED GLUCOSE; Start 04/04/17 at 17:00 Dextrose (D50w Syringe) 25 ml Q15M PRN IV DECREASED GLUCOSE; Start 04/04/17 at 17:00 Dextrose (D50w Syringe) 50 ml Q15M PRN IV DECREASED GLUCOSE; Start 04/04/17 at 17:00 Glucagon (Glucagen) 1 mg Q15M PRN IM DECREASED GLUCOSE; Start 04/04/17 at 17:00 Glucose (Glutose) 15 gm Q15M PRN BUCCAL DECREASED GLUCOSE; Start 04/04/17 at 17: 00 Oxycodone/ Acetaminophen (Percocet (5/ 325)) 1 tab Q4H PRN PO PAIN Last administered on 04/11/17 05:50; Admin Dose 1 TAB; Start 04/05/17 at 12:00 Ciprofloxacin HCl (Ciloxan 0.3% Oph) 1 drop Q4H BOTH EYES Last administered on 04/17/17 14:42; Admin Dose 1 DROP; Start 04/06/17 at 15:00 Insulin Glargine (Lantus) 27 unit DAILY@20 SC Last administered on 04/16/17 20 :48; Admin Dose 27 UNIT; Start 04/08/17 at 20:00 Lorazepam (Ativan) 1 mg Q6H PRN IM anxiety Last administered on 04/10/17 17: 12; Admin Dose 1 MG; Start 04/10/17 at 16:30 Acetam/Butalbital/ Caffeine/Codeine (Fioricet/ Codeine) 2 cap Q4H PRN PO SEVERE PAIN LEVEL 7-10; Start 04/11/17 at 16:00 Warfarin Sodium (Coumadin) 10 mg DAILY@17 PO Last administered on 04/16/17t 17: 50; Admin Dose 10 MG; Start 04/16/17 at 17:00 ALVINO CRUZ MD April 17, 2017 15:16
--- NOTE | 2017-04-17 17:19 | PN ---
Date/Time of Note Date/Time of Note DATE: 04/17/17 TIME: 17:18 Assessment/Plan VTE Prophylaxis VTE Prophylaxis Intervention: LMWH, other (coumadin) Lines/Catheters IV C[facility]ter Type (from [facility] Urinary Cath still in place: No Assessment/Plan Assessment/Plan 1. Bilateral pulmonary embolism, recurrent. The patient on therapeutic anticoagulation. Being followed by hematology. Workup showed evidence of antiphospholipid syndrome. Bilateral lower extremity venous Doppler study negative for any DVT. Because of antiphospholipid syndrome, the patient is to be on Coumadin. INR subtherapeutic. Patient on therapeutic Lovenox. 2. Chest pain. The chest pain could be most probably secondary to underlying pulmonary embolism. ACS ruled out. 2D echocardiogram showing preserved left ventricular ejection fraction. 3. Type 2 diabetes mellitus. The patient will be continued on sliding scale insulin along with basal insulin and Lantus insulin. Hemoglobin A1c 12.1. 4. Diabetic neuropathy. The patient will be continued on gabapentin. 5. Asthma. No evidence of any exacerbation. Continue as needed inhaled bronchodilators. 6. Right common femoral artery stenosis with the possible 30-49% stenosis as per Doppler study. Vascular surgery on the case. No flow-limiting obstruction as per vascular surgery. 7. Microcytic, hypochromic anemia. Will monitor the H&H closely. Iron panel showing iron deficiency. Continue iron supplements. 8. Right ovarian cyst. Outpatient [facility] follow-up. 9. Fluids, electrolytes, and nutrition. Carbohydrate controlled diet. 10. DVT prophylaxis. On therapeutic anticoagulation. 11. Gastrointestinal prophylaxis. Histamine 2 receptor blockers. 12. Plan. Continue therapeutic anticoagulation. Await to achieve therapeutic INR before discharging the patient. on coumadin to 10mg po daily- INR 1.56- still not therapeutic yet Subjective 24 Hr Interval Summary Free Text/Dictation INR went up but still not therapeutic, INR 1.56, no SOB Exam/Review of Systems Vital Signs Vitals Vital Signs Date Time Temp Pulse Resp B/P Pulse Ox O2 Delivery O2 Flow Rate FiO2 04/17/17 08:08 98.0 83 16 103/64 97 04/15/17 20:10 Room Air 04/14/17 16:33 21 Intake and Output 04/16/17 04/16/17 04/17/17 15:00 23:00 07:00 Intake Total 480 ml Balance 480 ml Exam GENERAL: The patient is an female lying in bed in no apparent distress. HEENT: Head normocephalic and atraumatic. Eyes: Anicteric. Sclerae anicteric. ENT: Nasal septum is midline. Oral mucosa is dry. NECK: Supple. No JVD noticed. RESPIRATORY: Bilaterally clear to auscultation. No adventitious breath sounds. No use of accessory muscles of respiration. CARDIAC: Regular rate and rhythm. GASTROINTESTINAL: S1, S2 heard. ABDOMEN: Soft, nontender, and nondistended. Bowel sounds positive in all 4 quadrants. GENITOURINARY: Deferred. EXTREMITIES: No cyanosis. No clubbing. No calf tenderness. Bilateral dorsalis pedis pulses 1+. NEUROLOGIC: The patient is awake, alert. Cranial nerves are grossly intact. Results Result Diagram: 04/17/17 0435 04/17/17 0435 Results 24 hrs Laboratory Tests Test 04/16/17 17:48 04/16/17 20:43 04/17/17 04:35 04/17/17 07:49 Bedside Glucose 176 157 115 White Blood Count 7.6 Red Blood Count 3.81 L Hemoglobin 9.4 L Hematocrit 30.5 L Mean Corpuscular Volume 80.1 L Mean Corpuscular Hemoglobin 24.7 L Mean Corpuscular Hemoglobin Concent 30.8 L Red Cell Distribution Width 16.0 H Platelet Count 308 Mean Platelet Volume 10.0 Neutrophils % 55.1 Lymphocytes % 34.2 Monocytes % 5.5 Eosinophils % 2.8 Basophils % 0.3 Nucleated Red Blood Cells % 0.0 Neutrophils # 4.2 Lymphocytes # 2.6 Monocytes # 0.4 Eosinophils # 0.2 Basophils # 0.0 Nucleated Red Blood Cells # 0.0 Prothrombin Time 18.8 H Prothrombin Time Ratio 1.5 INR International Normalized Ratio 1.56 Sodium Level 139 Potassium Level 4.1 Chloride Level 110 Carbon Dioxide Level 24 Anion Gap 9 Blood Urea Nitrogen 13 Creatinine 0.55 Glucose Level 165 Calcium Level 8.5 Total Bilirubin 0.0 L Direct Bilirubin 0.00 Indirect Bilirubin 0.0 Aspartate Amino Transf (AST/SGOT) 36 Alanine Aminotransferase (ALT/SGPT) 46 Alkaline Phosphatase 78 Total Protein 7.0 Albumin 3.2 L Globulin 3.80 H Albumin/Globulin Ratio 0.84 Test 04/17/17 11:41 04/17/17 17:14 Bedside Glucose 126 235 H Medications Medications Current Medications Ondansetron HCl (Zofran Inj) 4 mg Q6H PRN IV NAUSEA AND/OR VOMITING Last administered on 04/13/17 23:50; Admin Dose 4 MG; Start 04/04/17 at 16:00 Acetaminophen (Tylenol Tab) 650 mg Q6H PRN PO PAIN LEVEL 1-3 OR FEVER Last administered on 04/17/17 09:35; Admin Dose 650 MG; Start 04/04/17 at 16:00 Morphine Sulfate (morphine) 2 mg Q4H PRN IV SEVERE PAIN LEVEL 7-10 Last administered on 04/16/17 03:01; Admin Dose 2 MG; Start 04/04/17 at 16:00 Magnesium Hydroxide (Milk Of Mag) 30 ml DAILY PRN PO CONSTIPATION Last administered on 04/12/17 15:00; Admin Dose 30 ML; Start 04/04/17 at 16:00 Bisacodyl (Dulcolax) 5 mg DAILY PRN PO CONSTIPATION; Start 04/04/17 at 16:00 Famotidine (Pepcid) 20 mg Q12 PO Last administered on 04/17/17 09:06; Admin Dose 20 MG; Start 04/04/17 at 21:00 Enoxaparin Sodium (Lovenox) 75 mg Q12 SC Last administered on 04/17/17 09:08; Admin Dose 75 MG; Start 04/04/17 at 21:00 Hydralazine HCl (Apresoline) 10 mg Q6H PRN IV SBP>160; Start 04/04/17 at 16:00 Gabapentin (Neurontin) 600 mg QHS PO Last administered on 04/16/17 20:44; Admin Dose 600 MG; Start 04/04/17 at 21:00 Miscellaneous Information 1 ea NOTE XX ; Start 04/04/17 at 17:00 Glucose (Glutose) 15 gm Q15M PRN PO DECREASED GLUCOSE; Start 04/04/17 at 17:00 Glucose (Glutose) 22.5 gm Q15M PRN PO DECREASED GLUCOSE; Start 04/04/17 at 17:00 Dextrose (D50w Syringe) 25 ml Q15M PRN IV DECREASED GLUCOSE; Start 04/04/17 at 17:00 Dextrose (D50w Syringe) 50 ml Q15M PRN IV DECREASED GLUCOSE; Start 5/5/17 at 17:00 Glucagon (Glucagen) 1 mg Q15M PRN IM DECREASED GLUCOSE; Start 04/04/17 at 17:00 Glucose (Glutose) 15 gm Q15M PRN BUCCAL DECREASED GLUCOSE; Start 04/04/17 at 17: 00 Oxycodone/ Acetaminophen (Percocet (5/ 325)) 1 tab Q4H PRN PO PAIN Last administered on 04/11/17 05:50; Admin Dose 1 TAB; Start 04/05/17 at 12:00 Ciprofloxacin HCl (Ciloxan 0.3% Oph) 1 drop Q4H BOTH EYES Last administered on 04/17/17 14:42; Admin Dose 1 DROP; Start 04/06/17 at 15:00 Insulin Glargine (Lantus) 27 unit DAILY@20 SC Last administered on 04/16/17 20 :48; Admin Dose 27 UNIT; Start 04/08/17 at 20:00 Lorazepam (Ativan) 1 mg Q6H PRN IM anxiety Last administered on 04/10/17 17: 12; Admin Dose 1 MG; Start 04/10/17 at 16:30 Acetam/Butalbital/ Caffeine/Codeine (Fioricet/ Codeine) 2 cap Q4H PRN PO SEVERE PAIN LEVEL 7-10; Start 04/11/17 at 16:00 Warfarin Sodium (Coumadin) 10 mg DAILY@17 PO Last administered on 04/16/17 17: 50; Admin Dose 10 MG; Start 04/16/17 at 17:00 JAY SIFUENTES MD April 17, 2017 17:19
[2017-04-17] MEDS: WARFARIN 10 MG TAB PO SCH (17:30)
[2017-04-17 20:04] VITALS: BP 120/67; RESP 20
[2017-04-17] MEDS: GABAPENTIN 300 MG CAP PO SCH (20:45)
[2017-04-17] MEDS: INSULIN GLARGINE [LANtus] 3 ML PEN SC SCH (20:47)
[2017-04-18] MEDS: CIPROFLOXACIN 0.3% 2.5 ML OPH BOTH EYES SCH ×6 (03:00→23:00)
[2017-04-18 06:05] LABS: ADD SCAN DIFF NO
[2017-04-18 06:12] LABS: BASOPHILS % 0.3 % (0.0-2.0); EOSINOPHILS # 0.2 10^3/ul (0.0-0.5); EOSINOPHILS % 2.3 % (0.0-7.0); HEMATOCRIT 30.8 % (37.0-47.0); HEMOGLOBIN 9.6 g/dl (12.0-16.0); LYMPHOCYTES # 2.6 10^3/ul (0.8-2.9); LYMPHOCYTES % 35.1 % (15.0-51.0); MEAN CORPUSCULAR HEMOGLOBIN 24.8 pg (29.0-33.0); MEAN CORPUSCULAR HGB CONC 31.2 g/dl (32.0-37.0); MEAN CORPUSCULAR VOLUME 79.6 fl (82.0-101.0); MEAN PLATELET VOLUME 10.2 fl (7.4-10.4); MONOCYTE # 0.5 10^3/ul (0.3-0.9); MONOCYTES % 6.3 % (0.0-11.0); NEUTROPHILS % 53.6 % (39.0-77.0); PLATELET COUNT 345 10^3/UL (140-415); RED BLOOD COUNT 3.87 10^6/ul (4.20-5.40); RED CELL DISTRIBUTION WIDTH 16.3 % (11.5-14.5); WHITE BLOOD COUNT 7.5 10^3/ul (4.8-10.8)
[2017-04-18 06:28] LABS: ALBUMIN 3.1 g/dl (3.3-4.9)
[2017-04-18 06:31] LABS: ALBUMIN/GLOBULIN RATIO 0.77; CREATININE 0.65 mg/dl (0.44-1.00); TOTAL PROTEIN 7.1 g/dl (6.1-8.1)
[2017-04-18 06:32] LABS: CALCIUM 8.7 mg/dl (8.4-10.2); POTASSIUM 3.8 mmol/L (3.5-5.1)
[2017-04-18 06:38] LABS: INR 1.86; PROTIME 21.6 Sec (12.2-14.2); PT RATIO 1.7
[2017-04-18] MEDS: INSULIN ASPART [NOVOLOG] 3 ML PEN SC SCH ×7 (07:50→20:33)
[2017-04-18 08:35] VITALS: BP 108/58; RESP 20
[2017-04-18] MEDS: FAMOTIDINE 20 MG TAB PO SCH ×2 (09:19→20:31)
[2017-04-18] MEDS: ENOXAPARIN 80 MG/0.8 ML SYG SC SCH ×2 (09:24→20:35)
--- NOTE | 2017-04-18 09:34 | CONS ---
Date/Time of Note Date/Time of Note DATE: 04/18/17 TIME: 09:33 Assessment/Plan Assessment/Plan Chief Complaint/Hosp Course The patient is a 51-year-old female with past medical history of pulmonary embolism treated with coumadin for > 6 months, with recurrent bilateral pulmonary embolism while off coumadin after running out of medication two weeks ago. 1. Pulmonary embolism, bilateral, recurrent. Her first PE was unprovoked and in itself would have likely warranted lifelong anticoagulation. Given that she has had recurrent unprovoked PEs with her first clot treated with > 6 months of anticoagulation with recurrence with a few weeks of stopping coumadin, she would warrant lifelong anticoagulation regardless of hypercoagulable work-up. - Patient started on therapeutic lovenox - A hypercoagulable workup including protein C, protein S, lupus anticoagulant, and antithrombin III was ordered, will add beta2 glycoprotein IgM and IgG and anticardiolipin IgM and IgG. So far, patient negative for prothrombin gene mutation, factor V Leiden. Protein C normal, Protein S decreased but may be due to recent clot. AT III normal at 29. Lupus anticoagulant not detected, however Beta2 glycoprotein IgG and anticardiolipin IgG are positive, suggesting antiphosphlolipid antibody syndrome. Would need to repeat in 12 weeks to confirm, however given possible APLA syndrome would recommend Coumadin rather than one of the new oral anticoagulants. Patient will need to be started on coumadin with lovenox bridge. - Patient received coumadin 5 mg 04/11-04/14/17, coumadin was increased to 6 mg daily on 04/15/17. Coumadin was increased to 10 mg on 04/16/17 per primary team. INR now 1.86, awaiting INR 2-3. Patient previously on Coumadin but did not have sufficient INR monitoring. - Patient with heavy menses, Dr. Lange discussed the case with gynecology, oral contraceptives contraindicated due to PE. Improved today - patient should follow up with gynecology (case management request placed). Monitor H/H, currently stable at 9.6. - SHAWNA positive at 1:80, consider rheumatology outpatient follow-up (patient was told that she may have an autoimmune disorder in the past such as lupus or MS). - D-dimer was elevated at 682.97 - LE dopplers negative; LUE doppler shows left basilic vein thrombosis, which is a superficial vein thrombus - as symptomatic may warrant anticoagulation which patient already on for PE, therefore that does not size changer - Will request case management to obtain auth for pt to follow up with me upon discharge 2. History of right ovarian cyst, no change management director 5+ years per patient, CA 125 normal at 25.8. Pelvic US showed enlarged right ovary with a probable hemorrhagic cyst measuring 6.1 x 5.7 x 5.4 cm. Due to the large size, gynecologic consultation is advised. Patient should follow up with obstetrician/gynecologist as an outpatient. 3. Family history of sickle cell disease. Screen negative for sickle cells. Hemoglobinopathy eval showed low Hgb A2 with associated microcytosis, possible alpha thalassemia trait. Problems: Consultation Date/Type/Reason Admit Date/Time April 04, 2017 at 12:47 Initial Consult Date 04/04/17 Type of Consultation: Hematology Referring Provider: GERALD TAYLOR 24 HR Interval Summary Free Text/Dictation Patient doing well, breathing without difficulty, states period now light. Exam/Review of Systems Vital Signs Vitals Vital Signs Date Time Temp Pulse Resp B/P Pulse Ox O2 Delivery O2 Flow Rate FiO2 04/18/17 08:35 98.9 82 20 108/58 100 04/15/17 20:10 Room Air 04/14/17 16:33 21 Intake and Output 04/17/17 04/17/17 04/18/17 15:00 23:00 07:00 Intake Total 450 ml Balance 450 ml Exam Constitutional: alert, oriented Psych: nl mood/affect, no complaints Head: atraumatic, normocephalic Eyes: nl conjunctiva ENMT: nl external ears & nose, scattered right cervical nonspecific LN Neck: non-tender, supple Respiratory: clear to auscultation, normal air movement Cardiovascular: regular rate and rhythm Gastrointestinal: soft Musculoskeletal: nl extremities to inspection Results Result Diagram: 04/18/17 0438 04/18/17 0438 Results 24 hrs Laboratory Tests Test 04/17/17 11:41 04/17/17 17:14 04/17/17 17:45 04/17/17 20:44 Bedside Glucose 126 235 H 245 H 120 Test 04/18/17 04:38 04/18/17 08:15 White Blood Count 7.5 Red Blood Count 3.87 L Hemoglobin 9.6 L Hematocrit 30.8 L Mean Corpuscular Volume 79.6 L Mean Corpuscular Hemoglobin 24.8 L Mean Corpuscular Hemoglobin Concent 31.2 L Red Cell Distribution Width 16.3 H Platelet Count 345 Mean Platelet Volume 10.2 Neutrophils % 53.6 Lymphocytes % 35.1 Monocytes % 6.3 Eosinophils % 2.3 Basophils % 0.3 Nucleated Red Blood Cells % 0.0 Neutrophils # 4.0 Lymphocytes # 2.6 Monocytes # 0.5 Eosinophils # 0.2 Basophils # 0.0 Nucleated Red Blood Cells # 0.0 Prothrombin Time 21.6 H Prothrombin Time Ratio 1.7 INR International Normalized Ratio 1.86 Sodium Level 141 Potassium Level 3.8 Chloride Level 106 Carbon Dioxide Level 24 Anion Gap 15 Blood Urea Nitrogen 13 Creatinine 0.65 Glucose Level 168 Calcium Level 8.7 Total Bilirubin 0.0 L Direct Bilirubin 0.00 Indirect Bilirubin 0.0 Aspartate Amino Transf (AST/SGOT) 35 Alanine Aminotransferase (ALT/SGPT) 58 Alkaline Phosphatase 86 Total Protein 7.1 Albumin 3.1 L Globulin 4.00 H Albumin/Globulin Ratio 0.77 Bedside Glucose 111 Medications Medications Current Medications Ondansetron HCl (Zofran Inj) 4 mg Q6H PRN IV NAUSEA AND/OR VOMITING Last administered on 04/13/17 23:50; Admin Dose 4 MG; Start 04/04/17 at 16:00 Acetaminophen (Tylenol Tab) 650 mg Q6H PRN PO PAIN LEVEL 1-3 OR FEVER Last administered on 04/17/17 09:35; Admin Dose 650 MG; Start 04/04/17 at 16:00 Morphine Sulfate (morphine) 2 mg Q4H PRN IV SEVERE PAIN LEVEL 7-10 Last administered on 04/16/17 03:01; Admin Dose 2 MG; Start 04/04/17 at 16:00 Magnesium Hydroxide (Milk Of Mag) 30 ml DAILY PRN PO CONSTIPATION Last administered on 04/12/17 15:00; Admin Dose 30 ML; Start 04/04/17 at 16:00 Bisacodyl (Dulcolax) 5 mg DAILY PRN PO CONSTIPATION; Start 04/04/17 at 16:00 Famotidine (Pepcid) 20 mg Q12 PO Last administered on 04/18/17 09:19; Admin Dose 20 MG; Start 04/04/17 at 21:00 Enoxaparin Sodium (Lovenox) 75 mg Q12 SC Last administered on 04/18/17 09:24; Admin Dose 75 MG; Start 04/04/17 at 21:00 Hydralazine HCl (Apresoline) 10 mg Q6H PRN IV SBP>160; Start 04/04/17 at 16:00 Gabapentin (Neurontin) 600 mg QHS PO Last administered on 04/17/17 20:45; Admin Dose 600 MG; Start 04/04/17 at 21:00 Miscellaneous Information 1 ea NOTE XX ; Start 04/04/17 at 17:00 Glucose (Glutose) 15 gm Q15M PRN PO DECREASED GLUCOSE; Start 04/04/17 at 17:00 Glucose (Glutose) 22.5 gm Q15M PRN PO DECREASED GLUCOSE; Start 04/04/17 at 17:00 Dextrose (D50w Syringe) 25 ml Q15M PRN IV DECREASED GLUCOSE; Start 04/04/17 at 17:00 Dextrose (D50w Syringe) 50 ml Q15M PRN IV DECREASED GLUCOSE; Start 04/04/17 at 17:00 Glucagon (Glucagen) 1 mg Q15M PRN IM DECREASED GLUCOSE; Start 04/04/17 at 17:00 Glucose (Glutose) 15 gm Q15M PRN BUCCAL DECREASED GLUCOSE; Start 04/04/17 at 17: 00 Oxycodone/ Acetaminophen (Percocet (5/ 325)) 1 tab Q4H PRN PO PAIN Last administered on 04/11/17 05:50; Admin Dose 1 TAB; Start 04/05/17 at 12:00 Ciprofloxacin HCl (Ciloxan 0.3% Oph) 1 drop Q4H BOTH EYES Last administered on 04/18/17 09:19; Admin Dose 1 DROP; Start 04/06/17 at 15:00 Insulin Glargine (Lantus) 27 unit DAILY@20 SC Last administered on 04/17/17 20 :47; Admin Dose 27 UNIT; Start 04/08/17 at 20:00 Lorazepam (Ativan) 1 mg Q6H PRN IM anxiety Last administered on 04/10/17 17: 12; Admin Dose 1 MG; Start 04/10/17 at 16:30 Acetam/Butalbital/ Caffeine/Codeine (Fioricet/ Codeine) 2 cap Q4H PRN PO SEVERE PAIN LEVEL 7-10; Start 04/11/17 at 16:00 Warfarin Sodium (Coumadin) 10 mg DAILY@17 PO Last administered on 04/17/17t 17: 30; Admin Dose 10 MG; Start 04/16/17 at 17:00 TOALVINO MD April 18, 2017 09:34
[2017-04-18] MEDS: ACETAMINOPHEN 325 MG TAB PO PRN (12:47)
--- NOTE | 2017-04-18 16:58 | PN ---
Date/Time of Note Date/Time of Note DATE: 04/18/17 TIME: 16:57 Assessment/Plan VTE Prophylaxis VTE Prophylaxis Intervention: other (Coumadin ) Lines/Catheters IV [facility]from [facility] Urinary Cath still in place: No Assessment/Plan Assessment/Plan 1. Bilateral pulmonary embolism, recurrent. The patient on therapeutic anticoagulation. Being followed by hematology. Workup showed evidence of antiphospholipid syndrome. Bilateral lower extremity venous Doppler study negative for any DVT. Because of antiphospholipid syndrome, the patient is to be on Coumadin. INR subtherapeutic. Patient on therapeutic Lovenox. 2. Chest pain. The chest pain could be most probably secondary to underlying pulmonary embolism. ACS ruled out. 2D echocardiogram showing preserved left ventricular ejection fraction. 3. Type 2 diabetes mellitus. The patient will be continued on sliding scale insulin along with basal insulin and Lantus insulin. Hemoglobin A1c 12.1. 4. Diabetic neuropathy. The patient will be continued on gabapentin. 5. Asthma. No evidence of any exacerbation. Continue as needed inhaled bronchodilators. 6. Right common femoral artery stenosis with the possible 30-49% stenosis as per Doppler study. Vascular surgery on the case. No flow-limiting obstruction as per vascular surgery. 7. Microcytic, hypochromic anemia. Will monitor the H&H closely. Iron panel showing iron deficiency. Continue iron supplements. 8. Right ovarian cyst. Outpatient [employer] follow-up. 9. Fluids, electrolytes, and nutrition. Carbohydrate controlled diet. 10. DVT prophylaxis. On therapeutic anticoagulation. 11. Gastrointestinal prophylaxis. Histamine 2 receptor blockers. 12. Plan. Continue therapeutic anticoagulation. Await to achieve therapeutic INR before discharging the patient. on coumadin to 10mg po daily- INR 1.86- still not therapeutic yet Subjective 24 Hr Interval Summary Free Text/Dictation doing ok, INR 1.86, BP stable, afebrile Exam/Review of Systems Vital Signs Vitals Vital Signs Date Time Temp Pulse Resp B/P Pulse Ox O2 Delivery O2 Flow Rate FiO2 04/18/17 08:35 98.9 82 20 108/58 100 04/15/17 20:10 Room Air 04/14/17 16:33 21 Intake and Output 04/17/17 04/17/17 04/18/17 15:00 23:00 07:00 Intake Total 450 ml Balance 450 ml Results Result Diagram: 04/18/17 0438 04/18/17 0438 Results 24 hrs Laboratory Tests Test 04/17/17 17:14 04/17/17 17:45 04/17/17 20:44 04/18/17 04:38 Bedside Glucose 235 H 245 H 120 White Blood Count 7.5 Red Blood Count 3.87 L Hemoglobin 9.6 L Hematocrit 30.8 L Mean Corpuscular Volume 79.6 L Mean Corpuscular Hemoglobin 24.8 L Mean Corpuscular Hemoglobin Concent 31.2 L Red Cell Distribution Width 16.3 H Platelet Count 345 Mean Platelet Volume 10.2 Neutrophils % 53.6 Lymphocytes % 35.1 Monocytes % 6.3 Eosinophils % 2.3 Basophils % 0.3 Nucleated Red Blood Cells % 0.0 Neutrophils # 4.0 Lymphocytes # 2.6 Monocytes # 0.5 Eosinophils # 0.2 Basophils # 0.0 Nucleated Red Blood Cells # 0.0 Prothrombin Time 21.6 H Prothrombin Time Ratio 1.7 INR International Normalized Ratio 1.86 Sodium Level 141 Potassium Level 3.8 Chloride Level 106 Carbon Dioxide Level 24 Anion Gap 15 Blood Urea Nitrogen 13 Creatinine 0.65 Glucose Level 168 Calcium Level 8.7 Total Bilirubin 0.0 L Direct Bilirubin 0.00 Indirect Bilirubin 0.0 Aspartate Amino Transf (AST/SGOT) 35 Alanine Aminotransferase (ALT/SGPT) 58 Alkaline Phosphatase 86 Total Protein 7.1 Albumin 3.1 L Globulin 4.00 H Albumin/Globulin Ratio 0.77 Test 04/18/17 08:15 04/18/17 12:37 Bedside Glucose 111 124 Medications Medications Current Medications Ondansetron HCl (Zofran Inj) 4 mg Q6H PRN IV NAUSEA AND/OR VOMITING Last administered on 04/13/17 23:50; Admin Dose 4 MG; Start 04/04/17 at 16:00 Acetaminophen (Tylenol Tab) 650 mg Q6H PRN PO PAIN LEVEL 1-3 OR FEVER Last administered on 04/18/17 12:47; Admin Dose 650 MG; Start 04/04/17 at 16:00 Morphine Sulfate (morphine) 2 mg Q4H PRN IV SEVERE PAIN LEVEL 7-10 Last administered on 04/16/17 03:01; Admin Dose 2 MG; Start 04/04/17 at 16:00 Magnesium Hydroxide (Milk Of Mag) 30 ml DAILY PRN PO CONSTIPATION Last administered on 04/12/17 15:00; Admin Dose 30 ML; Start 04/04/17 at 16:00 Bisacodyl (Dulcolax) 5 mg DAILY PRN PO CONSTIPATION; Start 04/04/17 at 16:00 Famotidine (Pepcid) 20 mg Q12 PO Last administered on 04/18/17 09:19; Admin Dose 20 MG; Start 04/04/17 at 21:00 Enoxaparin Sodium (Lovenox) 75 mg Q12 SC Last administered on 04/18/17 09:24; Admin Dose 75 MG; Start 04/04/17 at 21:00 Hydralazine HCl (Apresoline) 10 mg Q6H PRN IV SBP>160; Start 04/04/17 at 16:00 Gabapentin (Neurontin) 600 mg QHS PO Last administered on 04/17/17 20:45; Admin Dose 600 MG; Start 04/04/17 at 21:00 Miscellaneous Information 1 ea NOTE XX ; Start 04/04/17 at 17:00 Glucose (Glutose) 15 gm Q15M PRN PO DECREASED GLUCOSE; Start 04/04/17 at 17:00 Glucose (Glutose) 22.5 gm Q15M PRN PO DECREASED GLUCOSE; Start 04/04/17 at 17:00 Dextrose (D50w Syringe) 25 ml Q15M PRN IV DECREASED GLUCOSE; Start 04/04/17 at 17:00 Dextrose (D50w Syringe) 50 ml Q15M PRN IV DECREASED GLUCOSE; Start 04/04/17 at 17:00 Glucagon (Glucagen) 1 mg Q15M PRN IM DECREASED GLUCOSE; Start 04/04/17 at 17:00 Glucose (Glutose) 15 gm Q15M PRN BUCCAL DECREASED GLUCOSE; Start 04/04/17 at 17: 00 Oxycodone/ Acetaminophen (Percocet (5/ 325)) 1 tab Q4H PRN PO PAIN Last administered on 04/11/17 05:50; Admin Dose 1 TAB; Start 04/05/17 at 12:00 Ciprofloxacin HCl (Ciloxan 0.3% Oph) 1 drop Q4H BOTH EYES Last administered on 04/18/17 15:44; Admin Dose 1 DROP; Start 04/06/17 at 15:00 Insulin Glargine (Lantus) 27 unit DAILY@20 SC Last administered on 04/17/17 20 :47; Admin Dose 27 UNIT; Start 04/08/17 at 20:00 Lorazepam (Ativan) 1 mg Q6H PRN IM anxiety Last administered on 04/10/17 17: 12; Admin Dose 1 MG; Start 04/10/17 at 16:30 Acetam/Butalbital/ Caffeine/Codeine (Fioricet/ Codeine) 2 cap Q4H PRN PO SEVERE PAIN LEVEL 7-10; Start 04/11/17 at 16:00 Warfarin Sodium (Coumadin) 10 mg DAILY@17 PO Last administered on 04/17/17 17: 30; Admin Dose 10 MG; Start 04/16/17 at 17:00 JAY SIFUENTES MD April 18, 2017 16:58
[2017-04-18] MEDS: WARFARIN 10 MG TAB PO SCH (17:40)
[2017-04-18] MEDS: OXYCODONE/ACETAMINOPHEN (5/325) TAB PO PRN (17:45)
[2017-04-18 19:35] VITALS: BP_SYST 112; BP_SYST 125; BP_DIAS 67; BP_DIAS 75; RESP 18
[2017-04-18] MEDS: GABAPENTIN 300 MG CAP PO SCH (20:31)
[2017-04-18] MEDS: INSULIN GLARGINE [LANtus] 3 ML PEN SC SCH (20:35)
[2017-04-19] MEDS: CIPROFLOXACIN 0.3% 2.5 ML OPH BOTH EYES SCH ×6 (03:00→23:39)
[2017-04-19 05:33] LABS: ADD SCAN DIFF NO
[2017-04-19 05:39] LABS: BASOPHILS % 0.3 % (0.0-2.0); EOSINOPHILS # 0.2 10^3/ul (0.0-0.5); EOSINOPHILS % 2.5 % (0.0-7.0); HEMATOCRIT 33.3 % (37.0-47.0); HEMOGLOBIN 10.1 g/dl (12.0-16.0); LYMPHOCYTES # 2.5 10^3/ul (0.8-2.9); LYMPHOCYTES % 36.8 % (15.0-51.0); MEAN CORPUSCULAR HEMOGLOBIN 24.3 pg (29.0-33.0); MEAN CORPUSCULAR HGB CONC 30.3 g/dl (32.0-37.0); MEAN CORPUSCULAR VOLUME 80.2 fl (82.0-101.0); MEAN PLATELET VOLUME 10.1 fl (7.4-10.4); MONOCYTE # 0.5 10^3/ul (0.3-0.9); NEUTROPHIL # 3.5 10^3/ul (1.6-7.5); NEUTROPHILS % 51.3 % (39.0-77.0); PLATELET COUNT 341 10^3/UL (140-415); RED BLOOD COUNT 4.15 10^6/ul (4.20-5.40); RED CELL DISTRIBUTION WIDTH 17.1 % (11.5-14.5); WHITE BLOOD COUNT 6.7 10^3/ul (4.8-10.8)
[2017-04-19 05:47] LABS: INR 2.02; PROTIME 23.1 Sec (12.2-14.2); PT RATIO 1.8
[2017-04-19 06:00] LABS: ALBUMIN 3.5 g/dl (3.3-4.9); ALBUMIN/GLOBULIN RATIO 0.85; CALCIUM 9.1 mg/dl (8.4-10.2); CREATININE 0.67 mg/dl (0.44-1.00); POTASSIUM 4.2 mmol/L (3.5-5.1); TOTAL PROTEIN 7.6 g/dl (6.1-8.1)
[2017-04-19 08:39] VITALS: BP 116/67; RESP 20
[2017-04-19] MEDS: FAMOTIDINE 20 MG TAB PO SCH ×2 (08:55→20:56)
[2017-04-19] MEDS: ENOXAPARIN 80 MG/0.8 ML SYG SC SCH ×2 (08:58→21:01)
[2017-04-19] MEDS: INSULIN ASPART [NOVOLOG] 3 ML PEN SC SCH ×7 (09:00→21:00)
--- NOTE | 2017-04-19 14:08 | PN ---
Date/Time of Note Date/Time of Note DATE: 04/19/17 TIME: 14:05 Assessment/Plan VTE Prophylaxis VTE Prophylaxis Intervention: other (coumadin ) Lines/Catheters IV Catheter Type (from [facility]): [facility] Urinary Cath still in place: No Assessment/Plan Assessment/Plan 1. Bilateral pulmonary embolism, recurrent. Work up c/w Antiphospholipid antiboidy syndrome- Bilateral lower extremity venous Doppler study negative for any DVT. Because of antiphospholipid syndrome, 2. Chest pain. nnon cardial resolved, maybe due to PE 3. Type 2 diabetes mellitus. . 4. Diabetic neuropathy. The patient will be continued on gabapentin. 5. Asthma. No evidence of any exacerbation. Continue as needed inhaled bronchodilators. 6. Right common femoral artery stenosis with the possible 30-49% stenosis as per Doppler study. Vascular surgery on the case. No flow-limiting obstruction as per vascular surgery. 7. Microcytic, hypochromic anemia. Will monitor the H&H closely. Iron panel showing iron deficiency. Continue iron supplements. 8. Right ovarian cyst. stable in size for 5 years 9. Fluids, electrolytes, and nutrition. Carbohydrate controlled diet. 10. DVT prophylaxis. On therapeutic anticoagulation. 11. Gastrointestinal prophylaxis. Histamine 2 receptor blockers. 12. Plan. Continue therapeutic anticoagulation. Await to achieve therapeutic INR before discharging the patient. on coumadin to 10mg po daily Subjective 24 Hr Interval Summary Free Text/Dictation INR 2.02, goal INR between 2.5 to 3.5 Exam/Review of Systems Vital Signs Vitals Vital Signs Date Time Temp Pulse Resp B/P Pulse Ox O2 Delivery O2 Flow Rate FiO2 04/19/17 08:39 98.8 90 20 116/67 99 04/15/17 20:10 Room Air Intake and Output 04/18/17 04/18/17 04/19/17 15:00 23:00 07:00 Intake Total 702 ml 960 ml Balance 702 ml 960 ml Results Result Diagram: 04/19/17 0506 04/19/17 0506 Results 24 hrs Laboratory Tests Test 04/18/17 17:26 04/18/17 20:33 04/19/17 05:06 04/19/17 08:09 Bedside Glucose 152 147 260 H White Blood Count 6.7 Red Blood Count 4.15 L Hemoglobin 10.1 L Hematocrit 33.3 L Mean Corpuscular Volume 80.2 L Mean Corpuscular Hemoglobin 24.3 L Mean Corpuscular Hemoglobin Concent 30.3 L Red Cell Distribution Width 17.1 H Platelet Count 341 Mean Platelet Volume 10.1 Neutrophils % 51.3 Lymphocytes % 36.8 Monocytes % 7.0 Eosinophils % 2.5 Basophils % 0.3 Nucleated Red Blood Cells % 0.0 Neutrophils # 3.5 Lymphocytes # 2.5 Monocytes # 0.5 Eosinophils # 0.2 Basophils # 0.0 Nucleated Red Blood Cells # 0.0 Prothrombin Time 23.1 H Prothrombin Time Ratio 1.8 INR International Normalized Ratio 2.02 Sodium Level 139 Potassium Level 4.2 Chloride Level 107 Carbon Dioxide Level 28 Anion Gap 8 Blood Urea Nitrogen 14 Creatinine 0.67 Glucose Level 144 Calcium Level 9.1 Total Bilirubin 0.0 L Direct Bilirubin 0.00 Indirect Bilirubin 0.0 Aspartate Amino Transf (AST/SGOT) 37 Alanine Aminotransferase (ALT/SGPT) 60 Alkaline Phosphatase 82 Total Protein 7.6 Albumin 3.5 Globulin 4.10 H Albumin/Globulin Ratio 0.85 Test 04/19/17 12:17 Bedside Glucose 82 Medications Medications Current Medications Ondansetron HCl (Zofran Inj) 4 mg Q6H PRN IV NAUSEA AND/OR VOMITING Last administered on 04/13/17 23:50; Admin Dose 4 MG; Start 04/04/17 at 16:00 Acetaminophen (Tylenol Tab) 650 mg Q6H PRN PO PAIN LEVEL 1-3 OR FEVER Last administered on 04/18/17 12:47; Admin Dose 650 MG; Start 04/04/17 at 16:00 Morphine Sulfate (morphine) 2 mg Q4H PRN IV SEVERE PAIN LEVEL 7-10 Last administered on 04/16/17 03:01; Admin Dose 2 MG; Start 04/04/17 at 16:00 Magnesium Hydroxide (Milk Of Mag) 30 ml DAILY PRN PO CONSTIPATION Last administered on 04/12/17 15:00; Admin Dose 30 ML; Start 04/04/17 at 16:00 Bisacodyl (Dulcolax) 5 mg DAILY PRN PO CONSTIPATION; Start 04/04/17 at 16:00 Famotidine (Pepcid) 20 mg Q12 PO Last administered on 04/19/17 08:55; Admin Dose 20 MG; Start 04/04/17 at 21:00 Enoxaparin Sodium (Lovenox) 75 mg Q12 SC Last administered on 04/19/17 08:58; Admin Dose 75 MG; Start 04/04/17 at 21:00 Hydralazine HCl (Apresoline) 10 mg Q6H PRN IV SBP>160; Start 04/04/17 at 16:00 Gabapentin (Neurontin) 600 mg QHS PO Last administered on 04/18/17 20:31; Admin Dose 600 MG; Start 04/04/17 at 21:00 Miscellaneous Information 1 ea NOTE XX ; Start 04/04/17 at 17:00 Glucose (Glutose) 15 gm Q15M PRN PO DECREASED GLUCOSE; Start 04/04/17 at 17:00 Glucose (Glutose) 22.5 gm Q15M PRN PO DECREASED GLUCOSE; Start 04/04/17 at 17:00 Dextrose (D50w Syringe) 25 ml Q15M PRN IV DECREASED GLUCOSE; Start 04/04/17 at 17:00 Dextrose (D50w Syringe) 50 ml Q15M PRN IV DECREASED GLUCOSE; Start 04/04/17 at 17:00 Glucagon (Glucagen) 1 mg Q15M PRN IM DECREASED GLUCOSE; Start 04/04/17 at 17:00 Glucose (Glutose) 15 gm Q15M PRN BUCCAL DECREASED GLUCOSE; Start 04/04/17 at 17: 00 Oxycodone/ Acetaminophen (Percocet (5/ 325)) 1 tab Q4H PRN PO PAIN Last administered on 04/18/17 17:45; Admin Dose 1 TAB; Start 04/05/17 at 12:00 Ciprofloxacin HCl (Ciloxan 0.3% Oph) 1 drop Q4H BOTH EYES Last administered on 04/19/17 11:05; Admin Dose 1 DROP; Start 04/06/17 at 15:00 Insulin Glargine (Lantus) 27 unit DAILY@20 SC Last administered on 04/18/17 20 :35; Admin Dose 27 UNIT; Start 04/08/17 at 20:00 Lorazepam (Ativan) 1 mg Q6H PRN IM anxiety Last administered on 04/10/17 17: 12; Admin Dose 1 MG; Start 04/10/17 at 16:30 Acetam/Butalbital/ Caffeine/Codeine (Fioricet/ Codeine) 2 cap Q4H PRN PO SEVERE PAIN LEVEL 7-10; Start 04/11/17 at 16:00 Warfarin Sodium (Coumadin) 10 mg DAILY@17 PO Last administered on 04/18/17t 17: 40; Admin Dose 10 MG; Start 04/16/17 at 17:00 JAY SIFUENTES MD April 19, 2017 14:08
[2017-04-19] MEDS: ACETAMINOPHEN 325 MG TAB PO PRN (17:30)
[2017-04-19] MEDS: WARFARIN 10 MG TAB PO SCH (17:30)
--- NOTE | 2017-04-19 18:37 | CONS ---
Date/Time of Note Date/Time of Note DATE: 04/19/17 TIME: 18:36 Assessment/Plan Assessment/Plan Chief Complaint/Hosp Course The patient is a 51-year-old female with past medical history of pulmonary embolism treated with coumadin for > 6 months, with recurrent bilateral pulmonary embolism while off coumadin after running out of medication two weeks ago. 1. Pulmonary embolism, bilateral, recurrent. Her first PE was unprovoked and in itself would have likely warranted lifelong anticoagulation. Given that she has had recurrent unprovoked PEs with her first clot treated with > 6 months of anticoagulation with recurrence with a few weeks of stopping coumadin, she would warrant lifelong anticoagulation regardless of hypercoagulable work-up. - Patient started on therapeutic lovenox - A hypercoagulable workup including protein C, protein S, lupus anticoagulant, and antithrombin III was ordered, will add beta2 glycoprotein IgM and IgG and anticardiolipin IgM and IgG. So far, patient negative for prothrombin gene mutation, factor V Leiden. Protein C normal, Protein S decreased but may be due to recent clot. AT III normal at 29. Lupus anticoagulant not detected, however Beta2 glycoprotein IgG and anticardiolipin IgG are positive, suggesting antiphosphlolipid antibody syndrome. Would need to repeat in 12 weeks to confirm, however given possible APLA syndrome would recommend Coumadin rather than one of the new oral anticoagulants. Patient will need to be started on coumadin with lovenox bridge. - Patient received coumadin 5 mg 04/11-04/14/17, coumadin was increased to 6 mg daily on 04/15/17. Coumadin was increased to 10 mg on 04/16/17 per primary team. INR now 2.02, goal INR 2-3. Will continue lovenox bridge until INR > 2 for at least 2 days. Patient previously on Coumadin but did not have sufficient INR monitoring. - Patient with heavy menses, Dr. Lange discussed the case with gynecology, oral contraceptives contraindicated due to PE. Improved today - patient should follow up with gynecology (case management request placed). Monitor H/H, currently stable at 9.6. - SHAWNA positive at 1:80, consider rheumatology outpatient follow-up (patient was told that she may have an autoimmune disorder in the past such as lupus or MS). - D-dimer was elevated at 682.97 - LE dopplers negative; LUE doppler shows left basilic vein thrombosis, which is a superficial vein thrombus - as symptomatic may warrant anticoagulation which patient already on for PE, therefore that does not pattern changer and repairer - Will request case management to obtain auth for pt to follow up with me upon discharge 2. History of right ovarian cyst, no pipe changer 5+ years per patient, CA 125 normal at 25.8. Pelvic US showed enlarged right ovary with a probable hemorrhagic cyst measuring 6.1 x 5.7 x 5.4 cm. Due to the large size, gynecologic consultation is advised. Patient should follow up with obstetrics and gynecology professor as an outpatient. 3. Family history of sickle cell disease. Screen negative for sickle cells. Hemoglobinopathy eval showed low Hgb A2 with associated microcytosis, possible alpha thalassemia trait. Problems: Consultation Date/Type/Reason Admit Date/Time April 04, 2017 at 12:47 Initial Consult Date 04/04/17 Type of Consultation: Hematology Referring Provider: GERALD TAYLOR 24 HR Interval Summary Free Text/Dictation Patient doing well, no shortness of breath, period almost over. Exam/Review of Systems Vital Signs Vitals Vital Signs Date Time Temp Pulse Resp B/P Pulse Ox O2 Delivery O2 Flow Rate FiO2 04/19/17 08:39 98.8 90 20 116/67 99 04/15/17 20:10 Room Air Intake and Output 04/18/17 04/18/17 04/19/17 15:00 23:00 07:00 Intake Total 702 ml 960 ml Balance 702 ml 960 ml Exam Constitutional: alert, oriented Psych: nl mood/affect, no complaints Head: atraumatic, normocephalic Eyes: nl conjunctiva ENMT: nl external ears & nose, scattered right cervical nonspecific LN Neck: non-tender, supple Respiratory: clear to auscultation, normal air movement Cardiovascular: regular rate and rhythm Gastrointestinal: soft Musculoskeletal: nl extremities to inspection Results Result Diagram: 04/19/17 0506 04/19/17 0506 Results 24 hrs Laboratory Tests Test 04/18/17 20:33 04/19/17 05:06 04/19/17 08:09 04/19/17 12:17 Bedside Glucose 147 260 H 82 White Blood Count 6.7 Red Blood Count 4.15 L Hemoglobin 10.1 L Hematocrit 33.3 L Mean Corpuscular Volume 80.2 L Mean Corpuscular Hemoglobin 24.3 L Mean Corpuscular Hemoglobin Concent 30.3 L Red Cell Distribution Width 17.1 H Platelet Count 341 Mean Platelet Volume 10.1 Neutrophils % 51.3 Lymphocytes % 36.8 Monocytes % 7.0 Eosinophils % 2.5 Basophils % 0.3 Nucleated Red Blood Cells % 0.0 Neutrophils # 3.5 Lymphocytes # 2.5 Monocytes # 0.5 Eosinophils # 0.2 Basophils # 0.0 Nucleated Red Blood Cells # 0.0 Prothrombin Time 23.1 H Prothrombin Time Ratio 1.8 INR International Normalized Ratio 2.02 Sodium Level 139 Potassium Level 4.2 Chloride Level 107 Carbon Dioxide Level 28 Anion Gap 8 Blood Urea Nitrogen 14 Creatinine 0.67 Glucose Level 144 Calcium Level 9.1 Total Bilirubin 0.0 L Direct Bilirubin 0.00 Indirect Bilirubin 0.0 Aspartate Amino Transf (AST/SGOT) 37 Alanine Aminotransferase (ALT/SGPT) 60 Alkaline Phosphatase 82 Total Protein 7.6 Albumin 3.5 Globulin 4.10 H Albumin/Globulin Ratio 0.85 Test 04/19/17 17:31 Bedside Glucose 135 Medications Medications Current Medications Ondansetron HCl (Zofran Inj) 4 mg Q6H PRN IV NAUSEA AND/OR VOMITING Last administered on 04/13/17 23:50; Admin Dose 4 MG; Start 04/04/17 at 16:00 Acetaminophen (Tylenol Tab) 650 mg Q6H PRN PO PAIN LEVEL 1-3 OR FEVER Last administered on 04/19/17 17:30; Admin Dose 650 MG; Start 04/04/17 at 16:00 Morphine Sulfate (morphine) 2 mg Q4H PRN IV SEVERE PAIN LEVEL 7-10 Last administered on 04/16/17 03:01; Admin Dose 2 MG; Start 04/04/17 at 16:00 Magnesium Hydroxide (Milk Of Mag) 30 ml DAILY PRN PO CONSTIPATION Last administered on 04/12/17 15:00; Admin Dose 30 ML; Start 04/04/17 at 16:00 Bisacodyl (Dulcolax) 5 mg DAILY PRN PO CONSTIPATION; Start 04/04/17 at 16:00 Famotidine (Pepcid) 20 mg Q12 PO Last administered on 04/19/17 08:55; Admin Dose 20 MG; Start 04/04/17 at 21:00 Enoxaparin Sodium (Lovenox) 75 mg Q12 SC Last administered on 04/19/17 08:58; Admin Dose 75 MG; Start 04/04/17 at 21:00 Hydralazine HCl (Apresoline) 10 mg Q6H PRN IV SBP>160; Start 04/04/17 at 16:00 Gabapentin (Neurontin) 600 mg QHS PO Last administered on 04/18/17 20:31; Admin Dose 600 MG; Start 04/04/17 at 21:00 Miscellaneous Information 1 ea NOTE XX ; Start 04/04/17 at 17:00 Glucose (Glutose) 15 gm Q15M PRN PO DECREASED GLUCOSE; Start 04/04/17 at 17:00 Glucose (Glutose) 22.5 gm Q15M PRN PO DECREASED GLUCOSE; Start 04/04/17 at 17:00 Dextrose (D50w Syringe) 25 ml Q15M PRN IV DECREASED GLUCOSE; Start 04/04/17 at 17:00 Dextrose (D50w Syringe) 50 ml Q15M PRN IV DECREASED GLUCOSE; Start 04/04/17 at 17:00 Glucagon (Glucagen) 1 mg Q15M PRN IM DECREASED GLUCOSE; Start 04/04/17 at 17:00 Glucose (Glutose) 15 gm Q15M PRN BUCCAL DECREASED GLUCOSE; Start 04/04/17 at 17: 00 Oxycodone/ Acetaminophen (Percocet (5/ 325)) 1 tab Q4H PRN PO PAIN Last administered on 04/18/17 17:45; Admin Dose 1 TAB; Start 04/05/17 at 12:00 Ciprofloxacin HCl (Ciloxan 0.3% Oph) 1 drop Q4H BOTH EYES Last administered on 04/19/17 14:53; Admin Dose 1 DROP; Start 04/06/17 at 15:00 Insulin Glargine (Lantus) 27 unit DAILY@20 SC Last administered on 04/18/17 20 :35; Admin Dose 27 UNIT; Start 04/08/17 at 20:00 Lorazepam (Ativan) 1 mg Q6H PRN IM anxiety Last administered on 04/10/17 17: 12; Admin Dose 1 MG; Start 04/10/17 at 16:30 Acetam/Butalbital/ Caffeine/Codeine (Fioricet/ Codeine) 2 cap Q4H PRN PO SEVERE PAIN LEVEL 7-10; Start 04/11/17 at 16:00 Warfarin Sodium (Coumadin) 10 mg DAILY@17 PO Last administered on 04/19/17t 17: 30; Admin Dose 10 MG; Start 04/16/17 at 17:00 ALVINO CRUZ MD April 19, 2017 18:37
[2017-04-19 19:35] VITALS: BP 114/71; RESP 18
[2017-04-19] MEDS: GABAPENTIN 300 MG CAP PO SCH (20:56)
[2017-04-19] MEDS: INSULIN GLARGINE [LANtus] 3 ML PEN SC SCH (21:03)
[2017-04-20] MEDS: CIPROFLOXACIN 0.3% 2.5 ML OPH BOTH EYES SCH ×6 (03:00→22:43)
[2017-04-20] MEDS: ACETAMINOPHEN 325 MG TAB PO PRN ×3 (06:27→18:41)
[2017-04-20 07:00] VITALS: BP 100/63; RESP 18
[2017-04-20] MEDS: INSULIN ASPART [NOVOLOG] 3 ML PEN SC SCH ×7 (07:50→21:00)
[2017-04-20] MEDS: FAMOTIDINE 20 MG TAB PO SCH ×2 (08:41→20:12)
[2017-04-20] MEDS: ENOXAPARIN 80 MG/0.8 ML SYG SC SCH ×2 (08:44→20:15)
[2017-04-20 09:07] LABS: ADD SCAN DIFF NO
[2017-04-20 09:11] LABS: BASOPHILS % 0.4 % (0.0-2.0); EOSINOPHILS # 0.1 10^3/ul (0.0-0.5); EOSINOPHILS % 2.1 % (0.0-7.0); HEMATOCRIT 34.2 % (37.0-47.0); HEMOGLOBIN 10.5 g/dl (12.0-16.0); LYMPHOCYTES # 2.2 10^3/ul (0.8-2.9); LYMPHOCYTES % 32.5 % (15.0-51.0); MEAN CORPUSCULAR HEMOGLOBIN 24.5 pg (29.0-33.0); MEAN CORPUSCULAR HGB CONC 30.7 g/dl (32.0-37.0); MEAN CORPUSCULAR VOLUME 79.7 fl (82.0-101.0); MEAN PLATELET VOLUME 10.1 fl (7.4-10.4); MONOCYTE # 0.5 10^3/ul (0.3-0.9); MONOCYTES % 7.3 % (0.0-11.0); NEUTROPHIL # 3.8 10^3/ul (1.6-7.5); NEUTROPHILS % 55.5 % (39.0-77.0); PLATELET COUNT 323 10^3/UL (140-415); RED BLOOD COUNT 4.29 10^6/ul (4.20-5.40); WHITE BLOOD COUNT 6.8 10^3/ul (4.8-10.8)
[2017-04-20 09:31] LABS: INR 2.33; PROTIME 25.8 Sec (12.2-14.2)
[2017-04-20 09:34] LABS: ALBUMIN 3.4 g/dl (3.3-4.9)
[2017-04-20 09:37] LABS: ALBUMIN/GLOBULIN RATIO 0.8; CREATININE 0.68 mg/dl (0.44-1.00); TOTAL PROTEIN 7.6 g/dl (6.1-8.1)
[2017-04-20 09:38] LABS: CALCIUM 8.9 mg/dl (8.4-10.2)
--- NOTE | 2017-04-20 11:24 | CONS ---
Date/Time of Note Date/Time of Note DATE: 04/20/17 TIME: 11:23 Assessment/Plan Assessment/Plan Additional Assessment/Plan Assessment and plan; next 1. P patient admitted with bilateral recurrent PE. According to the patient she was off medication for 2 weeks prior to the most recent episode. 2. INR has just become therapeutic today. 3. History of anemia, neuropathy and diabetes. Next Continue current treatment. If the INR from tomorrow is also therapeutic then patient will be discharged home on Coumadin. To be used lifelong. Consultation Date/Type/Reason Admit Date/Time April 04, 2017 at 12:47 Initial Consult Date 04/04/17 Type of Consultation: Internal medicine Referring Provider: GERALD TAYLOR 24 HR Interval Summary Free Text/Dictation Patient condition stable. Complains of very minimal sharp left-sided chest pain with deep breathing. Denies any shortness of breath, sputum production, hemoptysis. Any fever chills. General exam; young lady, awake alert currently in no distress. Exam/Review of Systems Vital Signs Vitals Vital Signs Date Time Temp Pulse Resp B/P Pulse Ox O2 Delivery O2 Flow Rate FiO2 04/20/17 07:00 98.5 71 18 100/63 96 Intake and Output 04/19/17 04/19/17 04/20/17 14:59 22:59 06:59 Intake Total 960 ml 960 ml Balance 960 ml 960 ml Exam HEENT exam is; supple neck, no JVD. No lymphadenopathy. Midline trachea. No thyromegaly. Pharynx is clear. Patient has fair dentition. Chest examination; clear to ulceration. S1-S2 audible, no murmurs. Regular rhythm. Abdomen examination; soft, no organomegaly. Bowel sounds audible. Extremity examination; no peripheral edema. CASE MANAGER examination; no focal deficit. Results Result Diagram: 04/20/17 0835 04/20/17 0835 Results 24 hrs Laboratory Tests Test 04/19/17 12:17 04/19/17 17:31 04/19/17 20:58 04/20/17 08:35 Bedside Glucose 82 135 141 White Blood Count 6.8 Red Blood Count 4.29 Hemoglobin 10.5 L Hematocrit 34.2 L Mean Corpuscular Volume 79.7 L Mean Corpuscular Hemoglobin 24.5 L Mean Corpuscular Hemoglobin Concent 30.7 L Red Cell Distribution Width 17.0 H Platelet Count 323 Mean Platelet Volume 10.1 Neutrophils % 55.5 Lymphocytes % 32.5 Monocytes % 7.3 Eosinophils % 2.1 Basophils % 0.4 Nucleated Red Blood Cells % 0.0 Neutrophils # 3.8 Lymphocytes # 2.2 Monocytes # 0.5 Eosinophils # 0.1 Basophils # 0.0 Nucleated Red Blood Cells # 0.0 Prothrombin Time 25.8 H Prothrombin Time Ratio 2.0 INR International Normalized Ratio 2.33 Sodium Level 141 Potassium Level 4.0 Chloride Level 105 Carbon Dioxide Level 26 Anion Gap 14 Blood Urea Nitrogen 15 Creatinine 0.68 Glucose Level 107 Calcium Level 8.9 Total Bilirubin 0.0 L Direct Bilirubin 0.00 Indirect Bilirubin 0.0 Aspartate Amino Transf (AST/SGOT) 30 Alanine Aminotransferase (ALT/SGPT) 59 Alkaline Phosphatase 84 Total Protein 7.6 Albumin 3.4 Globulin 4.20 H Albumin/Globulin Ratio 0.80 Test 04/20/17 08:39 Bedside Glucose 115 Medications Medications Current Medications Ondansetron HCl (Zofran Inj) 4 mg Q6H PRN IV NAUSEA AND/OR VOMITING Last administered on 04/13/17 23:50; Admin Dose 4 MG; Start 04/04/17 at 16:00 Acetaminophen (Tylenol Tab) 650 mg Q6H PRN PO PAIN LEVEL 1-3 OR FEVER Last administered on 04/20/17 06:27; Admin Dose 650 MG; Start 04/04/17 at 16:00 Morphine Sulfate (morphine) 2 mg Q4H PRN IV SEVERE PAIN LEVEL 7-10 Last administered on 04/16/17 03:01; Admin Dose 2 MG; Start 04/04/17 at 16:00 Magnesium Hydroxide (Milk Of Mag) 30 ml DAILY PRN PO CONSTIPATION Last administered on 04/12/17 15:00; Admin Dose 30 ML; Start 04/04/17 at 16:00 Bisacodyl (Dulcolax) 5 mg DAILY PRN PO CONSTIPATION; Start 04/04/17 at 16:00 Famotidine (Pepcid) 20 mg Q12 PO Last administered on 04/20/17 08:41; Admin Dose 20 MG; Start 04/04/17 at 21:00 Enoxaparin Sodium (Lovenox) 75 mg Q12 SC Last administered on 04/20/17 08:44; Admin Dose 75 MG; Start 04/04/17 at 21:00 Hydralazine HCl (Apresoline) 10 mg Q6H PRN IV SBP>160; Start 04/04/17 at 16:00 Gabapentin (Neurontin) 600 mg QHS PO Last administered on 04/19/17 20:56; Admin Dose 600 MG; Start 04/04/17 at 21:00 Miscellaneous Information 1 ea NOTE XX ; Start 04/04/17 at 17:00 Glucose (Glutose) 15 gm Q15M PRN PO DECREASED GLUCOSE; Start 04/04/17 at 17:00 Glucose (Glutose) 22.5 gm Q15M PRN PO DECREASED GLUCOSE; Start 04/04/17 at 17:00 Dextrose (D50w Syringe) 25 ml Q15M PRN IV DECREASED GLUCOSE; Start 04/04/17 at 17:00 Dextrose (D50w Syringe) 50 ml Q15M PRN IV DECREASED GLUCOSE; Start 04/04/17 at 17:00 Glucagon (Glucagen) 1 mg Q15M PRN IM DECREASED GLUCOSE; Start 04/04/17 at 17:00 Glucose (Glutose) 15 gm Q15M PRN BUCCAL DECREASED GLUCOSE; Start 04/04/17 at 17: 00 Oxycodone/ Acetaminophen (Percocet (5/ 325)) 1 tab Q4H PRN PO PAIN Last administered on 04/18/17 17:45; Admin Dose 1 TAB; Start 04/05/17 at 12:00 Ciprofloxacin HCl (Ciloxan 0.3% Oph) 1 drop Q4H BOTH EYES Last administered on 04/20/17 06:27; Admin Dose 1 DROP; Start 04/06/17 at 15:00 Insulin Glargine (Lantus) 27 unit DAILY@20 SC Last administered on 04/19/17 21 :03; Admin Dose 27 UNIT; Start 04/08/17 at 20:00 Lorazepam (Ativan) 1 mg Q6H PRN IM anxiety Last administered on 04/10/17 17: 12; Admin Dose 1 MG; Start 04/10/17 at 16:30 Acetam/Butalbital/ Caffeine/Codeine (Fioricet/ Codeine) 2 cap Q4H PRN PO SEVERE PAIN LEVEL 7-10; Start 04/11/17 at 16:00 Warfarin Sodium (Coumadin) 10 mg DAILY@17 PO Last administered on 04/19/17t 17: 30; Admin Dose 10 MG; Start 04/16/17 at 17:00 MARIE CHAVEZ April 20, 2017 11:24
--- NOTE | 2017-04-20 13:14 | CONS ---
Date/Time of Note Date/Time of Note DATE: 04/20/17 TIME: 13:13 Assessment/Plan Assessment/Plan Chief Complaint/Hosp Course The patient is a 51-year-old female with past medical history of pulmonary embolism treated with coumadin for > 6 months, with recurrent bilateral pulmonary embolism while off coumadin after running out of medication two weeks ago. 1. Pulmonary embolism, bilateral, recurrent. Her first PE was unprovoked and in itself would have likely warranted lifelong anticoagulation. Given that she has had recurrent unprovoked PEs with her first clot treated with > 6 months of anticoagulation with recurrence with a few weeks of stopping coumadin, she would warrant lifelong anticoagulation regardless of hypercoagulable work-up. - Patient started on therapeutic lovenox - A hypercoagulable workup including protein C, protein S, lupus anticoagulant, and antithrombin III was ordered, will add beta2 glycoprotein IgM and IgG and anticardiolipin IgM and IgG. So far, patient negative for prothrombin gene mutation, factor V Leiden. Protein C normal, Protein S decreased but may be due to recent clot. AT III normal at 29. Lupus anticoagulant not detected, however Beta2 glycoprotein IgG and anticardiolipin IgG are positive, suggesting antiphosphlolipid antibody syndrome. Would need to repeat in 12 weeks to confirm, however given possible APLA syndrome would recommend Coumadin rather than one of the new oral anticoagulants. Patient will need to be started on coumadin with lovenox bridge. - Patient received coumadin 5 mg 04/11-04/14/17, coumadin was increased to 6 mg daily on 04/15/17. Coumadin was increased to 10 mg on 04/16/17 per primary team. INR yesterday 2.02, now 2.33, goal INR 2-3. Ok from hematology perspective to discharge home as long as case management has obtained auth for coumadin. Patient will follow-up with me in hematology clinic and will call my office to schedule an appointment. - Patient with heavy menses, Dr. Lange discussed the case with gynecology, oral contraceptives contraindicated due to PE. Improved today - patient should follow up with gynecology (case management request placed). Monitor H/H, currently stable at 10.5. - SHAWNA positive at 1:80, consider rheumatology outpatient follow-up (patient was told that she may have an autoimmune disorder in the past such as lupus or MS). 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 Pelvic US showed enlarged right ovary with a probable hemorrhagic cyst measuring 6.1 x 5.7 x 5.4 cm. Due to the large size, gynecologic consultation is advised. 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 3. Family history of sickle cell disease. Screen negative for sickle cells. Hemoglobinopathy eval showed low Hgb A2 with associated microcytosis, possible alpha thalassemia trait. Problems: Consultation Date/Type/Reason Admit Date/Time April 04, 2017 at 12:47 Initial Consult Date 04/04/17 Type of Consultation: Hematology Referring Provider: GERALD TAYLOR 24 HR Interval Summary Free Text/Dictation Doing well, anxious to go home. Exam/Review of Systems Vital Signs Vitals Vital Signs Date Time Temp Pulse Resp B/P Pulse Ox O2 Delivery O2 Flow Rate FiO2 04/20/17 07:00 98.5 71 18 100/63 96 Intake and Output 04/19/17 04/19/17 04/20/17 15:00 23:00 07:00 Intake Total 960 ml 960 ml Balance 960 ml 960 ml Exam Constitutional: alert, oriented Psych: nl mood/affect, no complaints Head: atraumatic, normocephalic Eyes: nl conjunctiva ENMT: nl external ears & nose, scattered right cervical nonspecific LN Neck: non-tender, supple Respiratory: clear to auscultation, normal air movement Cardiovascular: regular rate and rhythm Gastrointestinal: soft Musculoskeletal: nl extremities to inspection Results Result Diagram: 04/20/17 0835 04/20/17 0835 Results 24 hrs Laboratory Tests Test 04/19/17 17:31 04/19/17 20:58 04/20/17 08:35 04/20/17 08:39 Bedside Glucose 135 141 115 White Blood Count 6.8 Red Blood Count 4.29 Hemoglobin 10.5 L Hematocrit 34.2 L Mean Corpuscular Volume 79.7 L Mean Corpuscular Hemoglobin 24.5 L Mean Corpuscular Hemoglobin Concent 30.7 L Red Cell Distribution Width 17.0 H Platelet Count 323 Mean Platelet Volume 10.1 Neutrophils % 55.5 Lymphocytes % 32.5 Monocytes % 7.3 Eosinophils % 2.1 Basophils % 0.4 Nucleated Red Blood Cells % 0.0 Neutrophils # 3.8 Lymphocytes # 2.2 Monocytes # 0.5 Eosinophils # 0.1 Basophils # 0.0 Nucleated Red Blood Cells # 0.0 Prothrombin Time 25.8 H Prothrombin Time Ratio 2.0 INR International Normalized Ratio 2.33 Sodium Level 141 Potassium Level 4.0 Chloride Level 105 Carbon Dioxide Level 26 Anion Gap 14 Blood Urea Nitrogen 15 Creatinine 0.68 Glucose Level 107 Calcium Level 8.9 Total Bilirubin 0.0 L Direct Bilirubin 0.00 Indirect Bilirubin 0.0 Aspartate Amino Transf (AST/SGOT) 30 Alanine Aminotransferase (ALT/SGPT) 59 Alkaline Phosphatase 84 Total Protein 7.6 Albumin 3.4 Globulin 4.20 H Albumin/Globulin Ratio 0.80 Test 04/20/17 12:29 Bedside Glucose 137 Medications Medications Current Medications Ondansetron HCl (Zofran Inj) 4 mg Q6H PRN IV NAUSEA AND/OR VOMITING Last administered on 04/13/17 23:50; Admin Dose 4 MG; Start 04/04/17 at 16:00 Acetaminophen (Tylenol Tab) 650 mg Q6H PRN PO PAIN LEVEL 1-3 OR FEVER Last administered on 04/20/17 12:37; Admin Dose 650 MG; Start 04/04/17 at 16:00 Morphine Sulfate (morphine) 2 mg Q4H PRN IV SEVERE PAIN LEVEL 7-10 Last administered on 04/16/17 03:01; Admin Dose 2 MG; Start 04/04/17 at 16:00 Magnesium Hydroxide (Milk Of Mag) 30 ml DAILY PRN PO CONSTIPATION Last administered on 04/12/17 15:00; Admin Dose 30 ML; Start 04/04/17 at 16:00 Bisacodyl (Dulcolax) 5 mg DAILY PRN PO CONSTIPATION; Start 04/04/17 at 16:00 Famotidine (Pepcid) 20 mg Q12 PO Last administered on 04/20/17 08:41; Admin Dose 20 MG; Start 04/04/17 at 21:00 Enoxaparin Sodium (Lovenox) 75 mg Q12 SC Last administered on 04/20/17 08:44; Admin Dose 75 MG; Start 04/04/17 at 21:00 Hydralazine HCl (Apresoline) 10 mg Q6H PRN IV SBP>160; Start 04/04/17 at 16:00 Gabapentin (Neurontin) 600 mg QHS PO Last administered on 04/19/17 20:56; Admin Dose 600 MG; Start 04/04/17 at 21:00 Miscellaneous Information 1 ea NOTE XX ; Start 04/04/17 at 17:00 Glucose (Glutose) 15 gm Q15M PRN PO DECREASED GLUCOSE; Start 04/04/17 at 17:00 Glucose (Glutose) 22.5 gm Q15M PRN PO DECREASED GLUCOSE; Start 04/04/17 at 17:00 Dextrose (D50w Syringe) 25 ml Q15M PRN IV DECREASED GLUCOSE; Start 04/04/17 at 17:00 Dextrose (D50w Syringe) 50 ml Q15M PRN IV DECREASED GLUCOSE; Start 04/04/17 at 17:00 Glucagon (Glucagen) 1 mg Q15M PRN IM DECREASED GLUCOSE; Start 04/04/17 at 17:00 Glucose (Glutose) 15 gm Q15M PRN BUCCAL DECREASED GLUCOSE; Start 04/04/17 at 17: 00 Oxycodone/ Acetaminophen (Percocet (5/ 325)) 1 tab Q4H PRN PO PAIN Last administered on 04/18/17 17:45; Admin Dose 1 TAB; Start 04/05/17 at 12:00 Ciprofloxacin HCl (Ciloxan 0.3% Oph) 1 drop Q4H BOTH EYES Last administered on 04/20/17 06:27; Admin Dose 1 DROP; Start 04/06/17 at 15:00 Insulin Glargine (Lantus) 27 unit DAILY@20 SC Last administered on 04/19/17 21 :03; Admin Dose 27 UNIT; Start 04/08/17 at 20:00 Lorazepam (Ativan) 1 mg Q6H PRN IM anxiety Last administered on 04/10/17 17: 12; Admin Dose 1 MG; Start 04/10/17 at 16:30 Acetam/Butalbital/ Caffeine/Codeine (Fioricet/ Codeine) 2 cap Q4H PRN PO SEVERE PAIN LEVEL 7-10; Start 04/11/17 at 16:00 Warfarin Sodium (Coumadin) 10 mg DAILY@17 PO Last administered on 04/19/17t 17: 30; Admin Dose 10 MG; Start 04/16/17 at 17:00 ALVINO CRUZ MD April 20, 2017 13:14
[2017-04-20] MEDS: WARFARIN 10 MG TAB PO SCH (18:00)
[2017-04-20 20:00] VITALS: BP 112/65; PULSE 93; RESP 19
[2017-04-20] MEDS: GABAPENTIN 300 MG CAP PO SCH (20:12)
[2017-04-20] MEDS: INSULIN GLARGINE [LANtus] 3 ML PEN SC SCH (20:17)
[2017-04-21] MEDS: CIPROFLOXACIN 0.3% 2.5 ML OPH BOTH EYES SCH ×3 (03:00→11:00)
[2017-04-21 04:56] LABS: ADD SCAN DIFF NO
[2017-04-21 05:12] LABS: BASOPHILS % 0.5 % (0.0-2.0); EOSINOPHILS # 0.1 10^3/ul (0.0-0.5); EOSINOPHILS % 1.9 % (0.0-7.0); HEMATOCRIT 32.1 % (37.0-47.0); HEMOGLOBIN 9.9 g/dl (12.0-16.0); LYMPHOCYTES # 2.4 10^3/ul (0.8-2.9); LYMPHOCYTES % 39.5 % (15.0-51.0); MEAN CORPUSCULAR HEMOGLOBIN 24.8 pg (29.0-33.0); MEAN CORPUSCULAR HGB CONC 30.8 g/dl (32.0-37.0); MEAN CORPUSCULAR VOLUME 80.5 fl (82.0-101.0); MEAN PLATELET VOLUME 10.1 fl (7.4-10.4); MONOCYTE # 0.5 10^3/ul (0.3-0.9); MONOCYTES % 7.3 % (0.0-11.0); NEUTROPHILS % 48.9 % (39.0-77.0); PLATELET COUNT 329 10^3/UL (140-415); RED BLOOD COUNT 3.99 10^6/ul (4.20-5.40); RED CELL DISTRIBUTION WIDTH 16.8 % (11.5-14.5); WHITE BLOOD COUNT 6.2 10^3/ul (4.8-10.8)
[2017-04-21 05:21] LABS: INR 2.63; PROTIME 28.4 Sec (12.2-14.2); PT RATIO 2.2
[2017-04-21 05:26] LABS: ALBUMIN 3.3 g/dl (3.3-4.9); ALBUMIN/GLOBULIN RATIO 0.86; CALCIUM 8.4 mg/dl (8.4-10.2); CREATININE 0.63 mg/dl (0.44-1.00); TOTAL PROTEIN 7.1 g/dl (6.1-8.1)
[2017-04-21 07:40] VITALS: BP 121/68; RESP 19
[2017-04-21] MEDS: FAMOTIDINE 20 MG TAB PO SCH (08:53)
[2017-04-21] MEDS: ACETAMINOPHEN 325 MG TAB PO PRN (08:54)
[2017-04-21] MEDS: INSULIN ASPART [NOVOLOG] 3 ML PEN SC SCH ×4 (08:56→13:05)
[2017-04-21] MEDS: ENOXAPARIN 80 MG/0.8 ML SYG SC SCH (08:57)
--- NOTE | 2017-04-21 10:35 | CONS ---
Date/Time of Note Date/Time of Note DATE: 04/21/17 TIME: 10:28 Assessment/Plan Assessment/Plan Chief Complaint/Hosp Course The patient is a 51-year-old female with past medical history of pulmonary embolism treated with coumadin for > 6 months, with recurrent bilateral pulmonary embolism while off coumadin after running out of medication two weeks ago. 1. Pulmonary embolism, bilateral, recurrent. Her first PE was unprovoked and in itself would have likely warranted lifelong anticoagulation. Given that she has had recurrent unprovoked PEs with her first clot treated with > 6 months of anticoagulation with recurrence with a few weeks of stopping coumadin, she would warrant lifelong anticoagulation regardless of hypercoagulable work-up. - Patient started on therapeutic lovenox and now bridged to coumadin. Ok to discontinue lovenox now that coumadin has been therapeutic for > 2 days. - A hypercoagulable workup including protein C, protein S, lupus anticoagulant, and antithrombin III was ordered, will add beta2 glycoprotein IgM and IgG and anticardiolipin IgM and IgG. So far, patient negative for prothrombin gene mutation, factor V Leiden. Protein C normal, Protein S decreased but may be due to recent clot. AT III normal at 29. Lupus anticoagulant not detected, however Beta2 glycoprotein IgG and anticardiolipin IgG are positive, suggesting antiphosphlolipid antibody syndrome. Would need to repeat in 12 weeks to confirm, however given possible APLA syndrome would recommend Coumadin rather than one of the new oral anticoagulants. Patient will need to be started on coumadin with lovenox bridge. - Patient received coumadin 5 mg 04/11-04/14/17, coumadin was increased to 6 mg daily on 04/15/17. Coumadin was increased to 10 mg on 04/16/17 per primary team. INR 04/19/17 2.02, 2.33 on 04/20/17, 2.63 to 04/21/17, goal INR 2-3. Ok from hematology perspective to discharge home as long as case management has obtained auth for coumadin. Patient will follow-up with me in hematology clinic and will call my office to schedule an appointment on 04/23/17. - Patient with heavy menses, Dr. Lange discussed the case with gynecology, oral contraceptives contraindicated due to PE. Improved today - patient should follow up with gynecology (case management request placed). Monitor H/H, currently stable. - SHAWNA positive at 1:80, consider rheumatology outpatient follow-up (patient was told that she may have an autoimmune disorder in the past such as lupus or MS). 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 Pelvic US showed enlarged right ovary with a probable hemorrhagic cyst measuring 6.1 x 5.7 x 5.4 cm. Due to the large size, gynecologic consultation is advised. Patient should follow up with nurse gynecology as an outpatient. 3. Family history of sickle cell disease. Screen negative for sickle cells. Hemoglobinopathy eval showed low Hgb A2 with associated microcytosis, possible alpha thalassemia trait. Problems: Consultation Date/Type/Reason Admit Date/Time April 04, 2017 at 12:47 Initial Consult Date 04/04/17 Type of Consultation: Hematology Referring Provider: GERALD TAYLOR 24 HR Interval Summary Free Text/Dictation Patient doing well, states that her breathing is now fine without any "tick" in her throat that previously caused her to cough. Menses have ended. Exam/Review of Systems Vital Signs Vitals Vital Signs Date Time Temp Pulse Resp B/P Pulse Ox O2 Delivery O2 Flow Rate FiO2 04/21/17 07:40 98.0 82 19 121/68 98 Intake and Output 04/20/17 04/20/17 04/21/17 15:00 23:00 07:00 Intake Total 1160 ml 480 ml Output Total 600 ml Balance 560 ml 480 ml Exam Constitutional: alert, oriented Psych: nl mood/affect, no complaints Head: atraumatic, normocephalic Eyes: nl conjunctiva ENMT: nl external ears & nose, scattered right cervical nonspecific LN Neck: non-tender, supple Respiratory: clear to auscultation, normal air movement Cardiovascular: regular rate and rhythm Gastrointestinal: soft Musculoskeletal: nl extremities to inspection Results Result Diagram: 04/21/1742904/21/17 0430 Results 24 hrs Laboratory Tests Test 04/20/17 12:29 04/20/17 17:59 04/20/17 20:10 04/21/17 04:30 Bedside Glucose 137 172 120 White Blood Count 6.2 Red Blood Count 3.99 L Hemoglobin 9.9 L Hematocrit 32.1 L Mean Corpuscular Volume 80.5 L Mean Corpuscular Hemoglobin 24.8 L Mean Corpuscular Hemoglobin Concent 30.8 L Red Cell Distribution Width 16.8 H Platelet Count 329 Mean Platelet Volume 10.1 Neutrophils % 48.9 Lymphocytes % 39.5 Monocytes % 7.3 Eosinophils % 1.9 Basophils % 0.5 Nucleated Red Blood Cells % 0.0 Neutrophils # 3.0 Lymphocytes # 2.4 Monocytes # 0.5 Eosinophils # 0.1 Basophils # 0.0 Nucleated Red Blood Cells # 0.0 Prothrombin Time 28.4 H Prothrombin Time Ratio 2.2 INR International Normalized Ratio 2.63 Sodium Level 139 Potassium Level 4.0 Chloride Level 109 Carbon Dioxide Level 24 Anion Gap 10 Blood Urea Nitrogen 17 Creatinine 0.63 Glucose Level 212 # Calcium Level 8.4 Total Bilirubin 0.0 L Direct Bilirubin 0.00 Indirect Bilirubin 0.0 Aspartate Amino Transf (AST/SGOT) 28 Alanine Aminotransferase (ALT/SGPT) 55 Alkaline Phosphatase 90 Total Protein 7.1 Albumin 3.3 Globulin 3.80 H Albumin/Globulin Ratio 0.86 Test 04/21/17 08:53 Bedside Glucose 193 Medications Medications Current Medications Ondansetron HCl (Zofran Inj) 4 mg Q6H PRN IV NAUSEA AND/OR VOMITING Last administered on 04/13/17 23:50; Admin Dose 4 MG; Start 04/04/17 at 16:00 Acetaminophen (Tylenol Tab) 650 mg Q6H PRN PO PAIN LEVEL 1-3 OR FEVER Last administered on 04/21/17 08:54; Admin Dose 650 MG; Start 04/04/17 at 16:00 Morphine Sulfate (morphine) 2 mg Q4H PRN IV SEVERE PAIN LEVEL 7-10 Last administered on 04/16/17 03:01; Admin Dose 2 MG; Start 04/04/17 at 16:00 Magnesium Hydroxide (Milk Of Mag) 30 ml DAILY PRN PO CONSTIPATION Last administered on 04/12/17 15:00; Admin Dose 30 ML; Start 04/04/17 at 16:00 Bisacodyl (Dulcolax) 5 mg DAILY PRN PO CONSTIPATION; Start 04/04/17 at 16:00 Famotidine (Pepcid) 20 mg Q12 PO Last administered on 04/21/17 08:53; Admin Dose 20 MG; Start 04/04/17 at 21:00 Enoxaparin Sodium (Lovenox) 75 mg Q12 SC Last administered on 04/21/17 08:57; Admin Dose 75 MG; Start 04/04/17 at 21:00 Hydralazine HCl (Apresoline) 10 mg Q6H PRN IV SBP>160; Start 04/04/17 at 16:00 Gabapentin (Neurontin) 600 mg QHS PO Last administered on 04/20/17 20:12; Admin Dose 600 MG; Start 04/04/17 at 21:00 Miscellaneous Information 1 ea NOTE XX ; Start 04/04/17 at 17:00 Glucose (Glutose) 15 gm Q15M PRN PO DECREASED GLUCOSE; Start 04/04/17 at 17:00 Glucose (Glutose) 22.5 gm Q15M PRN PO DECREASED GLUCOSE; Start 04/04/17 at 17:00 Dextrose (D50w Syringe) 25 ml Q15M PRN IV DECREASED GLUCOSE; Start 04/04/17 at 17:00 Dextrose (D50w Syringe) 50 ml Q15M PRN IV DECREASED GLUCOSE; Start 04/04/17 at 17:00 Glucagon (Glucagen) 1 mg Q15M PRN IM DECREASED GLUCOSE; Start 04/04/17 at 17:00 Glucose (Glutose) 15 gm Q15M PRN BUCCAL DECREASED GLUCOSE; Start 04/04/17 at 17: 00 Oxycodone/ Acetaminophen (Percocet (5/ 325)) 1 tab Q4H PRN PO PAIN Last administered on 04/18/17 17:45; Admin Dose 1 TAB; Start 04/05/17 at 12:00 Ciprofloxacin HCl (Ciloxan 0.3% Oph) 1 drop Q4H BOTH EYES Last administered on 04/21/17 06:13; Admin Dose 1 DROP; Start 04/06/17 at 15:00 Insulin Glargine (Lantus) 27 unit DAILY@20 SC Last administered on 04/20/17 20 :17; Admin Dose 27 UNIT; Start 04/08/17 at 20:00 Lorazepam (Ativan) 1 mg Q6H PRN IM anxiety Last administered on 04/10/17 17: 12; Admin Dose 1 MG; Start 04/10/17 at 16:30 Acetam/Butalbital/ Caffeine/Codeine (Fioricet/ Codeine) 2 cap Q4H PRN PO SEVERE PAIN LEVEL 7-10; Start 04/11/17 at 16:00 Warfarin Sodium (Coumadin) 10 mg DAILY@17 PO Last administered on 04/20/17 18: 00; Admin Dose 10 MG; Start 04/16/17 at 17:00 TO,ALVINO Matias MD April 21, 2017 10:35
[2017-04-21] MEDS ORDERED: COU10 PO (13:31)
--- NOTE | 2017-04-21 14:49 | DS ---
Date/Time of Note Date/Time of Note DATE: 04/21/17 TIME: 14:43 Discharge Summary Admission/Discharge Info Admit Date/Time April 04, 2017 at 12:47 Discharge Date/Time Final Diagnosis 1. Bilateral pulmonary embolism 2. Chest pain secondary to #1 3. Type 2 diabetes 4. Diabetic neuropathy 5. Asthma 6. Right common femoral artery stenosis 7. Iron deficiency anemia 8. Right ovarian cyst Patient Condition: Stable Consults 1. Dr. Barrington Aguirre 2. Dr. Tracy Arellano 3. Dr. Manrique [facility] Hospital Course This is a 51-year-old female with history of pulmonary embolism on Coumadin and type 2 diabetes as well as diabetic neuropathy and asthma and diabetic gastroparesis came to [facility] due to reports of chest pain which radiated to her left arm. She denied any nausea vomiting or diaphoresis but she did have some shortness of breath associated with it. She was brought to [facility]. She did have a CT angiogram of the chest that did show acute to subacute chronic bilateral lower lobe ulnar emboli involving the lower lobes and upper lobes bilaterally extending to subsegmental level and associated with flattening of the intraventricular septum. Patient was seen by human projectile for this issue as well as by surgery nurse. Initially we did try patient ablation on Eliquis but after review by human projectile he was noted that the patient had antiphospholipid syndrome and better medication regimen would be Coumadin. Of note was reported that patient was previously on Coumadin for her pulmonary embolism but due to reports patient was supposed to have home health services visit the patient and have daily INR check for Coumadin dosing but did not receive home health services and therefore did not appropriate dosing for Coumadin. After discussion with human projectile and after review of patient's insurance we did try to get the patient Lovenox bridge to Coumadin at home but due to insurance issues she was not able to receive Lovenox medication. It was therefore plan for patient to get therapeutic level of Coumadin dosing prior to discharge. During her course of stay she did improve. She did have good response from Coumadin medication she was otherwise optimized medically. She did report resolution of her chest pain. She was otherwise optimized medically with insulin for diabetes and continued on Neurontin for diabetic neuropathy. No active bronchospasm was noted for her history of asthma but we did provide her with bronchodilators as needed. She also seen with a right common femoral artery stenosis possibly 30-49% and vascular surgeon did follow. There is no flow-limiting obstruction for vascular surgery and we did continue the patient on Coumadin. Patient did have iron deficiency anemia and we did continue her on iron supplement we also set the patient up with outpatient [employer] for history of ovarian cyst on the right side. During the course of stay she did improve. The plan of care was discussed with the patient and patient did verbalize understanding. On the day of discharge patient was in stable condition Discussed plan of care with Dr. Spears Discharge process 40 Home Meds Active Scripts Warfarin Sodium (Coumadin) 10 Mg Tablet, 8 MG PO DAILY@17 for 5 Days, TAB Prov:BENJAMIN ADKINS 04/21/17 Docusate Sodium* (Colace*) 100 Mg Capsule, 100 MG PO BID Y for CONSTIPATION, # 60 CAP Prov:BENJAMIN ADKINS 04/08/17 Ferrous Sulfate* (Ferrous Sulfate*) 325 Mg Tabec, 325 MG PO TID for 30 Days, TAB Prov:BENJAMIN ADKINS 04/08/17 [Oxycodone/Acetamin (5/325)] 1 TAB TAB No Conflict Check, 1 TAB PO Q4H Y for PAIN, #20 Prov:BENJAMIN ADKINS 04/08/17 Insulin Aspart* (Novolog Insulin Pen*) 100 Unit/Ml Soln, 10 UNIT SC WITH MEALS for 30 Days Prov:BENJAMIN ADKINS 04/08/17 Insulin Glargine* (Lantus*) 100 Unit/Ml Soln, 28 UNIT SC DAILY@20 for 30 Days Prov:BENJAMIN ADKINS 04/08/17 Reported Medications Gabapentin* (Gabapentin*) 600 Mg Tablet, 600 MG PO QHS, #60 TAB 04/04/17 Albuterol Sulfate* (Ventolin HFA*) 18 Gm Hfa.aer.ad, 2 PUFF IH Q4H Y for WHEEZING AND RESP DISTRESS, EA 05/16/15 Follow-up Plan CONDITION Patient Condition: Stable HOME CARE INSTRUCTIONS: Special Diet: Carb. control FOLLOW UP/APPOINTMENTS Appointments 1. Follow up with Dr. Tracy Arellano/ Dr. Acacia Hampton in one week 2. Follow up with Dr. Burton Niño in one to two weeks Primary Care Provider Rhina Bethea Pending Labs Laboratory Tests Test 5/21/17 17:59 04/20/17 20:10 04/21/17 04:30 04/21/17 08:53 Bedside Glucose 172mg/dL (70-220) 120mg/dL (70-220) 193mg/dL (70-220) White Blood Count 6.210^3/ul (4.8-10.8) Red Blood Count 3.9910^6/ul (4.20-5.40) Hemoglobin 9.9g/dl (12.0-16.0) Hematocrit 32.1% (37.0-47.0) Mean Corpuscular Volume 80.5fl (82.0-101.0) Mean Corpuscular Hemoglobin 24.8pg (29.0-33.0) Mean Corpuscular Hemoglobin Concent 30.8g/dl (32.0-37.0) Red Cell Distribution Width 16.8% (11.5-14.5) Platelet Count 20790^3/UL (140-415) Mean Platelet Volume 10.1fl (7.4-10.4) Neutrophils % 48.9% (39.0-77.0) Lymphocytes % 39.5% (15.0-51.0) Monocytes % 7.3% (0.0-11.0) Eosinophils % 1.9% (0.0-7.0) Basophils % 0.5% (0.0-2.0) Nucleated Red Blood Cells % 0.0/100WBC (0.0-0.0) Neutrophils # 3.010^3/ul (1.6-7.5) Lymphocytes # 2.410^3/ul (0.8-2.9) Monocytes # 0.510^3/ul (0.3-0.9) Eosinophils # 0.110^3/ul (0.0-0.5) Basophils # 0.010^3/ul (0.0-0.1) Nucleated Red Blood Cells # 0.010^3/ul (0.0-0.0) Prothrombin Time 28.4Sec (12.2-14.2) Prothrombin Time Ratio 2.2 INR International Normalized Ratio 2.63 Sodium Level 139mmol/L (135-144) Potassium Level 4.0mmol/L (3.5-5.1) Chloride Level 109mmol/L (97-110) Carbon Dioxide Level 24mmol/L (21-31) Anion Gap 10 (8-16) Blood Urea Nitrogen 17mg/dl (7-20) Creatinine 0.63mg/dl (0.44-1.00) Glucose Level 212mg/dl (70-220) Calcium Level 8.4mg/dl (8.4-10.2) Total Bilirubin 0.0mg/dl (0.2-1.3) Direct Bilirubin 0.00mg/dl (0.00-0.20) Indirect Bilirubin 0.0mg/dl (0-1.1) Aspartate Amino Transf (AST/SGOT) 28IU/L (15-46) Alanine Aminotransferase (ALT/SGPT) 55IU/L (13-69) Alkaline Phosphatase 90IU/L (42-121) Total Protein 7.1g/dl (6.1-8.1) Albumin 3.3g/dl (3.3-4.9) Globulin 3.80g/dl (1.3-3.2) Albumin/Globulin Ratio 0.86 Test 04/21/17 11:13 04/21/17 11:31 04/21/17 11:57 04/21/17 13:02 Bedside Glucose 66mg/dL (70-220) 132mg/dL (70-220) 120mg/dL (70-220) 150mg/dL (70-220) Test 04/21/17 13:59 Bedside Glucose 216mg/dL (70-220) BENJAMIN ADKINS April 21, 2017 14:49
== END 2017-04-21 15:10 | disposition home or self-care (01) | DRG 176 ==
LOC: E/R 12:43 → TEL 12:47 → MS1 04-12 22:40
PROVIDERS: ADMIT Family Medicine; ATTEND Family Medicine
DX: I26.99 Other pulmonary embolism without acute cor pulmonale (principal); E11.40 Type 2 diabetes mellitus with diabetic neuropathy, unspecified; D68.61 Antiphospholipid syndrome; K31.84 Gastroparesis; E11.43 Type 2 diabetes mellitus with diabetic autonomic (poly)neuropathy; I82.622 Acute embolism and thrombosis of deep veins of left upper extremity; R51 Headache; H53.9 Unspecified visual disturbance; Z79.01 Long term (current) use of anticoagulants; Z79.4 Long term (current) use of insulin; Z86.711 Personal history of pulmonary embolism; J45.909 Unspecified asthma, uncomplicated; R07.9 Chest pain, unspecified; H10.9 Unspecified conjunctivitis; N83.201 Unspecified ovarian cyst, right side; I70.208 Unspecified atherosclerosis of native arteries of extremities, other extremity; D50.9 Iron deficiency anemia, unspecified; R07.81 Pleurodynia; Z83.2 Family history of diseases of the blood and blood-forming organs and certain disorders involving the immune mechanism; Z86.73 Personal history of transient ischemic attack (TIA), and cerebral infarction without residual deficits; I83.12 Varicose veins of left lower extremity with inflammation; Z91.14 Patient's other noncompliance with medication regimen; N92.0 Excessive and frequent menstruation with regular cycle
CPT/HCPCS: 70551; 76830; 76856; 80048; 80053; 80061; 80307; 81001; 81003; 81240; 82306; 82550; 82553; 82652; 82728; 82962; 83020; 83036; 83540; 83735; 83890; 84100; 84439; 84443; 84484; 84703; 85014; 85018; 85025; 85300; 85302; 85305; 85378; 85610; 85613; 85660; 85730; 86038; 86146; 86147; 86304; 93306; 93922; 93970; 93971; J1815; J2060; J2270; J2405; J2916; J3475